=== PATIENT | female | born 1940 | race Caucasian/White ===

== ENCOUNTER → 2016-09-04 | Outpatient (REF) | payer MEDICARE, OTHER ==
[~2016-09-04] MED LIST: ACET50TAOT PO; ASPI1TAB PO; ATOR1TAB21 PO; CALCTAB68 PO; CIPR500T3 PO; CIPR500T89 PO; COUM2.5T11 PO; DYAZ37.5 PO; EYEDRO OU; FLAG500T PO; LEVO50TA45 PO; LEXA1TAB PO; LEXA1TAB2 PO; LIDO5TD TD; LIPI10TA PO; MAGN400T5 PO; MECL-68 PO; METR500T10 PO; OXYC1TAB23 PO; PERCOCET PO; POTA10CA PO; PREV30CA11 PO; SYNT100T PO; SYNT88TA2 PO; TRIA37.5 PO; TYLE325T5 PO; VITA100066 PO; VITA400C2 PO; VITA500T3 PO; XANA0.5T PO; XARE10TA PO; XARE15TA PO; ZOFR20TA PO; [UNRECOGNIZED DRUG - CODE] PO; antivert PO; kdur PO; lidoderm patch TOP
== END ==
LOC: M SFHCPLAZ 16:58
PROVIDERS: ATTEND Family Medicine
DX: N30.01 Acute cystitis with hematuria (principal)

== ENCOUNTER → 2016-09-11 | Outpatient (CLI) | payer MEDICARE, OTHER ==
[2016-09-11 16:53] LABS: BASO % 0.4 % (0.0-1.0); EOS # 0.1 K/mm3 (0.0-0.50); EOS % 1.4 % (0.0-3.0); LARGE UNSTAINED CELL # 0.1 K/mm3 (0.0-0.4); LARGE UNSTAINED CELL % 0.9 % (0.0-4.0); LYMPH # 1.9 K/mm3 (1.5-4.5); LYMPH % 18.4 % (24.0-44.0); MEAN CORPUSCULAR HEMOGLOBIN 29.8 pg (27.0-33.0); MEAN CORPUSCULAR HGB CONC 33.3 g/dl (32.0-36.5); MEAN CORPUSCULAR VOLUME 89.6 fl (80.0-96.0); MONO # 0.7 K/mm3 (0.0-0.8); MONO % 6.6 % (0.0-5.0); NEUTROPHILS # 7.1 K/mm3 (1.8-7.7); NEUTROPHILS % 72.3 % (36.0-66.0); PLATELET COUNT, AUTOMATED 231 k/mm3 (150-450); RED CELL DISTRIBUTION WIDTH 14.1 % (11.5-14.5); WHITE BLOOD COUNT 9.8 K/mm3 (4.0-10.0)
--- NOTE | 2016-09-11 17:13 | REP ---
Clinical: Dyspnea. Pneumonia. Technique: PA and lateral. Comparison: 06/29/2016. Findings: Mediastinum and cardiac silhouette are normal. Trace left basilar fibroatelectatic changes are suggested and require correlation. No discrete focal consolidation, effusion, or pneumothorax. Skeletal structures intact. Impression: Acute versus chronic trace left basilar fibroatelectatic change. Signed by Nikita Song MD 09/11/2016 05:04 P
[2016-09-11 17:37] LABS: ERYTHROCYTE SEDIMENTATION RATE 2 mm/hr (0-30)
== END ==
LOC: M RAD 16:42
PROVIDERS: ATTEND Physician Assistant Medical
DX: J18.9 Pneumonia, unspecified organism (principal)
CPT/HCPCS: 71020; 85025; 85379; 85652; G0463

== ENCOUNTER → 2016-09-15 | Outpatient (REF) | payer MEDICARE, OTHER | LOC: M SFHCPLAZ 15:44 | PROVIDERS: ATTEND Family Medicine | DX: J06.9 Acute upper respiratory infection, unspecified (principal) | CPT/HCPCS: 87486; 87581; 87633; 87798; G0463 ==

== ENCOUNTER → 2017-01-11 | Outpatient (REF) | payer MEDICARE, OTHER ==
[~2017-01-11] MED LIST changes: +CIPR-249 PO; -CIPR500T89 PO; -COUM2.5T11 PO; +COUM2.5T17 PO; +METR1TAB66 PO; -METR500T10 PO; +PREV1CAP PO; -PREV30CA11 PO; -VITA400C2 PO; +VITA400C7 PO
== END ==
LOC: M SFHCPLAZ 11:50
PROVIDERS: ATTEND Family Medicine
DX: N30.01 Acute cystitis with hematuria (principal)
CPT/HCPCS: 81002; 87088; 87186; G0463

== ENCOUNTER → 2017-01-26 | Outpatient (REF) | payer MEDICARE, OTHER ==
[2017-01-26 11:21] LABS: MEAN CORPUSCULAR HEMOGLOBIN 30.6 pg (27.0-33.0); MEAN CORPUSCULAR HGB CONC 33.1 g/dl (32.0-36.5); MEAN CORPUSCULAR VOLUME 92.6 fl (80.0-96.0); RED CELL DISTRIBUTION WIDTH 13.2 % (11.5-14.5); WHITE BLOOD COUNT 8.7 K/mm3 (4.0-10.0)
[2017-01-26 11:32] LABS: ALBUMIN 3.2 GM/DL (3.2-5.2); BILIRUBIN,TOTAL 0.4 MG/DL (0.2-1.0); CALCIUM LEVEL 9.4 MG/DL (8.8-10.2); CREATININE FOR GFR 1.12 MG/DL (0.55-1.02); FREE T4 0.87 NG/DL (0.76-1.46); GLOMERULAR FILTRATION RATE 50.5 (>39); MAGNESIUM LEVEL 1.8 MG/DL (1.8-2.4); POTASSIUM SERUM 3.7 MEQ/L (3.5-5.1); TOTAL PROTEIN 6.4 GM/DL (6.4-8.2)
[2017-01-26 13:43] LABS: FOLATE 13.2 NG/ML
== END ==
LOC: M SFHCPLAZ 07:57
PROVIDERS: ATTEND Nurse Practitioner Family
DX: E53.8 Deficiency of other specified B group vitamins (principal); I10 Essential (primary) hypertension; E03.9 Hypothyroidism, unspecified; R73.03 Prediabetes; N18.3 Chronic kidney disease, stage 3 (moderate); E83.40 Disorders of magnesium metabolism, unspecified; E55.9 Vitamin D deficiency, unspecified

== ENCOUNTER → 2017-02-01 | Outpatient (REF) | payer MEDICARE, OTHER ==
[2017-02-01 12:20] LABS: CALCIUM LEVEL 9.5 MG/DL (8.8-10.2); CREATININE FOR GFR 1.24 MG/DL (0.55-1.02); GLOMERULAR FILTRATION RATE 44.9 (>39); POTASSIUM SERUM 4.1 MEQ/L (3.5-5.1)
== END ==
LOC: M SFHCPLAZ 09:03
PROVIDERS: ATTEND Family Medicine
DX: N18.3 Chronic kidney disease, stage 3 (moderate) (principal)
CPT/HCPCS: 80048; G0463

== ENCOUNTER → 2017-02-09 | Outpatient (REF) | payer MEDICARE, OTHER ==
[2017-02-09 14:38] LABS: CALCIUM LEVEL 8.7 MG/DL (8.8-10.2); CREATININE FOR GFR 1.12 MG/DL (0.55-1.02); GLOMERULAR FILTRATION RATE 50.5 (>39); MAGNESIUM LEVEL 2.3 MG/DL (1.8-2.4); POTASSIUM SERUM 3.9 MEQ/L (3.5-5.1)
== END ==
LOC: M LABDRAW1 13:40
PROVIDERS: ATTEND Internal Medicine Cardiovascular Disease
DX: I49.3 Ventricular premature depolarization (principal); I49.1 Atrial premature depolarization

== ENCOUNTER → 2017-03-01 | Outpatient (CLI) | payer MEDICARE, OTHER ==
--- NOTE | 2017-03-01 11:52 | REP ---
DUPLEX EXTREMITY VENOUS ULTRASOUND, BILATERAL LOWER EXTREMITY: HISTORY: Bilateral leg edema. History of prior pulmonary emboli. FINDINGS: The deep veins are anechoic and fully compressible from the groin to the popliteal fossa in the right and left lower extremity. Color flow imaging is homogeneous. Spectral Doppler interrogation demonstrates intact respiratory variation in flow and normal manual augmentation of flow. There is no evidence of deep vein thrombosis. There is a Self's cyst in the posteromedial popliteal soft tissues measuring 3.8 x 1.0 x 1.8 cm. IMPRESSION: Negative bilateral lower extremity duplex venous ultrasound. No evidence of deep vein thrombosis. There is a 3.8 cm Self's cyst in the posterior popliteal soft tissues. Signed by Mal Mesa MD 03/01/2017 02:11 P
== END ==
LOC: M RAD 11:08
PROVIDERS: ATTEND Family Medicine
DX: M71.21 Synovial cyst of popliteal space [Baker], right knee (principal); R60.0 Localized edema
CPT/HCPCS: 93970; G0463

== ENCOUNTER → 2017-04-13 | Outpatient (REF) | payer MEDICARE, OTHER ==
[2017-04-13 12:14] LABS: INR 0.97
== END ==
LOC: M LABDRAW1 10:30
PROVIDERS: ATTEND Physical Medicine & Rehabilitation
DX: D69.1 Qualitative platelet defects (principal); Z79.01 Long term (current) use of anticoagulants

== ENCOUNTER → 2017-05-27 | Outpatient (REF) | payer MEDICARE, OTHER | LOC: M LAB REF 13:10 | PROVIDERS: ATTEND Physical Medicine & Rehabilitation | DX: M47.816 Spondylosis without myelopathy or radiculopathy, lumbar region (principal) ==

== ENCOUNTER → 2017-07-14 | Outpatient (CLI) | payer MEDICARE, OTHER | LOC: M WHC 08:52 | DX: Z12.31 Encounter for screening mammogram for malignant neoplasm of breast (principal) | CPT/HCPCS: G0202 ==

== ENCOUNTER 2017-08-02 10:07 | Day surgery (SDC) | payer MEDICARE, OTHER ==
[2017-08-02] MEDS: NS 1,000 ML IV (10:33)
== END 2017-08-02 12:27 | disposition home or self-care (01) ==
LOC: M OPP 10:07
DX: Z12.11 Encounter for screening for malignant neoplasm of colon (principal); K64.0 First degree hemorrhoids; D12.3 Benign neoplasm of transverse colon; E03.9 Hypothyroidism, unspecified; F32.9 Major depressive disorder, single episode, unspecified; F41.9 Anxiety disorder, unspecified; N18.3 Chronic kidney disease, stage 3 (moderate); I12.9 Hypertensive chronic kidney disease with stage 1 through stage 4 chronic kidney disease, or unspecified chronic kidney disease; E78.00 Pure hypercholesterolemia, unspecified; G47.30 Sleep apnea, unspecified; K21.9 Gastro-esophageal reflux disease without esophagitis; R06.83 Snoring; J45.909 Unspecified asthma, uncomplicated; M70.61 Trochanteric bursitis, right hip; G62.9 Polyneuropathy, unspecified; Z79.891 Long term (current) use of opiate analgesic; Z79.899 Other long term (current) drug therapy; Z88.8 Allergy status to other drugs, medicaments and biological substances; Z86.79 Personal history of other diseases of the circulatory system; Z91.89 Other specified personal risk factors, not elsewhere classified; Z96.642 Presence of left artificial hip joint; Z80.0 Family history of malignant neoplasm of digestive organs; Z80.42 Family history of malignant neoplasm of prostate
CPT/HCPCS: 45385

== ENCOUNTER → 2017-09-15 | Outpatient (REF) | payer MEDICARE, OTHER ==
[2017-09-15 16:20] LABS: APPEARANCE, URINE HAZY (CLEAR); BACTERIA, URINE AUTO 1+ (NEGATIVE); BILIRUBIN, URINE AUTO NEGATIVE (NEGATIVE); BLOOD, URINE BLOOD NEGATIVE (NEGATIVE); COLOR, URINE YELLOW (YELLOW); GLUCOSE, URINE (UA) AUTO NEGATIVE (NEGATIVE); KETONE, URINE AUTO NEGATIVE (NEGATIVE); LEUKOCYTE ESTERASE, URINE AUTO 2+ (NEGATIVE); MUCUS, URINE SMALL (NEGATIVE); NITRITE, URINE AUTO NEGATIVE (NEGATIVE); PROTEIN, URINE AUTO NEGATIVE (NEGATIVE); RBC, URINE AUTO 1 /HPF (0-3); SPECIFIC GRAVITY URINE AUTO 1.017 (1.002-1.035); SQUAMOUS EPITHELIAL CELL UR AU 2 /HPF (0-6); UROBILINOGEN, URINE AUTO 0.2 mg/dL (0.0-2.0); WBC, URINE AUTO 25 /HPF (0-3)
== END ==
LOC: M SFHCPLAZ 11:02
DX: R35.0 Frequency of micturition (principal)
CPT/HCPCS: 81001

== ENCOUNTER → 2017-09-15 | Outpatient (CLI) | payer MEDICARE, OTHER | LOC: M SMT 11:22 | DX: M25.78 Osteophyte, vertebrae (principal); M43.16 Spondylolisthesis, lumbar region; Z79.899 Other long term (current) drug therapy | CPT/HCPCS: 72114; 81001 ==

== ENCOUNTER → 2017-11-01 | Outpatient (REF) | payer MEDICARE, OTHER ==
[2017-11-01 16:16] LABS: BLOOD UREA NITROGEN 16 MG/DL (7-18)
[2017-11-01 16:16] LABS: CREATININE FOR GFR 1.11 MG/DL (0.55-1.30); GLOMERULAR FILTRATION RATE 50.9 (>39)
== END ==
LOC: M LABDRAW1 15:00
DX: M51.36 Other intervertebral disc degeneration, lumbar region (principal); M51.37 Other intervertebral disc degeneration, lumbosacral region; M43.16 Spondylolisthesis, lumbar region
CPT/HCPCS: 82565

== ENCOUNTER → 2017-11-08 | Outpatient (REF) | payer MEDICARE, OTHER ==
[2017-11-08 12:04] LABS: PLATELET COUNT, AUTOMATED 288 10^3/uL (150-450)
[2017-11-08 12:17] LABS: PARTIAL THROMBOPLASTIN TIME 27.7 SECONDS (26.8-37.9); PROTHROMBIN TIME 13.3 SECONDS (12.4-14.5)
[2017-11-08 12:28] LABS: COLLAGEN EPINEPHRINE 92 SECONDS (74-162)
[2017-11-08 12:31] LABS: AMPHETAMINES URINE REFLEX NEGATIVE (NEGATIVE); BARBITURATES URINE REFLEX NEGATIVE (NEGATIVE); BENZODIAZEPINES URINE REFLEX NEGATIVE (NEGATIVE); CANNABINOIDS URINE REFLEX NEGATIVE (NEGATIVE); COCAINE METABOLITE URINE REFLE NEGATIVE (NEGATIVE); METHADONE URINE REFLEX NEGATIVE (NEGATIVE); OPIATES URINE REFLEX NEGATIVE (NEGATIVE); PHENCYCLIDINE URINE REFLEX NEGATIVE (NEGATIVE)
== END ==
LOC: M LABDRAW1 10:26
DX: Z01.818 Encounter for other preprocedural examination (principal); M51.37 Other intervertebral disc degeneration, lumbosacral region; Z79.899 Other long term (current) drug therapy
CPT/HCPCS: 85049

== ENCOUNTER → 2017-11-24 | Outpatient (CLI) | payer MEDICARE, OTHER ==
[2017-11-24 13:28] LABS: D-DIMER QUANT 491.8 ng/ml (<500)
== END ==
LOC: M RAD 12:28
DX: M71.21 Synovial cyst of popliteal space [Baker], right knee (principal); M79.89 Other specified soft tissue disorders; R06.02 Shortness of breath
CPT/HCPCS: 71046

== ENCOUNTER → 2017-12-06 | Outpatient (REF) | payer MEDICARE, OTHER ==
[2017-12-06 14:04] LABS: HEMATOCRIT 47.6 % (36.0-47.0); HEMOGLOBIN 15.4 g/dl (12.0-15.5); MEAN CORPUSCULAR HEMOGLOBIN 29.8 pg (27.0-33.0); MEAN CORPUSCULAR HGB CONC 32.4 g/dl (32.0-36.5); MEAN CORPUSCULAR VOLUME 92.2 fl (80.0-96.0); PLATELET COUNT, AUTOMATED 267 10^3/uL (150-450); RED BLOOD COUNT 5.16 10^6/uL (4.00-5.40); RED CELL DISTRIBUTION WIDTH 13.5 % (11.5-14.5); WHITE BLOOD COUNT 18.3 10^3/uL (4.0-10.0)
[2017-12-06 14:45] LABS: ANION GAP 8 MEQ/L (8-16); BLOOD UREA NITROGEN 17 MG/DL (7-18); CALCIUM LEVEL 8.6 MG/DL (8.8-10.2); CARBON DIOXIDE LEVEL 29 MEQ/L (21-32); CHLORIDE LEVEL 106 MEQ/L (98-107); CREATININE FOR GFR 1.12 MG/DL (0.55-1.30); GLOMERULAR FILTRATION RATE 50.4 (>39); GLUCOSE, FASTING 95 MG/DL (70-100); SODIUM LEVEL 143 MEQ/L (136-145)
== END ==
LOC: M LABDRAW1 11:30
DX: I31.3 Pericardial effusion (noninflammatory) (principal); E87.6 Hypokalemia
CPT/HCPCS: 80048

== ENCOUNTER → 2018-04-20 | Outpatient (CLI) | payer MEDICARE, OTHER ==
[~2018-04-20] MED LIST changes: -ACET50TAOT PO; -ASPI1TAB PO; -ATOR1TAB21 PO; -CALCTAB68 PO; -CIPR-249 PO; -CIPR500T3 PO; -COUM2.5T17 PO; -DYAZ37.5 PO; -EYEDRO OU; -FLAG500T PO; +GASTROGRAFIN SOLUTION 30ML (Q9963) As Ordered; -LEVO50TA45 PO; -LEXA1TAB PO; -LEXA1TAB2 PO; -LIDO5TD TD; -LIPI10TA PO; -MAGN400T5 PO; -MECL-68 PO; -METR1TAB66 PO; -OXYC1TAB23 PO; -PERCOCET PO; -POTA10CA PO; -PREV1CAP PO; -SYNT100T PO; -SYNT88TA2 PO; -TRIA37.5 PO; -TYLE325T5 PO; -VITA100066 PO; -VITA400C7 PO; -VITA500T3 PO; -XANA0.5T PO; -XARE10TA PO; -XARE15TA PO; -ZOFR20TA PO; -[UNRECOGNIZED DRUG - CODE] PO; -antivert PO; -kdur PO; -lidoderm patch TOP
== END ==
LOC: M RAD 15:11
DX: R11.2 Nausea with vomiting, unspecified (principal); Z90.49 Acquired absence of other specified parts of digestive tract; K57.30 Diverticulosis of large intestine without perforation or abscess without bleeding; Z90.710 Acquired absence of both cervix and uterus; K76.89 Other specified diseases of liver
CPT/HCPCS: Q9963

== ENCOUNTER → 2018-04-26 | Outpatient (CLI) | payer MEDICARE, OTHER | LOC: M RAD 08:08 | DX: R10.84 Generalized abdominal pain (principal) | CPT/HCPCS: 76705 ==

== ENCOUNTER → 2018-05-12 | Outpatient (REF) | payer MEDICARE, OTHER ==
[2018-05-12 12:49] LABS: ANION GAP 11 MEQ/L (8-16); BLOOD UREA NITROGEN 9 MG/DL (7-18); CALCIUM LEVEL 9.1 MG/DL (8.8-10.2); CARBON DIOXIDE LEVEL 29 MEQ/L (21-32); CHLORIDE LEVEL 102 MEQ/L (98-107); CREATININE FOR GFR 0.95 MG/DL (0.55-1.30); GLOMERULAR FILTRATION RATE > 60.0 (>39); GLUCOSE, FASTING 130 MG/DL (70-100); MAGNESIUM LEVEL 1.7 MG/DL (1.8-2.4); POTASSIUM SERUM 3.8 MEQ/L (3.5-5.1); SODIUM LEVEL 142 MEQ/L (136-145)
== END ==
LOC: M SHH 12:02
DX: I10 Essential (primary) hypertension (principal); E87.6 Hypokalemia
CPT/HCPCS: 83735

== ENCOUNTER → 2018-05-25 | Outpatient (CLI) | payer MEDICARE, OTHER ==
[2018-05-25 07:47] LABS: AMORPHOUS SEDIMENT SMALL (NEGATIVE); APPEARANCE, URINE TURBID (CLEAR); BACTERIA, URINE AUTO 3+ (NEGATIVE); BILIRUBIN, URINE AUTO NEGATIVE (NEGATIVE); BLOOD, URINE BLOOD 1+ (NEGATIVE); COLOR, URINE AMBER (YELLOW); GLUCOSE, URINE (UA) AUTO NEGATIVE (NEGATIVE); KETONE, URINE AUTO NEGATIVE (NEGATIVE); LEUKOCYTE ESTERASE, URINE AUTO 3+ (NEGATIVE); NITRITE, URINE AUTO POSITIVE (NEGATIVE); PROTEIN, URINE AUTO 1+ mg/dL (NEGATIVE); RBC, URINE AUTO 14 /HPF (0-3); SPECIFIC GRAVITY URINE AUTO 1.016 (1.002-1.035); SQUAMOUS EPITHELIAL CELL UR AU 4 /HPF (0-6); TRANSITIONAL EPITHELIAL AUTO 2 /HPF; UROBILINOGEN, URINE AUTO 0.2 mg/dL (0.0-2.0); WBC, URINE AUTO TNTC /HPF (0-3)
[2018-05-25 08:05] LABS: ANION GAP 8 MEQ/L (8-16); BLOOD UREA NITROGEN 15 MG/DL (7-18); CALCIUM LEVEL 9.9 MG/DL (8.8-10.2); CARBON DIOXIDE LEVEL 29 MEQ/L (21-32); CHLORIDE LEVEL 105 MEQ/L (98-107); GLOMERULAR FILTRATION RATE 46.4 (>39); GLUCOSE, FASTING 108 MG/DL (70-100); POTASSIUM SERUM 4.7 MEQ/L (3.5-5.1); SODIUM LEVEL 142 MEQ/L (136-145)
== END ==
LOC: M LAB 07:08
DX: I10 Essential (primary) hypertension (principal); E03.9 Hypothyroidism, unspecified; R30.1 Vesical tenesmus
CPT/HCPCS: 83735

== ENCOUNTER → 2018-07-26 | Outpatient (CLI) | payer MEDICARE, OTHER ==
[~2018-07-26] MED LIST changes: +ACET500T15 PO; +ASPI1TAB PO; +ATOR1TAB21 PO; +BREO1INH INH; +CALCTAB68 PO; +CIPR-249 PO; +CIPR500T3 PO; +COUM2.5T17 PO; +DYAZ37.5 PO; +EYEDRO OU; +FLAG500T PO; -GASTROGRAFIN SOLUTION 30ML (Q9963) As Ordered; +K-TA10TA2 PO; +KLOR10TA76 PO; +LEVO50TA45 PO; +LEXA1TAB PO; +LEXA1TAB2 PO; +LIDO5TD TD; +LIPI10TA PO; +MAGN400T5 PO; +MECL-68 PO; +METR-201 PO; +OXYC1TAB23 PO; +PERCOCET PO; +PREV1CAP PO; +PROAAER10 INH; +SYNT100T PO; +SYNT88TA2 PO; +TRIA37.5 PO; +TYLE325T5 PO; +VITA100066 PO; +VITA400C7 PO; +VITA500T3 PO; +XANA0.5T PO; +XARE10TA PO; +XARE15TA PO; +ZOFR4TAB16 PO; +[UNRECOGNIZED DRUG - CODE] PO; +antivert PO; +kdur PO; +lidoderm patch TOP
--- NOTE | 2018-07-26 16:58 | REP ---
Digital diagnostic unilateral right breast mammography with CAD and focused right breast sonography: History: Screening mammography July 15, 2018 was BIRADS category 0 incomplete because of a 5 mm nodular density projecting just lateral to the plane of the nipple in the anterior third of the right breast in the 9 o'clock position. Comparison mammography is also reviewed from July 14, 2017 and July 06, 2016. Mammographic findings: Magnified focal spot compression CC, MLO and true ML views were obtained. These confirm the presence of a relatively low density sharply circumscribed 5 mm nodule lateral and slightly inferior to the plane of the nipple, 8-o'clock to 9-o'clock position. No other mammographic findings. Sonographic findings: The right breast is scanned sonographically from 8-o'clock to 10 o'clock focusing on the 9 o'clock area. Somewhat heterogeneous fibroglandular background echotexture is seen. No suspicious sonographic finding is observed. No cyst or mass lesion is seen. No sonographic correlate for the nodule. Impression: BIRADS category is felt to be best described as category 4 suspicious right breast imaging. Nodular neodensity 5 mm in diameter right breast anterior third inferolateral aspect. There is no sonographic correlate. Stereotactic needle biopsy of the right breast is recommended. BI-RADS/ACR category 4 mammogram. Suspicious abnormality - biopsy should be considered. Usually requires biopsy. This mammogram was interpreted with the aid of an FDA-approved computer-aided detection system. The patient states that she/he has not had a clinical breast exam in over a year. The patient letter being requested is m#[id number] . Electronically Signed by Mal Mesa MD 07/26/2018 05:11 P
== END ==
LOC: M RAD 14:24
PROVIDERS: ATTEND Family Medicine
DX: R92.8 Other abnormal and inconclusive findings on diagnostic imaging of breast (principal)

== ENCOUNTER → 2018-07-27 | Outpatient (REF) | payer MEDICARE, OTHER | LOC: M LABDRAW1 11:53 | PROVIDERS: ATTEND Physical Medicine & Rehabilitation | DX: M48.07 Spinal stenosis, lumbosacral region (principal); Z79.899 Other long term (current) drug therapy ==

== ENCOUNTER → 2018-08-09 | Outpatient (CLI) | payer MEDICARE, OTHER ==
[~2018-08-09] MED LIST changes: +LIDOCAINE 1% MDV 20ML VIAL As Ordered ONE
--- NOTE | 2018-08-09 16:41 | REP ---
Unilateral diagnostic right breast mammography and attempted stereotactic needle biopsy: History: Nodular neodensity identified on screening and diagnostic mammography from July 15, 2018 and July 26, 2018 in the left breast retroareolar region laterally. Comparison mammography is from those two dates as well as July 14, 2017. In anticipation of a lateral medial needle approach, a right lateral medial mammogram was obtained and a low density small sub-centimeter nodule was felt to be present in the retroareolar region. The patient was interviewed and informed consent was obtained. The patient was placed in a right lateral medial imaging projection and patient safety time-out was articulated and agreed to. Stereotactic imaging was performed several times with repositioning of the right breast in this projection and we could not identify the target nodule on any of the stereotactic images from the lateral medial projection. Accordingly, the patient was placed in a craniocaudal projection and again stereotactic targeting images fail to demonstrate the nodule. A craniocaudal view was obtained with the compression grid in place to see if we could identify the nodule and perhaps recommend needle localization directed excisional biopsy. However, once again the target was not visualized. Finally a standard craniocaudal mammography with repeat 3-D tomography view was obtained. A high-quality image was retrieved and neither the 2-D or the 3-D tomosynthesis images demonstrate the nodule. Accordingly, the stereotactic needle biopsy procedure was aborted. Impression: Stereotactic needle biopsy not performed because of failure to identify and reproduce the nodule on mammographic images. A small cyst which regressed or compressed away is a possibility. In any event, we could not accomplish any targeting. I would recommend 6-month followup unilateral right breast mammogram be performed. This was reviewed with the patient. This mammogram was interpreted with the aid of an FDA-approved computer-aided detection system. The patient letter being requested is m#[email or web address]. Electronically Signed by Mal Mesa MD 08/09/2018 05:39 P
== END ==
LOC: M RADPRO 10:58
PROVIDERS: ATTEND Family Medicine
DX: M54.5 Low back pain (principal); F32.2 Major depressive disorder, single episode, severe without psychotic features; J20.9 Acute bronchitis, unspecified

== ENCOUNTER → 2018-08-09 | Outpatient (CLI) | payer MEDICARE, OTHER ==
[~2018-08-09] MED LIST changes: -LIDOCAINE 1% MDV 20ML VIAL As Ordered ONE
[2018-08-09 11:27] LABS: BASO % 0.5 % (0.0-1.0); EOS # 0.1 10^3/uL (0.0-0.50); EOS % 1.1 % (0.0-3.0); HEMATOCRIT 46.2 % (36.0-47.0); HEMOGLOBIN 14.9 g/dl (12.0-15.5); LYMPH # 1.6 10^3/uL (1.5-4.5); LYMPH % 18.6 % (24.0-44.0); MEAN CORPUSCULAR HEMOGLOBIN 29.8 pg (27.0-33.0); MEAN CORPUSCULAR HGB CONC 32.3 g/dl (32.0-36.5); MEAN CORPUSCULAR VOLUME 92.4 fl (80.0-96.0); MONO # 0.6 10^3/uL (0.0-0.8); MONO % 6.8 % (0.0-5.0); NEUTROPHILS # 6.1 10^3/uL (1.8-7.7); NEUTROPHILS % 72.6 % (36.0-66.0); PLATELET COUNT, AUTOMATED 242 10^3/uL (150-450); WHITE BLOOD COUNT 8.4 10^3/uL (4.0-10.0)
[2018-08-09 11:52] LABS: ERYTHROCYTE SEDIMENTATION RATE 3 mm/hr (0-30)
[2018-08-09 11:58] LABS: RHEUMATOID FACTOR QUANT < 10.0 IU/ML (<15.0)
[2018-08-10 11:04] LABS: VITAMIN B12 LEVEL 527 PG/ML (232-1245)
== END ==
LOC: M LAB 10:45
PROVIDERS: ATTEND Family Medicine
DX: M54.5 Low back pain (principal); F32.2 Major depressive disorder, single episode, severe without psychotic features; J20.9 Acute bronchitis, unspecified

== ENCOUNTER → 2018-11-22 | Outpatient (REF) | payer MEDICARE, OTHER ==
[~2018-11-22] MED LIST changes: -ASPI1TAB PO; +ASPI81TA26 PO; +LIDO1PAD TD; -LIDO5TD TD; -METR-201 PO; +METR-265 PO
== END ==
LOC: M LAB REF 16:02
PROVIDERS: ATTEND Internal Medicine Gastroenterology
DX: R19.7 Diarrhea, unspecified (principal)

== ENCOUNTER → 2019-02-02 | Outpatient (CLI) | payer MEDICARE, OTHER ==
[~2019-02-02] MED LIST changes: +CYAN500T8 PO; -VITA500T3 PO
--- NOTE | 2019-02-02 11:10 | REP ---
UNILATERAL MAMMOGRAM RIGHT BREAST WITH 3D TOMOSYNTHESIS: Unilateral mammogram of the right breast is performed with 3D tomosynthesis. A 5 mm nodule is identified by mammography on the examinations of 07/15/2018 and 07/26/2018 and stereotactic biopsy was subsequently attempted 08/09/2018. However, the nodule could not be identified at the time of the biopsy. This is a 6 month followup. There is mild scattered fibroglandular tissue again noted in the right breast. The previously noted 5 mm nodule inferolaterally is no longer present. This probably represented a cyst which has resolved. No suspicious nodule is seen in the right breast. There is mild postsurgical architectural distortion from a remote benign excisional biopsy. No clustered microcalcifications are seen. IMPRESSION: BIRADS 2: BI-RADS/ACR category 2 mammogram. Benign Findings. ACR 2 benign mammogram right breast. Previously noted 5 mm nodule inferolaterally in the right breast is no longer present and probably represented a cyst which has now resolved. No suspicious mass or clustered microcalcifications. Recommend followup bilateral mammogram June 2019. This mammogram was interpreted with the aid of an FDA-approved computer-aided detection system. The patient states he/she had a clinical breast exam in 07/2018. The patient letter being requested is M1. Electronically Signed by Tulio Dahl MD 02/05/2019 07:07 P
== END ==
LOC: M RAD 09:55
PROVIDERS: ATTEND Family Medicine
DX: R92.0 Mammographic microcalcification found on diagnostic imaging of breast (principal)
CPT/HCPCS: 77065; G0279

== ENCOUNTER → 2019-07-14 | Outpatient (CLI) | payer MEDICARE, OTHER ==
[~2019-07-14] MED LIST changes: +POTA20PI2 PO; -[UNRECOGNIZED DRUG - CODE] PO
--- NOTE | 2019-07-14 14:16 | REPMRS ---
Patient History The patient states she has not had a clinical breast exam in over a year. Family history of prostate cancer and colorectal cancer under age 50 in brother, prostate cancer at age 50 or over in brother, colorectal cancer and prostate cancer at age 50 in brother, pancreatic cancer at age 51 in father. Benign excisional biopsy of the right breast. No Hormone Replacement Therapy 3D TOMOSYNTHESIS WAS PERFORMED. The [facility] lifetime risk for breast cancer is 1.8%. Digital Mammo Screening Bilat: July 14, 2019 - Exam #: [id number] Bilateral CC and MLO view(s) were taken. Technologist: Nicolasa Jensen, Technologist Prior study comparison: February 02, 2019, right breast digital mammo diagnostic unilateral performed at [facility]. July 26, 2018, right breast digital mammo diagnostic unilateral performed at [facility]. FINDINGS: There are scattered fibroglandular densities. There has been no change in the appearance of the mammogram from the prior studies. There is a mild amount of residual fibroglandular tissue which is fairly symmetric. There is no interval development of dominant mass, architectural distortion, or clustered microcalcification suggestive of malignancy. Assessment: BI-RADS/ACR category 1 mammogram. Negative Mammogram. Recommendation Routine screening mammogram in 1 year (for women over age 40). This mammogram was interpreted with the aid of an FDA-approved computer-aided dectection system. Electronically Signed By: Tulio Dahl MD 07/14/19 [id number]
== END ==
LOC: M RAD 13:33
PROVIDERS: ATTEND Family Medicine
DX: Z12.31 Encounter for screening mammogram for malignant neoplasm of breast (principal)

== ENCOUNTER → 2019-09-25 | Outpatient (REF) | payer MEDICARE, OTHER ==
[~2019-09-25] MED LIST changes: -MECL-68 PO; +MECL1TAB31 PO
[2019-09-25 13:25] LABS: APPEARANCE, URINE CLEAR (CLEAR); BACTERIA, URINE AUTO 3+ (NEGATIVE); BILIRUBIN, URINE AUTO NEGATIVE (NEGATIVE); BLOOD, URINE BLOOD NEGATIVE (NEGATIVE); COLOR, URINE YELLOW (YELLOW); GLUCOSE, URINE (UA) AUTO NEGATIVE (NEGATIVE); KETONE, URINE AUTO NEGATIVE (NEGATIVE); LEUKOCYTE ESTERASE, URINE AUTO NEGATIVE (NEGATIVE); MUCUS, URINE SMALL (NEGATIVE); NITRITE, URINE AUTO POSITIVE (NEGATIVE); PROTEIN, URINE AUTO NEGATIVE (NEGATIVE); RBC, URINE AUTO 1 /HPF (0-3); SPECIFIC GRAVITY URINE AUTO 1.013 (1.002-1.035); SQUAMOUS EPITHELIAL CELL UR AU 0 /HPF (0-6); UROBILINOGEN, URINE AUTO 0.2 mg/dL (0.0-2.0); WBC, URINE AUTO 3 /HPF (0-3)
[2019-09-25 13:42] LABS: BASO # 0.1 10^3/uL (0.0-0.2); BASO % 0.8 % (0.0-1.0); EOS # 0.2 10^3/uL (0.0-0.5); EOS % 2.6 % (0.0-3.0); HEMATOCRIT 44.8 % (36.0-47.0); HEMOGLOBIN 13.8 g/dl (12.0-15.5); LYMPH # 1.6 10^3/uL (1.5-5.0); LYMPH % 23.5 % (24.0-44.0); MEAN CORPUSCULAR HEMOGLOBIN 29.4 pg (27.0-33.0); MEAN CORPUSCULAR HGB CONC 30.8 g/dl (32.0-36.5); MEAN CORPUSCULAR VOLUME 95.5 fl (80.0-96.0); MONO # 0.5 10^3/uL (0.0-0.8); MONO % 7.2 % (0.0-5.0); NEUTROPHILS # 4.3 10^3/uL (1.5-8.5); PLATELET COUNT, AUTOMATED 233 10^3/uL (150-450); RED BLOOD COUNT 4.69 10^6/uL (4.00-5.40); WHITE BLOOD COUNT 6.6 10^3/uL (4.0-10.0)
[2019-09-25 13:45] LABS: ALBUMIN 3.4 GM/DL (3.2-5.2); BILIRUBIN,TOTAL 0.4 MG/DL (0.2-1.0); CALCIUM LEVEL 8.6 MG/DL (8.8-10.2); CHOLESTEROL RISK RATIO 3.372 (<5); CREATININE FOR GFR 1.01 MG/DL (0.55-1.30); FREE T4 1.08 NG/DL (0.76-1.46); GLOMERULAR FILTRATION RATE 56.4 (>39); POTASSIUM SERUM 4.1 MEQ/L (3.5-5.1); THYROID STIMULATING HORMONE 1.73 uIU/ML (0.358-3.740); TOTAL 25(OH) VITAMIN D 35.8 NG/ML (30.0-100.0)
== END ==
LOC: M LABDRAW1 09:10
PROVIDERS: ATTEND Family Medicine
DX: K21.9 Gastro-esophageal reflux disease without esophagitis (principal); I10 Essential (primary) hypertension; E03.9 Hypothyroidism, unspecified; R30.0 Dysuria

== ENCOUNTER → 2019-11-13 | Outpatient (REF) | payer MEDICARE, OTHER | LOC: M LAB REF 16:27 | PROVIDERS: ATTEND Physical Medicine & Rehabilitation | DX: M43.16 Spondylolisthesis, lumbar region (principal); Z79.899 Other long term (current) drug therapy ==

== ENCOUNTER → 2019-11-28 | Outpatient (REF) | payer MEDICARE, OTHER ==
[~2019-11-28] MED LIST changes: +CYAN500T14 PO; -CYAN500T8 PO
[2019-11-28 10:49] LABS: APPEARANCE, URINE CLOUDY (CLEAR); BACTERIA, URINE AUTO 2+ (NEGATIVE); BILIRUBIN, URINE AUTO NEGATIVE (NEGATIVE); BLOOD, URINE BLOOD NEGATIVE (NEGATIVE); COLOR, URINE YELLOW (YELLOW); GLUCOSE, URINE (UA) AUTO NEGATIVE (NEGATIVE); KETONE, URINE AUTO NEGATIVE (NEGATIVE); LEUKOCYTE ESTERASE, URINE AUTO 3+ (NEGATIVE); MUCUS, URINE SMALL (NEGATIVE); NITRITE, URINE AUTO POSITIVE (NEGATIVE); PROTEIN, URINE AUTO NEGATIVE (NEGATIVE); RBC, URINE AUTO 2 /HPF (0-3); SPECIFIC GRAVITY URINE AUTO 1.018 (1.002-1.035); SQUAMOUS EPITHELIAL CELL UR AU 1 /HPF (0-6); UROBILINOGEN, URINE AUTO 0.2 mg/dL (0.0-2.0); WBC, URINE AUTO 31 /HPF (0-3)
== END ==
LOC: M LAB REF 10:13
PROVIDERS: ATTEND Specialist
DX: N39.0 Urinary tract infection, site not specified (principal)

== ENCOUNTER → 2020-02-15 | Outpatient (REF) | payer MEDICARE, OTHER ==
[~2020-02-15] MED LIST changes: -CYAN500T14 PO; +CYAN500T8 PO
[2020-03-12 12:44] LABS: APPEARANCE, URINE CLEAR (CLEAR); BACTERIA, URINE AUTO 1+ (NEGATIVE); BILIRUBIN, URINE AUTO NEGATIVE (NEGATIVE); BLOOD, URINE BLOOD NEGATIVE (NEGATIVE); COLOR, URINE YELLOW (YELLOW); GLUCOSE, URINE (UA) AUTO NEGATIVE (NEGATIVE); KETONE, URINE AUTO NEGATIVE (NEGATIVE); LEUKOCYTE ESTERASE, URINE AUTO TRACE (NEGATIVE); NITRITE, URINE AUTO POSITIVE (NEGATIVE); PROTEIN, URINE AUTO NEGATIVE (NEGATIVE); RBC, URINE AUTO 2 /HPF (0-3); SPECIFIC GRAVITY URINE AUTO 1.009 (1.002-1.035); SQUAMOUS EPITHELIAL CELL UR AU 0 /HPF (0-6); UROBILINOGEN, URINE AUTO 0.2 mg/dL (0.0-2.0); WBC, URINE AUTO 7 /HPF (0-3)
== END ==
LOC: M LAB REF 10:59
PROVIDERS: ATTEND Physician Assistant
DX: N39.0 Urinary tract infection, site not specified (principal)

== ENCOUNTER → 2020-05-24 | Outpatient (REF) | payer MEDICARE, OTHER ==
[2020-05-24 14:06] LABS: APPEARANCE, URINE CLEAR (CLEAR); BACTERIA, URINE AUTO NEGATIVE (NEGATIVE); BILIRUBIN, URINE AUTO NEGATIVE (NEGATIVE); BLOOD, URINE BLOOD NEGATIVE (NEGATIVE); COLOR, URINE YELLOW (YELLOW); GLUCOSE, URINE (UA) AUTO NEGATIVE (NEGATIVE); KETONE, URINE AUTO NEGATIVE (NEGATIVE); LEUKOCYTE ESTERASE, URINE AUTO 2+ (NEGATIVE); MUCUS, URINE SMALL (NEGATIVE); NITRITE, URINE AUTO POSITIVE (NEGATIVE); PROTEIN, URINE AUTO NEGATIVE (NEGATIVE); RBC, URINE AUTO 0 /HPF (0-3); SPECIFIC GRAVITY URINE AUTO 1.006 (1.002-1.035); SQUAMOUS EPITHELIAL CELL UR AU 0 /HPF (0-6); UROBILINOGEN, URINE AUTO 0.2 mg/dL (0.0-2.0); WBC, URINE AUTO 12 /HPF (0-3)
== END ==
LOC: M LAB REF 11:56
PROVIDERS: ATTEND Physician Assistant
DX: N39.0 Urinary tract infection, site not specified (principal)

== ENCOUNTER → 2020-07-15 | Outpatient (CLI) | payer MEDICARE, OTHER ==
[~2020-07-15] MED LIST changes: +CYAN500T14 PO; -CYAN500T8 PO
--- NOTE | 2020-07-15 14:11 | REPMRS ---
Patient History The patient states she has not had a clinical breast exam in over a year. Family history of prostate cancer and colorectal cancer under age 50 in brother, prostate cancer at age 50 or over in brother, colorectal cancer and prostate cancer at age 50 in brother, pancreatic cancer at age 51 in father, pancreatic cancer at age 38 in unspecified relative. Benign excisional biopsy of the right breast. No Hormone Replacement Therapy Digital Woman Screen Mammo: July 15, 2020 - Exam #: [id number] Bilateral CC and MLO view(s) were taken. Technologist: Ivania Ornelas, Technologist Prior study comparison: July 14, 2019, bilateral digital mammo screening bilat, performed at [facility]. February 02, 2019, right breast digital mammo diagnostic unilateral, performed at [facility]. July 15, 2018, bilateral digital woman screen mammo performed at [facility]. July 14, 2017, digital woman screen mammo performed at [facility]. FINDINGS: There are scattered fibroglandular densities. The Volpara volumetric breast density category is:B. There has been no change in the appearance of the mammogram from the prior studies. There is a mild amount of scattered fibroglandular density which is fairly symmetric. There is no interval development of dominant mass, architectural distortion, or grouped microcalcification suggestive of malignancy. 3-D tomosynthesis shows no additional findings. Assessment: BI-RADS/ACR category 1 mammogram. Negative Mammogram. Recommendation Routine screening mammogram of both breasts in 1 year (for women over age 40). This patient's [facility] Lifetime Breast Cancer Risk is estimated at 1.6 %. This mammogram was interpreted with the aid of an FDA-approved computer-aided dectection system. Electronically Signed By: Gilbert Mesa MD 07/15/20 [id number]
== END ==
LOC: M WHC 13:32
PROVIDERS: ATTEND Physician Assistant
DX: Z12.31 Encounter for screening mammogram for malignant neoplasm of breast (principal); Z80.42 Family history of malignant neoplasm of prostate; Z80.0 Family history of malignant neoplasm of digestive organs; Z86.018 Personal history of other benign neoplasm

== ENCOUNTER → 2020-08-27 | Outpatient (CLI) | payer MEDICARE, OTHER | LOC: M LAB 15:37 | PROVIDERS: ATTEND Physical Medicine & Rehabilitation | DX: M70.62 Trochanteric bursitis, left hip (principal) ==

== ENCOUNTER → 2020-08-27 | Outpatient (REF) | payer MEDICARE, OTHER ==
[2020-08-27 16:35] LABS: APPEARANCE, URINE HAZY (CLEAR); BACTERIA, URINE AUTO NEGATIVE (NEGATIVE); BILIRUBIN, URINE AUTO NEGATIVE (NEGATIVE); BLOOD, URINE BLOOD NEGATIVE (NEGATIVE); COLOR, URINE YELLOW (YELLOW); GLUCOSE, URINE (UA) AUTO NEGATIVE (NEGATIVE); KETONE, URINE AUTO NEGATIVE (NEGATIVE); LEUKOCYTE ESTERASE, URINE AUTO 2+ (NEGATIVE); MUCUS, URINE SMALL (NEGATIVE); NITRITE, URINE AUTO POSITIVE (NEGATIVE); PROTEIN, URINE AUTO NEGATIVE (NEGATIVE); RBC, URINE AUTO 2 /HPF (0-3); SPECIFIC GRAVITY URINE AUTO 1.009 (1.002-1.035); SQUAMOUS EPITHELIAL CELL UR AU 1 /HPF (0-6); UROBILINOGEN, URINE AUTO 0.2 mg/dL (0.0-2.0); WBC, URINE AUTO 16 /HPF (0-3)
== END ==
LOC: M LAB REF 15:59
PROVIDERS: ATTEND Physician Assistant
DX: N39.0 Urinary tract infection, site not specified (principal)

== ENCOUNTER → 2020-09-09 | Outpatient (REF) | payer MEDICARE, OTHER ==
[2020-09-09 19:53] LABS: APPEARANCE, URINE MANUAL TURBID (CLEAR); COLOR, URINE MANUAL DK YELLOW (YELLOW)
[2020-09-09 19:54] LABS: BILIRUBIN, URINE MANUAL NEGATIVE (NEGATIVE); BLOOD URINE MANUAL TRACE (NEGATIVE); GLUCOSE, URINE (UA) MANUAL NEGATIVE (NEGATIVE); KETONE, URINE MANUAL NEGATIVE (NEGATIVE); LEUKOCYTE ESTERASE, URINE MAN POSITIVE (NEGATIVE); NITRITE, URINE MANUAL POSITIVE (NEGATIVE); PROTEIN, URINE MANUAL NEGATIVE (NEGATIVE); UROBILINOGEN, URINE MANUAL NORMAL (NORMAL)
[2020-09-09 20:41] LABS: AMORPHOUS SEDIMENT, URINE LARGE AMOUNT (NEGATIVE); BACTERIA, URINE LARGE AMOUNT; CALCIUM OXALATE CRYSTALS,URINE MOD AMOUNT /hpf; MUCUS, URINE SMALL AMOUNT (NEGATIVE); RENAL EPITHELIAL CELLS, URINE SMALL AMOUNT /hpf; SQUAMOUS EPITHELIAL CELL URINE SMALL AMOUNT /hpf (SMALL AMT); TRANSITIONAL EPI CELLS, URINE MOD AMOUNT /hpf; WBC, URINE TNTC /hpf (0-3)
[2020-09-09 20:43] LABS: HYALINE CAST, URINE NONE SEEN /lpf (0-1)
== END ==
LOC: M LAB REF 18:26
PROVIDERS: ATTEND Physician Assistant
DX: N39.0 Urinary tract infection, site not specified (principal)

== ENCOUNTER → 2020-09-21 | Outpatient (CLI) | payer MEDICARE, OTHER ==
[2020-09-21 11:07] LABS: BASO % 0.4 % (0.0-1.0); EOS # 0.1 10^3/uL (0.0-0.5); EOS % 1.8 % (0.0-3.0); LYMPH # 1.3 10^3/uL (1.5-5.0); MEAN CORPUSCULAR HEMOGLOBIN 27.9 pg (27.0-33.0); MEAN CORPUSCULAR HGB CONC 30.4 g/dl (32.0-36.5); MEAN CORPUSCULAR VOLUME 91.6 fl (80.0-96.0); MONO # 0.4 10^3/uL (0.0-0.8); MONO % 6.5 % (2.0-8.0); NEUTROPHILS # 4.9 10^3/uL (1.5-8.5); NEUTROPHILS % 72.2 % (36.0-66.0); PLATELET COUNT, AUTOMATED 225 10^3/uL (150-450); RED BLOOD COUNT 5.02 10^6/uL (4.00-5.40); WHITE BLOOD COUNT 6.8 10^3/uL (4.0-10.0)
[2020-09-21 11:10] LABS: AMORPHOUS SEDIMENT SMALL (NEGATIVE); APPEARANCE, URINE HAZY (CLEAR); BACTERIA, URINE AUTO 1+ (NEGATIVE); BILIRUBIN, URINE AUTO NEGATIVE (NEGATIVE); BLOOD, URINE BLOOD NEGATIVE (NEGATIVE); COLOR, URINE YELLOW (YELLOW); GLUCOSE, URINE (UA) AUTO NEGATIVE (NEGATIVE); KETONE, URINE AUTO NEGATIVE (NEGATIVE); LEUKOCYTE ESTERASE, URINE AUTO 3+ (NEGATIVE); NITRITE, URINE AUTO NEGATIVE (NEGATIVE); PROTEIN, URINE AUTO NEGATIVE (NEGATIVE); RBC, URINE AUTO 2 /HPF (0-3); SPECIFIC GRAVITY URINE AUTO 1.014 (1.002-1.035); SQUAMOUS EPITHELIAL CELL UR AU 2 /HPF (0-6); TRANSITIONAL EPITHELIAL AUTO 1 /HPF; UROBILINOGEN, URINE AUTO 0.2 mg/dL (0.0-2.0); WBC, URINE AUTO 7 /HPF (0-3)
[2020-09-21 11:40] LABS: ALBUMIN 3.3 GM/DL (3.2-5.2); BILIRUBIN,TOTAL 0.4 MG/DL (0.2-1.0); CALCIUM LEVEL 8.9 MG/DL (8.8-10.2); CHOLESTEROL RISK RATIO 3.369 (<5); GLOMERULAR FILTRATION RATE 56.9 (>39); MAGNESIUM LEVEL 1.9 MG/DL (1.8-2.4); POTASSIUM SERUM 4.5 MEQ/L (3.5-5.1); THYROID STIMULATING HORMONE 0.408 uIU/ML (0.358-3.740); TOTAL PROTEIN 6.4 GM/DL (6.4-8.2)
[2020-09-21 11:59] LABS: HEMOGLOBIN A1c 5.6 %
[2020-09-23 09:56] LABS: TOTAL 25(OH) VITAMIN D 25.6 NG/ML (30.0-100.0)
== END ==
LOC: M LAB 10:00
PROVIDERS: ATTEND Family Medicine
DX: R35.0 Frequency of micturition (principal); R53.83 Other fatigue; R60.0 Localized edema; Z79.899 Other long term (current) drug therapy

== ENCOUNTER → 2021-02-13 | Outpatient (REF) | payer MEDICARE, OTHER ==
[2021-02-13 12:55] LABS: APPEARANCE, URINE HAZY (CLEAR); BACTERIA, URINE AUTO 1+ (NEGATIVE); BILIRUBIN, URINE AUTO NEGATIVE (NEGATIVE); BLOOD, URINE BLOOD 1+ (NEGATIVE); COLOR, URINE STRAW (YELLOW); GLUCOSE, URINE (UA) AUTO NEGATIVE (NEGATIVE); KETONE, URINE AUTO NEGATIVE (NEGATIVE); LEUKOCYTE ESTERASE, URINE AUTO 3+ (NEGATIVE); NITRITE, URINE AUTO POSITIVE (NEGATIVE); PROTEIN, URINE AUTO NEGATIVE (NEGATIVE); RBC, URINE AUTO 3 /HPF (0-3); SPECIFIC GRAVITY URINE AUTO 1.005 (1.002-1.035); SQUAMOUS EPITHELIAL CELL UR AU 1 /HPF (0-6); UROBILINOGEN, URINE AUTO 0.2 mg/dL (0.0-2.0); WBC, URINE AUTO 148 /HPF (0-3)
== END ==
LOC: M LAB REF 11:04
PROVIDERS: ATTEND Physician Assistant
DX: N39.0 Urinary tract infection, site not specified (principal)

== ENCOUNTER → 2021-03-25 | Outpatient (CLI) | payer MEDICARE, OTHER ==
[2021-03-25 13:48] LABS: AMPHETAMINES URINE REFLEX NEGATIVE (NEGATIVE); BARBITURATES URINE REFLEX NEGATIVE (NEGATIVE); BENZODIAZEPINES URINE REFLEX NEGATIVE (NEGATIVE); CANNABINOIDS URINE REFLEX NEGATIVE (NEGATIVE); COCAINE METABOLITE URINE REFLE NEGATIVE (NEGATIVE); METHADONE URINE REFLEX NEGATIVE (NEGATIVE); PHENCYCLIDINE URINE REFLEX NEGATIVE (NEGATIVE)
[2021-03-25 14:17] LABS: OPIATES URINE REFLEX PENDING CONFIRMATION (NEGATIVE)
== END ==
LOC: M LAB 12:44
PROVIDERS: ATTEND Physical Medicine & Rehabilitation
DX: M48.061 Spinal stenosis, lumbar region without neurogenic claudication (principal)
CPT/HCPCS: 36415; 80307; G0480

== ENCOUNTER → 2021-05-12 | Outpatient (CLI) | payer MEDICARE, OTHER ==
[~2021-05-12] MED LIST changes: -KLOR10TA76 PO; +POTA-136 PO
[2021-05-12 12:49] LABS: APPEARANCE, URINE HAZY (CLEAR); BACTERIA, URINE AUTO 1+ (NEGATIVE); BILIRUBIN, URINE AUTO NEGATIVE (NEGATIVE); BLOOD, URINE BLOOD NEGATIVE (NEGATIVE); COLOR, URINE YELLOW (YELLOW); GLUCOSE, URINE (UA) AUTO NEGATIVE (NEGATIVE); KETONE, URINE AUTO NEGATIVE (NEGATIVE); LEUKOCYTE ESTERASE, URINE AUTO 2+ (NEGATIVE); MUCUS, URINE SMALL (NEGATIVE); NITRITE, URINE AUTO POSITIVE (NEGATIVE); PROTEIN, URINE AUTO NEGATIVE (NEGATIVE); RBC, URINE AUTO 1 /HPF (0-3); SPECIFIC GRAVITY URINE AUTO 1.015 (1.002-1.035); SQUAMOUS EPITHELIAL CELL UR AU 1 /HPF (0-6); UROBILINOGEN, URINE AUTO 0.2 mg/dL (0.0-2.0); WBC, URINE AUTO 23 /HPF (0-3)
[2021-05-12 12:49] LABS: BASO # 0.1 10^3/uL (0.0-0.2); BASO % 0.7 % (0.0-1.0); EOS # 0.2 10^3/uL (0.0-0.5); EOS % 1.7 % (0.0-3.0); HEMATOCRIT 45.1 % (36.0-47.0); LYMPH # 1.6 10^3/uL (1.5-5.0); LYMPH % 17.3 % (24.0-44.0); MEAN CORPUSCULAR HEMOGLOBIN 29.3 pg (27.0-33.0); MEAN CORPUSCULAR VOLUME 94.4 fl (80.0-96.0); MONO # 0.7 10^3/uL (0.0-0.8); MONO % 7.6 % (2.0-8.0); NEUTROPHILS # 6.5 10^3/uL (1.5-8.5); NEUTROPHILS % 72.4 % (36.0-66.0); PLATELET COUNT, AUTOMATED 257 10^3/uL (150-450); RED BLOOD COUNT 4.78 10^6/uL (4.00-5.40)
[2021-05-12 14:10] LABS: BILIRUBIN,TOTAL 0.5 MG/DL (0.2-1.0); CALCIUM LEVEL 9.2 MG/DL (8.8-10.2); CHOLESTEROL RISK RATIO 3.309 (<5); CREATININE FOR GFR 1.06 MG/DL (0.55-1.30); FREE T4 1.08 NG/DL (0.76-1.46); GLOMERULAR FILTRATION RATE 53.1 (>32); MAGNESIUM LEVEL 1.8 MG/DL (1.8-2.4); POTASSIUM SERUM 4.1 MEQ/L (3.5-5.1); THYROID STIMULATING HORMONE 0.749 uIU/ML (0.358-3.740); TOTAL PROTEIN 5.9 GM/DL (6.4-8.2)
[2021-05-12 14:12] LABS: TOTAL 25(OH) VITAMIN D 27.6 NG/ML (30.0-100.0)
== END ==
LOC: M LAB 10:49
PROVIDERS: ATTEND Family Medicine
DX: R35.0 Frequency of micturition (principal); R53.83 Other fatigue; R60.0 Localized edema; E03.9 Hypothyroidism, unspecified; I10 Essential (primary) hypertension

== ENCOUNTER → 2021-06-30 | Outpatient (REF) | payer MEDICARE, OTHER | LOC: M LAB REF 14:32 | PROVIDERS: ATTEND Physician Assistant | DX: N39.0 Urinary tract infection, site not specified (principal); R82.998 Other abnormal findings in urine ==

== ENCOUNTER → 2021-08-11 | Outpatient (REF) | LOC: M LABSMTC 11:30 | PROVIDERS: ATTEND Pediatrics | DX: Z20.822 Contact with and (suspected) exposure to COVID-19 (principal) ==

== ENCOUNTER → 2021-08-21 | Outpatient (REF) | payer MEDICARE, OTHER ==
[2021-08-21 11:36] LABS: APPEARANCE, URINE CLEAR (CLEAR); BACTERIA, URINE AUTO NEGATIVE (NEGATIVE); BILIRUBIN, URINE AUTO NEGATIVE (NEGATIVE); BLOOD, URINE BLOOD NEGATIVE (NEGATIVE); COLOR, URINE COLORLESS (YELLOW); GLUCOSE, URINE (UA) AUTO NEGATIVE (NEGATIVE); KETONE, URINE AUTO NEGATIVE (NEGATIVE); LEUKOCYTE ESTERASE, URINE AUTO NEGATIVE (NEGATIVE); NITRITE, URINE AUTO NEGATIVE (NEGATIVE); PROTEIN, URINE AUTO NEGATIVE (NEGATIVE); RBC, URINE AUTO 0 /HPF (0-3); SPECIFIC GRAVITY URINE AUTO 1.004 (1.002-1.035); SQUAMOUS EPITHELIAL CELL UR AU 0 /HPF (0-6); UROBILINOGEN, URINE AUTO 0.2 mg/dL (0.0-2.0); WBC, URINE AUTO 0 /HPF (0-3)
== END ==
LOC: M LAB REF 10:48
PROVIDERS: ATTEND Physician Assistant
DX: N39.0 Urinary tract infection, site not specified (principal)

== ENCOUNTER → 2021-10-29 | Outpatient (CLI) | payer MEDICARE, OTHER | LOC: M WHC 12:25 | PROVIDERS: ATTEND Family Medicine | DX: Z12.31 Encounter for screening mammogram for malignant neoplasm of breast (principal); Z80.42 Family history of malignant neoplasm of prostate; Z80.0 Family history of malignant neoplasm of digestive organs ==

== ENCOUNTER → 2022-02-24 | Outpatient (REF) | payer MEDICARE, OTHER ==
[2022-02-24 14:05] LABS: APPEARANCE, URINE CLEAR (CLEAR); BACTERIA, URINE AUTO NEGATIVE (NEGATIVE); BILIRUBIN, URINE AUTO NEGATIVE (NEGATIVE); BLOOD, URINE BLOOD NEGATIVE (NEGATIVE); CALCIUM OXALATE CRYSTALS SMALL; COLOR, URINE STRAW (YELLOW); GLUCOSE, URINE (UA) AUTO NEGATIVE (NEGATIVE); KETONE, URINE AUTO NEGATIVE (NEGATIVE); LEUKOCYTE ESTERASE, URINE AUTO NEGATIVE (NEGATIVE); MUCUS, URINE SMALL (NEGATIVE); NITRITE, URINE AUTO NEGATIVE (NEGATIVE); PROTEIN, URINE AUTO NEGATIVE (NEGATIVE); RBC, URINE AUTO 0 /HPF (0-3); SQUAMOUS EPITHELIAL CELL UR AU 0 /HPF (0-6); UROBILINOGEN, URINE AUTO 0.2 mg/dL (0.0-2.0); WBC, URINE AUTO 2 /HPF (0-3)
== END ==
LOC: M LAB REF 13:38
PROVIDERS: ATTEND Physician Assistant
DX: N39.0 Urinary tract infection, site not specified (principal)

== ENCOUNTER → 2022-03-17 | Outpatient (REF) | payer MEDICARE, OTHER ==
[2022-03-17 16:42] LABS: APPEARANCE, URINE MANUAL HAZY (CLEAR); COLOR, URINE MANUAL YELLOW (YELLOW)
[2022-03-17 16:43] LABS: GLUCOSE, URINE (UA) MANUAL NEGATIVE (NEGATIVE); KETONE, URINE MANUAL NEGATIVE (NEGATIVE); PROTEIN, URINE MANUAL 1+ mg/dL (NEGATIVE); SPECIFIC GRAVITY,URINE MANUAL 1.015 (1.002-1.035)
[2022-03-17 16:44] LABS: BILIRUBIN, URINE MANUAL NEGATIVE (NEGATIVE); BLOOD URINE MANUAL POSITIVE (NEGATIVE); LEUKOCYTE ESTERASE, URINE MAN POSITIVE (NEGATIVE); NITRITE, URINE MANUAL POSITIVE (NEGATIVE); UROBILINOGEN, URINE MANUAL NORMAL (NORMAL)
[2022-03-17 16:55] LABS: BACTERIA, URINE MOD AMOUNT; HYALINE CAST, URINE NONE SEEN /lpf (0-1); RBC, URINE NONE SEEN /hpf (0-3); SQUAMOUS EPITHELIAL CELL URINE MOD AMOUNT /hpf (SMALL AMT); WBC, URINE TNTC /hpf (0-3)
== END ==
LOC: M LAB REF 16:22
PROVIDERS: ATTEND Physician Assistant
DX: N39.0 Urinary tract infection, site not specified (principal)

== ENCOUNTER → 2022-03-30 | Outpatient (REF) | payer MEDICARE, OTHER ==
[2022-03-30 12:25] LABS: APPEARANCE, URINE MANUAL TURBID (CLEAR); COLOR, URINE MANUAL LT YELLOW (YELLOW)
[2022-03-30 12:28] LABS: GLUCOSE, URINE (UA) MANUAL NEGATIVE (NEGATIVE); KETONE, URINE MANUAL NEGATIVE (NEGATIVE); PROTEIN, URINE MANUAL NEGATIVE (NEGATIVE); SPECIFIC GRAVITY,URINE MANUAL 1.015 (1.002-1.035); UROBILINOGEN, URINE MANUAL NORMAL (NORMAL)
[2022-03-30 12:29] LABS: BILIRUBIN, URINE MANUAL NEGATIVE (NEGATIVE); BLOOD URINE MANUAL POSITIVE (NEGATIVE); LEUKOCYTE ESTERASE, URINE MAN POSITIVE (NEGATIVE); NITRITE, URINE MANUAL NEGATIVE (NEGATIVE)
[2022-03-30 12:42] LABS: SQUAMOUS EPITHELIAL CELL URINE SMALL AMOUNT /hpf (SMALL AMT); WBC, URINE TNTC /hpf (0-3)
[2022-03-30 12:43] LABS: BACTERIA, URINE LARGE AMOUNT; HYALINE CAST, URINE NONE SEEN /lpf (0-1)
== END ==
LOC: M LAB REF 11:36
PROVIDERS: ATTEND Physician Assistant
DX: N39.0 Urinary tract infection, site not specified (principal)

== ENCOUNTER → 2022-07-15 | Outpatient (REF) | payer MEDICARE, OTHER ==
[2022-07-15 16:35] LABS: APPEARANCE, URINE MANUAL CLOUDY (CLEAR); COLOR, URINE MANUAL LT YELLOW (YELLOW)
[2022-07-15 16:36] LABS: BILIRUBIN, URINE MANUAL NEGATIVE (NEGATIVE); BLOOD URINE MANUAL TRACE (NEGATIVE); GLUCOSE, URINE (UA) MANUAL NEGATIVE (NEGATIVE); KETONE, URINE MANUAL NEGATIVE (NEGATIVE); LEUKOCYTE ESTERASE, URINE MAN POSITIVE (NEGATIVE); NITRITE, URINE MANUAL POSITIVE (NEGATIVE); PROTEIN, URINE MANUAL TRACE mg/dL (NEGATIVE); SPECIFIC GRAVITY,URINE MANUAL 1.015 (1.002-1.035); UROBILINOGEN, URINE MANUAL NORMAL (NORMAL)
[2022-07-15 17:01] LABS: WBC, URINE TNTC /hpf (0-3)
[2022-07-15 17:02] LABS: SQUAMOUS EPITHELIAL CELL URINE SMALL AMOUNT /hpf (SMALL AMT)
[2022-07-15 17:03] LABS: BACTERIA, URINE LARGE AMOUNT; HYALINE CAST, URINE NONE SEEN /lpf (0-1); RBC, URINE 40-50 /hpf (0-3); TRANSITIONAL EPI CELLS, URINE SMALL AMOUNT /hpf
== END ==
LOC: M LAB REF 16:21
PROVIDERS: ATTEND Physician Assistant
DX: N39.0 Urinary tract infection, site not specified (principal)

== ENCOUNTER → 2022-07-16 | Outpatient (REF) | payer MEDICARE, OTHER | LOC: M LAB REF 14:40 | PROVIDERS: ATTEND Physical Medicine & Rehabilitation | DX: M51.16 Intervertebral disc disorders with radiculopathy, lumbar region (principal); M48.061 Spinal stenosis, lumbar region without neurogenic claudication; M51.17 Intervertebral disc disorders with radiculopathy, lumbosacral region ==

== ENCOUNTER → 2022-10-30 | Outpatient (CLI) | payer MEDICARE, OTHER | LOC: M WHC 10:14 | PROVIDERS: ATTEND Family Medicine | DX: Z12.31 Encounter for screening mammogram for malignant neoplasm of breast (principal) ==

== ENCOUNTER 2023-02-16 14:47 | Emergency (ER) | payer MEDICARE, OTHER ==
[~2023-02-16] VITALS: Ht 167.6 cm; Wt 74.5 kg
[~2023-02-16 14:47] MED LIST changes: -K-TA10TA2 PO; +POTA-165 PO
[2023-02-16 15:32] LABS: BASO % 0.4 % (0.0-1.0); EOS # 0.1 10^3/uL (0.0-0.5); EOS % 0.8 % (0.0-3.0); HEMATOCRIT 44.7 % (36.0-47.0); HEMOGLOBIN 14.2 g/dl (12.0-15.5); LYMPH # 1.3 10^3/uL (1.5-5.0); LYMPH % 17.8 % (24.0-44.0); MEAN CORPUSCULAR HEMOGLOBIN 29.5 pg (27.0-33.0); MEAN CORPUSCULAR HGB CONC 31.8 g/dl (32.0-36.5); MEAN CORPUSCULAR VOLUME 92.7 fl (80.0-96.0); MONO # 0.5 10^3/uL (0.0-0.8); MONO % 6.6 % (2.0-8.0); NEUTROPHILS # 5.4 10^3/uL (1.5-8.5); NEUTROPHILS % 74.1 % (36.0-66.0); PLATELET COUNT, AUTOMATED 289 10^3/uL (150-450); RED BLOOD COUNT 4.82 10^6/uL (4.00-5.40); WHITE BLOOD COUNT 7.3 10^3/uL (4.0-10.0)
[2023-02-16 15:56] LABS: CK-MB VALUE MASS 1.3 NG/ML (<3.6)
[2023-02-16 15:58] LABS: ALBUMIN 3.5 G/DL (3.2-5.2); BILIRUBIN,DIRECT 0.2 MG/DL (<0.4); BILIRUBIN,TOTAL 0.8 MG/DL (0.3-1.2); CALCIUM LEVEL 9.2 MG/DL (8.3-10.6); CREATININE FOR GFR 0.96 MG/DL (0.55-1.30); GLOMERULAR FILTRATION RATE 59.4 (>32); POTASSIUM SERUM 3.4 MMOL/L (3.5-5.1); TOTAL PROTEIN 6.4 G/DL (5.7-8.2)
[2023-02-16 16:02] LABS: MB/CK RELATIVE INDEX 2.6 (< OR =4)
[2023-02-16 17:03] LABS: CK-MB VALUE MASS < 1.0 NG/ML (<3.6)
[2023-02-16 17:17] LABS: CPK CREATINE PHOSPHOKINASE 35 U/L (34-145); MB/CK RELATIVE INDEX 2.85 (< OR =4)
[2023-02-16] MEDS ORDERED: POTASSIUM CHLORIDE 10MEQ SR TABLET PO ONE (19:00)
[2023-02-16] MEDS ORDERED: ACETAMINOPHEN TAB 650MG DOSE (2X325MG) PO ONE (19:45)
[2023-02-16] MEDS ORDERED: ONDANSETRON 4MG ORAL DISINTEGRATING TAB PO ONE (19:45)
[2023-02-16] MEDS ORDERED: VANCOMYCIN ORAL SOL 250MG/5ML ORAL SYRINGE PO STA (20:53)
[2023-02-16] MEDS ORDERED: VANC1CAP6 PO (20:59)
[2023-02-16] MEDS ORDERED: ONDA4TAB6 PO (21:00)
[2023-02-16 21:08] VITALS: O2SAT 97
[2023-02-16 21:44] VITALS: BP 162/77; TEMP 97.1; O2SAT 96
== END 2023-02-16 21:52 | disposition home or self-care (01) ==
LOC: EDBD 14:47 → M ED 14:47
DX: A04.72 Enterocolitis due to Clostridium difficile, not specified as recurrent (principal); R53.1 Weakness; I10 Essential (primary) hypertension; E78.5 Hyperlipidemia, unspecified; G89.29 Other chronic pain; M54.50 Low back pain, unspecified; Z86.711 Personal history of pulmonary embolism; Z86.718 Personal history of other venous thrombosis and embolism; Z79.899 Other long term (current) drug therapy

== ENCOUNTER → 2023-04-08 | Outpatient (REF) | payer MEDICARE, OTHER ==
[~2023-04-08] MED LIST changes: +MECL-209 PO; -MECL1TAB31 PO; +ONDA4TAB6 PO; +VANC1CAP6 PO
[2023-04-08 18:23] LABS: APPEARANCE, URINE HAZY (CLEAR); BACTERIA, URINE AUTO 2+ (NEGATIVE); BILIRUBIN, URINE AUTO NEGATIVE (NEGATIVE); BLOOD, URINE BLOOD 1+ (NEGATIVE); COLOR, URINE YELLOW (YELLOW); GLUCOSE, URINE (UA) AUTO NEGATIVE (NEGATIVE); KETONE, URINE AUTO NEGATIVE (NEGATIVE); LEUKOCYTE ESTERASE, URINE AUTO 3+ (NEGATIVE); MUCUS, URINE SMALL (NEGATIVE); NITRITE, URINE AUTO POSITIVE (NEGATIVE); PROTEIN, URINE AUTO NEGATIVE (NEGATIVE); RBC, URINE AUTO 2 /HPF (0-3); SPECIFIC GRAVITY URINE AUTO 1.008 (1.002-1.035); SQUAMOUS EPITHELIAL CELL UR AU 0 /HPF (0-6); UROBILINOGEN, URINE AUTO 0.2 mg/dL (0.0-2.0); WBC, URINE AUTO 114 /HPF (0-3)
== END ==
LOC: M LAB REF 15:15
PROVIDERS: ATTEND Physician Assistant
DX: R30.0 Dysuria (principal)

== ENCOUNTER 2023-04-15 00:35 | Inpatient (IN) | payer MEDICARE, OTHER ==
[~2023-04-15] VITALS: Ht 167.6 cm; Wt 80.8 kg
[2023-04-15 01:56] LABS: INR 2.74; PARTIAL THROMBOPLASTIN TIME 32.7 SECONDS (24.8-34.2); PROTHROMBIN TIME 28.3 SECONDS (12.5-14.5)
[2023-04-15 01:58] LABS: BASO % 0.1 % (0.0-1.0); EOS # 0.1 10^3/uL (0.0-0.5); EOS % 0.7 % (0.0-3.0); HEMATOCRIT 42.8 % (36.0-47.0); HEMOGLOBIN 13.8 g/dl (12.0-15.5); LYMPH # 0.2 10^3/uL (1.5-5.0); LYMPH % 2.3 % (24.0-44.0); MEAN CORPUSCULAR HEMOGLOBIN 30.1 pg (27.0-33.0); MEAN CORPUSCULAR HGB CONC 32.2 g/dl (32.0-36.5); MEAN CORPUSCULAR VOLUME 93.4 fl (80.0-96.0); MONO # 0.4 10^3/uL (0.0-0.8); MONO % 3.6 % (2.0-8.0); NEUTROPHILS # 9.8 10^3/uL (1.5-8.5); PLATELET COUNT, AUTOMATED 190 10^3/uL (150-450); RED BLOOD COUNT 4.58 10^6/uL (4.00-5.40); WHITE BLOOD COUNT 10.6 10^3/uL (4.0-10.0)
[2023-04-15 01:59] LABS: LIPASE 28 U/L (12-53)
[2023-04-15 02:00] LABS: CK-MB VALUE MASS < 1.0 NG/ML (<3.6)
[2023-04-15 02:01] LABS: ALBUMIN 3.4 G/DL (3.2-5.2); ALKALINE PHOSPHATASE 109 U/L (46-116); ALT/SGPT 17 U/L (7.0-40); AST/SGOT 18 U/L (<34); BILIRUBIN,DIRECT 0.3 MG/DL (<0.4); BILIRUBIN,TOTAL 0.8 MG/DL (0.3-1.2); BLOOD UREA NITROGEN 12 MG/DL (9-23); CALCIUM LEVEL 8.9 MG/DL (8.3-10.6); CARBON DIOXIDE LEVEL 30 MMOL/L (20-31); CHLORIDE LEVEL 103 MMOL/L (98-107); CPK CREATINE PHOSPHOKINASE 26 U/L (34-145); CREATININE FOR GFR 1.03 MG/DL (0.55-1.30); GLOMERULAR FILTRATION RATE 54.7 (>32); GLUCOSE, FASTING 141 MG/DL (74-106); MB/CK RELATIVE INDEX 3.84 (< OR =4); SODIUM LEVEL 139 MMOL/L (136-145); TOTAL PROTEIN 6.1 G/DL (5.7-8.2)
[2023-04-15 02:12] LABS: RSV AMPLIFICATION NEGATIVE (NEGATIVE)
[2023-04-15] MEDS ORDERED: METHOCARBAMOL 1,000 MG/10 ML VIAL IV ONE (03:10)
[2023-04-15] MEDS ORDERED: KETOROLAC 30 MG/ML 1ML VIAL IV ONE (03:10)
[2023-04-15] MEDS ORDERED: ISOVUE-370 76% 100ML VIAL As Ordered ONE (03:34)
[2023-04-15 04:03] LABS: CK-MB VALUE MASS < 1.0 NG/ML (<3.6)
[2023-04-15 04:05] LABS: CPK CREATINE PHOSPHOKINASE 27 U/L (34-145)
[2023-04-15] MEDS ORDERED: ONDANSETRON 4MG 2ML VIAL IV ONE (05:30)
[2023-04-15] MEDS: MORPHINE 4 MG/ML 1ML VIAL IV PRN ×2 (05:38→13:00)
[2023-04-15] MEDS ORDERED: LEVOTHYROXINE 75MCG TABLET (0.075MG) PO SCH (06:00)
[2023-04-15] MEDS ORDERED: CEFEPIME HCL 2 GM in D5W MINI-BAG PLUS 50 ML IV ONE (07:05)
[2023-04-15] MEDS ORDERED: MAALOX 30 ML SUSP *UDC PO PRN (07:55)
[2023-04-15] MEDS ORDERED: MOM 30ML SUSPENSION UDC PO PRN (07:55)
[2023-04-15] MEDS: RIVAROXABAN 20MG TAB (XARELTO) PO SCH (08:00)
[2023-04-15] MEDS ORDERED: MED REC IN PROGRESS XX SCH (08:25)
[2023-04-15] MEDS: ESCITALOPRAM OXALATE 10 MG TAB (LEXAPRO) PO SCH (09:00)
[2023-04-15] MEDS: ATORVASTATIN 20 MG TAB PO SCH (09:00)
[2023-04-15] MEDS ORDERED: ENOXAPARIN 40MG/0.4ML SYRINGE (J1650 PER 10MG) SC SCH (09:00)
[2023-04-15] MEDS ORDERED: PIPERACILLIN/TAZOBACTAM SOD 2.25 GM in D5W MINI-BAG PLUS 50 ML IV SCH (09:15)
[2023-04-15 09:46] LABS: C REACTIVE PROTEIN QUANTITATIV 2.1 MG/DL (<1.0); MAGNESIUM LEVEL 1.4 MG/DL (1.8-2.4)
[2023-04-15] MEDS ORDERED: MED REC CURRENTLY UNOBTAINABLE XX SCH (10:05)
[2023-04-15] MEDS ORDERED: METO25TA4 PO (10:45)
[2023-04-15] MEDS ORDERED: ERGO500029 PO (10:45)
[2023-04-15] MEDS ORDERED: ONDA4TAB6 PO (10:45)
[2023-04-15] MEDS ORDERED: PANT40TA29 PO (10:45)
[2023-04-15] MEDS ORDERED: LEVO75TA4 PO (10:45)
[2023-04-15] MEDS ORDERED: XARE20TA PO (10:45)
[2023-04-15] MEDS ORDERED: ACET300T52 PO (10:47)
[2023-04-15] MEDS ORDERED: FURO20TA2 PO (10:48)
[2023-04-15] MEDS ORDERED: HOME MED LIST COMPLETE! XX SCH (10:50)
[2023-04-15] MEDS: PIPERACILLIN/TAZOBACTAM SOD 3.375 GM in D5W MINI-BAG PLUS 50 ML IV SCH ×3 (11:30→21:44)
[2023-04-15] MEDS ORDERED: FUROSEMIDE 20 MG TAB PO PRN (14:05)
[2023-04-15] MEDS: ONDANSETRON 4MG ORAL DISINTEGRATING TAB PO PRN (19:20)
[2023-04-15 20:37] VITALS: BP 124/57; TEMP 98.1; O2SAT 94
[2023-04-15] MEDS: METOPROLOL TART 25 MG TABLET PO SCH (21:38)
[2023-04-15] MEDS: PANTOPRAZOLE 40MG TAB (PROTONIX) PO SCH (21:38)
[2023-04-15] MEDS: KETOROLAC 30 MG/ML 1ML VIAL IV PRN (21:38)
[2023-04-16] MEDS: PIPERACILLIN/TAZOBACTAM SOD 3.375 GM in D5W MINI-BAG PLUS 50 ML IV SCH ×2 (04:40→09:33)
[2023-04-16] MEDS: KETOROLAC 30 MG/ML 1ML VIAL IV PRN (04:43)
[2023-04-16 05:35] VITALS: BP 107/53; TEMP 97; O2SAT 91
[2023-04-16] MEDS: LEVOTHYROXINE 75MCG TABLET (0.075MG) PO SCH (05:44)
[2023-04-16 06:22] LABS: BASO % 0.4 % (0.0-1.0); EOS # 0.3 10^3/uL (0.0-0.5); HEMATOCRIT 39.6 % (36.0-47.0); HEMOGLOBIN 12.7 g/dl (12.0-15.5); LYMPH # 0.6 10^3/uL (1.5-5.0); LYMPH % 11.8 % (24.0-44.0); MEAN CORPUSCULAR HEMOGLOBIN 30.5 pg (27.0-33.0); MEAN CORPUSCULAR HGB CONC 32.1 g/dl (32.0-36.5); MONO # 0.4 10^3/uL (0.0-0.8); MONO % 8.7 % (2.0-8.0); NEUTROPHILS # 3.5 10^3/uL (1.5-8.5); NEUTROPHILS % 72.7 % (36.0-66.0); PLATELET COUNT, AUTOMATED 162 10^3/uL (150-450); RED BLOOD COUNT 4.17 10^6/uL (4.00-5.40); WHITE BLOOD COUNT 4.9 10^3/uL (4.0-10.0)
[2023-04-16 07:19] LABS: CALCIUM LEVEL 8.5 MG/DL (8.3-10.6); CREATININE FOR GFR 1.44 MG/DL (0.55-1.30); GLOMERULAR FILTRATION RATE 37.2 (>32); MAGNESIUM LEVEL 1.5 MG/DL (1.8-2.4); POTASSIUM SERUM 3.9 MMOL/L (3.5-5.1)
[2023-04-16] MEDS ORDERED: ENOXAPARIN 40MG/0.4ML SYRINGE (J1650 PER 10MG) SC SCH (09:00)
[2023-04-16] MEDS: METOPROLOL TART 25 MG TABLET PO SCH ×2 (09:00→20:27)
[2023-04-16] MEDS: ESCITALOPRAM OXALATE 10 MG TAB (LEXAPRO) PO SCH (09:33)
[2023-04-16] MEDS: PANTOPRAZOLE 40MG TAB (PROTONIX) PO SCH ×2 (09:35→20:22)
[2023-04-16] MEDS: RIVAROXABAN 20MG TAB (XARELTO) PO SCH (09:35)
[2023-04-16] MEDS: ATORVASTATIN 20 MG TAB PO SCH (09:35)
[2023-04-16 09:41] VITALS: BP 145/65
[2023-04-16 14:45] VITALS: BP 140/65; TEMP 97.2; O2SAT 95
[2023-04-16] MEDS: PERCOCET 5MG/325MG TAB PO PRN (16:40)
[2023-04-16] MEDS: PIPERACILLIN/TAZOBACTAM SOD 2.25 GM in D5W MINI-BAG PLUS 50 ML IV SCH ×2 (16:40→22:05)
[2023-04-16 22:00] VITALS: BP 127/58; TEMP 97.7; O2SAT 95
[2023-04-17] MEDS: PIPERACILLIN/TAZOBACTAM SOD 2.25 GM in D5W MINI-BAG PLUS 50 ML IV SCH ×4 (04:26→21:05)
[2023-04-17 06:00] VITALS: BP 118/56; TEMP 96.9; O2SAT 98
[2023-04-17] MEDS: LEVOTHYROXINE 75MCG TABLET (0.075MG) PO SCH (06:01)
[2023-04-17 08:07] LABS: BASO % 0.3 % (0.0-1.0); EOS # 0.3 10^3/uL (0.0-0.5); EOS % 4.4 % (0.0-3.0); HEMATOCRIT 39.6 % (36.0-47.0); HEMOGLOBIN 12.5 g/dl (12.0-15.5); LYMPH # 0.8 10^3/uL (1.5-5.0); LYMPH % 13.5 % (24.0-44.0); MEAN CORPUSCULAR HEMOGLOBIN 29.9 pg (27.0-33.0); MEAN CORPUSCULAR HGB CONC 31.6 g/dl (32.0-36.5); MEAN CORPUSCULAR VOLUME 94.7 fl (80.0-96.0); MONO # 0.5 10^3/uL (0.0-0.8); MONO % 8.6 % (2.0-8.0); NEUTROPHILS # 4.2 10^3/uL (1.5-8.5); NEUTROPHILS % 72.7 % (36.0-66.0); PLATELET COUNT, AUTOMATED 171 10^3/uL (150-450); RED BLOOD COUNT 4.18 10^6/uL (4.00-5.40); WHITE BLOOD COUNT 5.7 10^3/uL (4.0-10.0)
[2023-04-17 08:26] LABS: CALCIUM LEVEL 8.5 MG/DL (8.3-10.6); CREATININE FOR GFR 1.23 MG/DL (0.55-1.30); GLOMERULAR FILTRATION RATE 44.6 (>32); MAGNESIUM LEVEL 1.5 MG/DL (1.8-2.4); POTASSIUM SERUM 4.1 MMOL/L (3.5-5.1)
[2023-04-17] MEDS ORDERED: NS 500 ML IV ONE (08:30)
[2023-04-17] MEDS: RIVAROXABAN 20MG TAB (XARELTO) PO SCH (09:03)
[2023-04-17] MEDS: METOPROLOL TART 25 MG TABLET PO SCH ×2 (09:03→21:00)
[2023-04-17] MEDS: ESCITALOPRAM OXALATE 10 MG TAB (LEXAPRO) PO SCH (09:04)
[2023-04-17] MEDS: ATORVASTATIN 20 MG TAB PO SCH (09:04)
[2023-04-17] MEDS: PANTOPRAZOLE 40MG TAB (PROTONIX) PO SCH ×2 (09:04→21:08)
[2023-04-17] MEDS: KETOROLAC 30 MG/ML 1ML VIAL IV PRN (09:08)
[2023-04-17] MEDS: PERCOCET 5MG/325MG TAB PO PRN ×2 (14:46→21:05)
[2023-04-17] MEDS: ONDANSETRON 4MG ORAL DISINTEGRATING TAB PO PRN (14:47)
[2023-04-17 14:50] VITALS: BP 132/62; TEMP 96.9; O2SAT 94
[2023-04-17] MEDS: MAG SULF 1GM/100ML (MAG RUN) 1 GM in IV 1 EA IV SCH ×2 (18:20→19:40)
[2023-04-17] MEDS: ACETAMINOPHEN TAB 650MG DOSE (2X325MG) PO PRN (19:42)
[2023-04-17 22:00] VITALS: BP 148/65; TEMP 97.2; O2SAT 95
[2023-04-18] MEDS: PIPERACILLIN/TAZOBACTAM SOD 2.25 GM in D5W MINI-BAG PLUS 50 ML IV SCH ×4 (04:26→22:11)
[2023-04-18 06:00] VITALS: BP 123/58; TEMP 96.6; O2SAT 97
[2023-04-18] MEDS: LEVOTHYROXINE 75MCG TABLET (0.075MG) PO SCH (06:11)
[2023-04-18 08:08] LABS: BASO % 0.5 % (0.0-1.0); EOS # 0.2 10^3/uL (0.0-0.5); EOS % 5.2 % (0.0-3.0); HEMATOCRIT 38.9 % (36.0-47.0); HEMOGLOBIN 12.3 g/dl (12.0-15.5); LYMPH # 1.1 10^3/uL (1.5-5.0); LYMPH % 25.2 % (24.0-44.0); MEAN CORPUSCULAR HGB CONC 31.6 g/dl (32.0-36.5); MEAN CORPUSCULAR VOLUME 94.9 fl (80.0-96.0); MONO # 0.4 10^3/uL (0.0-0.8); MONO % 10.1 % (2.0-8.0); NEUTROPHILS # 2.5 10^3/uL (1.5-8.5); NEUTROPHILS % 58.8 % (36.0-66.0); PLATELET COUNT, AUTOMATED 185 10^3/uL (150-450); WHITE BLOOD COUNT 4.2 10^3/uL (4.0-10.0)
[2023-04-18 08:31] LABS: CALCIUM LEVEL 8.1 MG/DL (8.3-10.6); CREATININE FOR GFR 1.05 MG/DL (0.55-1.30); GLOMERULAR FILTRATION RATE 53.5 (>32); MAGNESIUM LEVEL 1.9 MG/DL (1.8-2.4); POTASSIUM SERUM 3.5 MMOL/L (3.5-5.1)
[2023-04-18] MEDS: METOPROLOL TART 25 MG TABLET PO SCH ×2 (09:22→20:21)
[2023-04-18] MEDS: PANTOPRAZOLE 40MG TAB (PROTONIX) PO SCH ×2 (09:29→20:21)
[2023-04-18] MEDS: ATORVASTATIN 20 MG TAB PO SCH (09:29)
[2023-04-18] MEDS: ESCITALOPRAM OXALATE 10 MG TAB (LEXAPRO) PO SCH (09:29)
[2023-04-18] MEDS: ONDANSETRON 4MG ORAL DISINTEGRATING TAB PO PRN (09:30)
[2023-04-18] MEDS: RIVAROXABAN 20MG TAB (XARELTO) PO SCH (09:30)
[2023-04-18] MEDS: PERCOCET 5MG/325MG TAB PO PRN (09:31)
[2023-04-18 14:16] VITALS: BP 150/68; TEMP 97; O2SAT 96
[2023-04-18] MEDS: ACETAMINOPHEN TAB 650MG DOSE (2X325MG) PO PRN (17:02)
[2023-04-18] MEDS: VANCOMYCIN ORAL SOL 250MG/5ML ORAL SYRINGE PO SCH ×2 (20:20→23:54)
[2023-04-18 22:00] VITALS: BP 159/71; TEMP 97.3; O2SAT 98
[2023-04-19] MEDS: PIPERACILLIN/TAZOBACTAM SOD 2.25 GM in D5W MINI-BAG PLUS 50 ML IV SCH ×4 (04:32→20:59)
[2023-04-19] MEDS: VANCOMYCIN ORAL SOL 250MG/5ML ORAL SYRINGE PO SCH (05:31)
[2023-04-19] MEDS: LEVOTHYROXINE 75MCG TABLET (0.075MG) PO SCH (05:31)
[2023-04-19 06:00] VITALS: BP 156/68; TEMP 96.7; O2SAT 98
[2023-04-19 06:15] LABS: BASO % 0.5 % (0.0-1.0); EOS # 0.2 10^3/uL (0.0-0.5); EOS % 4.2 % (0.0-3.0); HEMATOCRIT 39.3 % (36.0-47.0); HEMOGLOBIN 12.6 g/dl (12.0-15.5); LYMPH # 1.2 10^3/uL (1.5-5.0); LYMPH % 20.2 % (24.0-44.0); MEAN CORPUSCULAR HEMOGLOBIN 30.5 pg (27.0-33.0); MEAN CORPUSCULAR HGB CONC 32.1 g/dl (32.0-36.5); MEAN CORPUSCULAR VOLUME 95.2 fl (80.0-96.0); MONO # 0.5 10^3/uL (0.0-0.8); MONO % 8.9 % (2.0-8.0); NEUTROPHILS # 3.8 10^3/uL (1.5-8.5); NEUTROPHILS % 65.8 % (36.0-66.0); PLATELET COUNT, AUTOMATED 191 10^3/uL (150-450); RED BLOOD COUNT 4.13 10^6/uL (4.00-5.40); WHITE BLOOD COUNT 5.7 10^3/uL (4.0-10.0)
[2023-04-19 06:40] LABS: CALCIUM LEVEL 8.4 MG/DL (8.3-10.6); CREATININE FOR GFR 1.07 MG/DL (0.55-1.30); GLOMERULAR FILTRATION RATE 52.4 (>32); MAGNESIUM LEVEL 1.8 MG/DL (1.8-2.4); POTASSIUM SERUM 3.5 MMOL/L (3.5-5.1)
[2023-04-19] MEDS: ESCITALOPRAM OXALATE 10 MG TAB (LEXAPRO) PO SCH (08:22)
[2023-04-19] MEDS: RIVAROXABAN 20MG TAB (XARELTO) PO SCH (08:22)
[2023-04-19] MEDS: ATORVASTATIN 20 MG TAB PO SCH (08:28)
[2023-04-19] MEDS: PANTOPRAZOLE 40MG TAB (PROTONIX) PO SCH ×2 (08:28→20:59)
[2023-04-19] MEDS: ONDANSETRON 4MG ORAL DISINTEGRATING TAB PO PRN ×2 (08:46→16:18)
[2023-04-19] MEDS: METOPROLOL TART 25 MG TABLET PO SCH ×2 (08:46→21:00)
[2023-04-19] MEDS: PERCOCET 5MG/325MG TAB PO PRN ×2 (08:46→16:19)
[2023-04-19] MEDS: FIDAXOMICIN 200 MG TAB (DIFICID) PO SCH ×2 (11:37→20:59)
[2023-04-19 13:55] VITALS: BP 156/68; TEMP 97.6; O2SAT 97
[2023-04-19 21:07] VITALS: BP 136/63; TEMP 97.9; O2SAT 95
[2023-04-20] MEDS: PIPERACILLIN/TAZOBACTAM SOD 2.25 GM in D5W MINI-BAG PLUS 50 ML IV SCH (04:58)
[2023-04-20] MEDS: LEVOTHYROXINE 75MCG TABLET (0.075MG) PO SCH (05:42)
[2023-04-20] MEDS: PERCOCET 5MG/325MG TAB PO PRN ×3 (05:43→17:25)
[2023-04-20 06:00] VITALS: BP 143/64; TEMP 98; O2SAT 96
[2023-04-20 06:04] LABS: BASO % 0.5 % (0.0-1.0); EOS # 0.3 10^3/uL (0.0-0.5); EOS % 4.3 % (0.0-3.0); HEMATOCRIT 37.6 % (36.0-47.0); LYMPH # 1.6 10^3/uL (1.5-5.0); MEAN CORPUSCULAR HGB CONC 31.9 g/dl (32.0-36.5); MONO # 0.5 10^3/uL (0.0-0.8); MONO % 8.3 % (2.0-8.0); NEUTROPHILS # 3.4 10^3/uL (1.5-8.5); NEUTROPHILS % 58.6 % (36.0-66.0); PLATELET COUNT, AUTOMATED 202 10^3/uL (150-450); WHITE BLOOD COUNT 5.8 10^3/uL (4.0-10.0)
[2023-04-20 06:32] LABS: CALCIUM LEVEL 8.4 MG/DL (8.3-10.6); GLOMERULAR FILTRATION RATE 56.6 (>32); MAGNESIUM LEVEL 1.7 MG/DL (1.8-2.4); POTASSIUM SERUM 3.6 MMOL/L (3.5-5.1)
[2023-04-20] MEDS ORDERED: FIDA200TA PO (08:59)
[2023-04-20] MEDS: FIDAXOMICIN 200 MG TAB (DIFICID) PO SCH ×2 (09:45→20:19)
[2023-04-20] MEDS: ATORVASTATIN 20 MG TAB PO SCH (09:45)
[2023-04-20] MEDS: RIVAROXABAN 20MG TAB (XARELTO) PO SCH (09:45)
[2023-04-20] MEDS: ESCITALOPRAM OXALATE 10 MG TAB (LEXAPRO) PO SCH (09:45)
[2023-04-20] MEDS: METOPROLOL TART 25 MG TABLET PO SCH ×2 (09:54→20:20)
[2023-04-20] MEDS ORDERED: MAG SULF 1GM/100ML (MAG RUN) 1 GM in IV 1 EA IV ONE (10:00)
[2023-04-20] MEDS ORDERED: DIFI200T PO (12:37)
[2023-04-20] MEDS: ONDANSETRON 4MG ORAL DISINTEGRATING TAB PO PRN (17:25)
[2023-04-20 20:00] VITALS: BP 143/69; TEMP 97.7; O2SAT 97
[2023-04-21 06:00] VITALS: BP 166/72; TEMP 98.6; O2SAT 96
[2023-04-21] MEDS: LEVOTHYROXINE 75MCG TABLET (0.075MG) PO SCH (06:10)
[2023-04-21 06:36] LABS: BASO # 0.1 10^3/uL (0.0-0.2); BASO % 0.8 % (0.0-1.0); EOS # 0.2 10^3/uL (0.0-0.5); EOS % 3.4 % (0.0-3.0); HEMATOCRIT 39.6 % (36.0-47.0); HEMOGLOBIN 12.7 g/dl (12.0-15.5); LYMPH # 1.8 10^3/uL (1.5-5.0); LYMPH % 28.3 % (24.0-44.0); MEAN CORPUSCULAR HEMOGLOBIN 30.6 pg (27.0-33.0); MEAN CORPUSCULAR HGB CONC 32.1 g/dl (32.0-36.5); MEAN CORPUSCULAR VOLUME 95.4 fl (80.0-96.0); MONO # 0.5 10^3/uL (0.0-0.8); MONO % 7.2 % (2.0-8.0); NEUTROPHILS # 3.8 10^3/uL (1.5-8.5); PLATELET COUNT, AUTOMATED 197 10^3/uL (150-450); RED BLOOD COUNT 4.15 10^6/uL (4.00-5.40); WHITE BLOOD COUNT 6.3 10^3/uL (4.0-10.0)
[2023-04-21 06:53] LABS: BLOOD UREA NITROGEN 10 MG/DL (9-23); CALCIUM LEVEL 8.4 MG/DL (8.3-10.6); CARBON DIOXIDE LEVEL 28 MMOL/L (20-31); CHLORIDE LEVEL 109 MMOL/L (98-107); CREATININE FOR GFR 0.94 MG/DL (0.55-1.30); GLOMERULAR FILTRATION RATE > 60.0 (>32); GLUCOSE, FASTING 88 MG/DL (74-106); MAGNESIUM LEVEL 1.8 MG/DL (1.8-2.4); POTASSIUM SERUM 4.5 MMOL/L (3.5-5.1); SODIUM LEVEL 141 MMOL/L (136-145)
[2023-04-21] MEDS: ONDANSETRON 4MG ORAL DISINTEGRATING TAB PO PRN (08:59)
[2023-04-21] MEDS: ATORVASTATIN 20 MG TAB PO SCH (08:59)
[2023-04-21] MEDS: RIVAROXABAN 20MG TAB (XARELTO) PO SCH (08:59)
[2023-04-21] MEDS: PERCOCET 5MG/325MG TAB PO PRN (08:59)
[2023-04-21] MEDS: ESCITALOPRAM OXALATE 10 MG TAB (LEXAPRO) PO SCH (08:59)
[2023-04-21] MEDS: FIDAXOMICIN 200 MG TAB (DIFICID) PO SCH (08:59)
[2023-04-21 09:01] VITALS: BP 158/84
[2023-04-21] MEDS: METOPROLOL TART 25 MG TABLET PO SCH (09:01)
== END 2023-04-21 12:01 | disposition home health service (06) | DRG 690 ==
LOC: M ED 00:35 → M ED INP 07:55 → ENRESERV 20:12 → M MS4PR 20:37
PROVIDERS: ADMIT Student in an Organized Health Care Education/Training Program; ATTEND Student in an Organized Health Care Education/Training Program
DX: N39.0 Urinary tract infection, site not specified (principal); A04.71 Enterocolitis due to Clostridium difficile, recurrent; N18.30 Chronic kidney disease, stage 3 unspecified; E03.9 Hypothyroidism, unspecified; G47.33 Obstructive sleep apnea (adult) (pediatric); I12.9 Hypertensive chronic kidney disease with stage 1 through stage 4 chronic kidney disease, or unspecified chronic kidney disease; M19.90 Unspecified osteoarthritis, unspecified site; M54.50 Low back pain, unspecified; G89.29 Other chronic pain; K21.9 Gastro-esophageal reflux disease without esophagitis; M48.00 Spinal stenosis, site unspecified; E78.5 Hyperlipidemia, unspecified; E55.9 Vitamin D deficiency, unspecified; Z96.641 Presence of right artificial hip joint; Z98.41 Cataract extraction status, right eye; Z98.42 Cataract extraction status, left eye; Z86.711 Personal history of pulmonary embolism; Z20.822 Contact with and (suspected) exposure to COVID-19; Z87.891 Personal history of nicotine dependence; Z79.890 Hormone replacement therapy; Z79.899 Other long term (current) drug therapy; Z88.2 Allergy status to sulfonamides; Z86.718 Personal history of other venous thrombosis and embolism; Z90.79 Acquired absence of other genital organ(s); Z80.0 Family history of malignant neoplasm of digestive organs; Z80.1 Family history of malignant neoplasm of trachea, bronchus and lung

== ENCOUNTER 2023-04-21 15:55 | Outpatient (CLI) | payer MEDICARE, OTHER ==
[~2023-04-21] VITALS: Ht 167.6 cm; Wt 72.7 kg
[~2023-04-21 15:55] MED LIST changes: +ACET300T52 PO; +DIFI200T PO; +ERGO500029 PO; +FIDA200TA PO; +FURO20TA2 PO; +LEVO75TA4 PO; +METO25TA4 PO; +PANT40TA29 PO; +XARE20TA PO
[2023-04-21 16:10] VITALS: BP 141/65; O2SAT 97
[2023-04-21] MEDS ORDERED: BEZLOTOXUMAB 800 MG in NS 100 ML IV ONE (16:30)
[2023-04-21 18:15] VITALS: BP 159/75; O2SAT 96
== END 2023-04-21 18:15 ==
LOC: M INFU 15:55
PROVIDERS: ATTEND General Practice
DX: A04.71 Enterocolitis due to Clostridium difficile, recurrent (principal); Z88.2 Allergy status to sulfonamides
CPT/HCPCS: 96365; J0565

== ENCOUNTER → 2023-05-12 | Outpatient (CLI) | payer MEDICARE, OTHER ==
[2023-05-12 16:25] LABS: CREATININE FOR GFR 1.32 MG/DL (0.55-1.30)
== END ==
LOC: M PLALAB 12:26
PROVIDERS: ATTEND Physical Medicine & Rehabilitation
DX: M54.17 Radiculopathy, lumbosacral region (principal); M47.897 Other spondylosis, lumbosacral region

== ENCOUNTER 2023-06-01 09:13 | Emergency (ER) | payer MEDICARE, OTHER ==
[~2023-06-01] VITALS: Ht 167.6 cm; Wt 75.0 kg
[2023-06-01] MEDS ORDERED: LIDOCAINE 2% 5ML JELLY UROJET TOP ONE (09:50)
[2023-06-01 09:56] LABS: BASO % 0.3 % (0.0-1.0); EOS # 0.1 10^3/uL (0.0-0.5); EOS % 1.5 % (0.0-3.0); HEMATOCRIT 44.8 % (36.0-47.0); HEMOGLOBIN 14.2 g/dl (12.0-15.5); LYMPH # 0.4 10^3/uL (1.5-5.0); MEAN CORPUSCULAR HEMOGLOBIN 29.8 pg (27.0-33.0); MEAN CORPUSCULAR HGB CONC 31.7 g/dl (32.0-36.5); MEAN CORPUSCULAR VOLUME 94.1 fl (80.0-96.0); MONO # 0.4 10^3/uL (0.0-0.8); MONO % 4.9 % (2.0-8.0); NEUTROPHILS # 7.9 10^3/uL (1.5-8.5); NEUTROPHILS % 89.1 % (36.0-66.0); PLATELET COUNT, AUTOMATED 226 10^3/uL (150-450); RED BLOOD COUNT 4.76 10^6/uL (4.00-5.40); WHITE BLOOD COUNT 8.8 10^3/uL (4.0-10.0)
[2023-06-01 10:24] LABS: CPK CREATINE PHOSPHOKINASE 39 U/L (34-145)
[2023-06-01 10:25] LABS: ALBUMIN 3.4 G/DL (3.2-5.2); ALKALINE PHOSPHATASE 102 U/L (46-116); ALT/SGPT 17 U/L (7.0-40); AST/SGOT 29 U/L (<34); BILIRUBIN,DIRECT 0.2 MG/DL (<0.4); BILIRUBIN,TOTAL 0.6 MG/DL (0.3-1.2); BLOOD UREA NITROGEN 8 MG/DL (9-23); CALCIUM LEVEL 8.6 MG/DL (8.3-10.6); CARBON DIOXIDE LEVEL 28 MMOL/L (20-31); CHLORIDE LEVEL 102 MMOL/L (98-107); CREATININE FOR GFR 1.03 MG/DL (0.55-1.30); GLOMERULAR FILTRATION RATE 54.6 (>32); GLUCOSE, FASTING 108 MG/DL (74-106); POTASSIUM SERUM 4.1 MMOL/L (3.5-5.1); SODIUM LEVEL 137 MMOL/L (136-145); TOTAL PROTEIN 6.2 G/DL (5.7-8.2)
[2023-06-01 10:28] LABS: CK-MB VALUE MASS < 1.0 NG/ML (<3.6); MB/CK RELATIVE INDEX 2.56 (< OR =4)
[2023-06-01 10:32] LABS: THYROID STIMULATING HORMONE 2.587 uIU/ML (0.55-4.78)
[2023-06-01] MEDS ORDERED: ACETAMINOPHEN TAB 650MG DOSE (2X325MG) PO ONE (12:05)
[2023-06-01] MEDS ORDERED: MORPHINE 2 MG/ML 1ML VIAL IV ONE (13:30)
[2023-06-01] MEDS ORDERED: ONDANSETRON 4MG 2ML VIAL IV ONE (13:40)
[2023-06-01] MEDS ORDERED: KETOROLAC 30 MG/ML 1ML VIAL IV ONE (14:00)
[2023-06-01] MEDS ORDERED: ISOVUE-370 76% 100ML VIAL As Ordered ONE (14:17)
[2023-06-01] MEDS ORDERED: MEDR4PAK PO (16:28)
[2023-06-01 16:37] VITALS: BP 169/79; TEMP 97.5; O2SAT 98
== END 2023-06-01 16:48 | disposition home or self-care (01) ==
LOC: M ED 09:13 → EDBD 09:13 → M ED 16:48
DX: R26.89 Other abnormalities of gait and mobility (principal); I44.4 Left anterior fascicular block; I45.10 Unspecified right bundle-branch block; I10 Essential (primary) hypertension; N18.30 Chronic kidney disease, stage 3 unspecified; E78.5 Hyperlipidemia, unspecified; G47.33 Obstructive sleep apnea (adult) (pediatric); Z87.891 Personal history of nicotine dependence; Z88.2 Allergy status to sulfonamides; Z79.02 Long term (current) use of antithrombotics/antiplatelets; Z79.83 Long term (current) use of bisphosphonates; Z79.899 Other long term (current) drug therapy
CPT/HCPCS: 51701; 70450; 71045; 71275; 72131; 74177; 80047; 80048; 80076; 81001; 82550; 82553; 83605; 84443; 84484; 85025; 87040; 87486; 87581; 87633; 87798; 93005; 96374; 96375; 99285; J1885; J2405; Q9967

== ENCOUNTER 2023-06-15 13:01 | Observation (INO) | payer MEDICARE, OTHER ==
[~2023-06-15] VITALS: Ht 167.6 cm; Wt 80.5 kg
[~2023-06-15 13:01] MED LIST changes: +MEDR4PAK PO
[2023-06-15] MEDS ORDERED: PERCOCET 5MG/325MG TAB PO ONE (13:50)
[2023-06-15] MEDS ORDERED: MORPHINE 2 MG/ML 1ML VIAL IV ONE (15:55)
[2023-06-15 16:28] LABS: BASO # 0.1 10^3/uL (0.0-0.2); BASO % 0.6 % (0.0-1.0); EOS # 0.1 10^3/uL (0.0-0.5); EOS % 1.4 % (0.0-3.0); HEMATOCRIT 46.1 % (36.0-47.0); HEMOGLOBIN 14.6 g/dl (12.0-15.5); LYMPH # 2.2 10^3/uL (1.5-5.0); LYMPH % 24.3 % (24.0-44.0); MEAN CORPUSCULAR HGB CONC 31.7 g/dl (32.0-36.5); MEAN CORPUSCULAR VOLUME 94.7 fl (80.0-96.0); MONO # 0.7 10^3/uL (0.0-0.8); MONO % 8.2 % (2.0-8.0); NEUTROPHILS # 5.9 10^3/uL (1.5-8.5); NEUTROPHILS % 64.9 % (36.0-66.0); PLATELET COUNT, AUTOMATED 239 10^3/uL (150-450); RED BLOOD COUNT 4.87 10^6/uL (4.00-5.40); WHITE BLOOD COUNT 9.1 10^3/uL (4.0-10.0)
[2023-06-15 16:53] LABS: BLOOD UREA NITROGEN 14 MG/DL (9-23); CALCIUM LEVEL 8.6 MG/DL (8.3-10.6); CARBON DIOXIDE LEVEL 30 MMOL/L (20-31); CHLORIDE LEVEL 104 MMOL/L (98-107); CREATININE FOR GFR 0.93 MG/DL (0.55-1.30); GLOMERULAR FILTRATION RATE > 60.0 (>32); GLUCOSE, FASTING 107 MG/DL (74-106); POTASSIUM SERUM 5.4 MMOL/L (3.5-5.1); SODIUM LEVEL 139 MMOL/L (136-145)
[2023-06-15 17:27] LABS: RSV AMPLIFICATION NEGATIVE (NEGATIVE)
[2023-06-15] MEDS ORDERED: ONDANSETRON 4MG 2ML VIAL IV ONE (17:35)
[2023-06-15] MEDS ORDERED: MOM 30ML SUSPENSION UDC PO PRN (19:20)
[2023-06-15] MEDS ORDERED: MED REC IN PROGRESS XX SCH (19:25)
[2023-06-15] MEDS ORDERED: HOME MED LIST COMPLETE! XX SCH (19:50)
[2023-06-15] MEDS: DOCUSATE SODIUM 100MG CAPSULE PO SCH (23:17)
[2023-06-15] MEDS: METOPROLOL TART 25 MG TABLET PO SCH (23:17)
[2023-06-15] MEDS: PANTOPRAZOLE 40MG TAB (PROTONIX) PO SCH (23:17)
[2023-06-15 23:53] VITALS: BP 161/67; TEMP 98.1; O2SAT 95
[2023-06-16] MEDS: MORPHINE 2 MG/ML 1ML VIAL IV PRN ×6 (00:43→23:15)
[2023-06-16 04:41] VITALS: BP 157/69; TEMP 97.5; O2SAT 96
[2023-06-16] MEDS: LEVOTHYROXINE 75MCG TABLET (0.075MG) PO SCH (05:16)
[2023-06-16] MEDS: ACETAMINOPHEN TAB 650MG DOSE (2X325MG) PO PRN ×2 (05:21→13:08)
[2023-06-16 05:35] LABS: HEMATOCRIT 44.4 % (36.0-47.0); HEMOGLOBIN 14.1 g/dl (12.0-15.5); MEAN CORPUSCULAR HEMOGLOBIN 30.1 pg (27.0-33.0); MEAN CORPUSCULAR HGB CONC 31.8 g/dl (32.0-36.5); MEAN CORPUSCULAR VOLUME 94.7 fl (80.0-96.0); PLATELET COUNT, AUTOMATED 216 10^3/uL (150-450); RED BLOOD COUNT 4.69 10^6/uL (4.00-5.40); WHITE BLOOD COUNT 8.3 10^3/uL (4.0-10.0)
[2023-06-16 06:08] LABS: CALCIUM LEVEL 8.4 MG/DL (8.3-10.6); CREATININE FOR GFR 1.03 MG/DL (0.55-1.30); GLOMERULAR FILTRATION RATE 54.6 (>32); POTASSIUM SERUM 4.5 MMOL/L (3.5-5.1)
[2023-06-16] MEDS: PANTOPRAZOLE 40MG TAB (PROTONIX) PO SCH ×2 (08:21→20:31)
[2023-06-16] MEDS: DOCUSATE SODIUM 100MG CAPSULE PO SCH ×2 (08:21→20:31)
[2023-06-16] MEDS: METOPROLOL TART 25 MG TABLET PO SCH ×2 (08:21→20:32)
[2023-06-16] MEDS: ATORVASTATIN 20 MG TAB PO SCH (08:21)
[2023-06-16 14:00] VITALS: BP 153/80; TEMP 97.9; O2SAT 93
[2023-06-16] MEDS ORDERED: SLF 3 ML SYR IV PRN (14:55)
[2023-06-16] MEDS: ESCITALOPRAM OXALATE 10 MG TAB (LEXAPRO) PO SCH (16:49)
[2023-06-16] MEDS: SLF 3 ML SYR IV SCH ×2 (16:49→20:32)
[2023-06-16] MEDS ORDERED: RIVAROXABAN 20MG TAB (XARELTO) PO SCH (18:00)
[2023-06-16 20:28] VITALS: BP 151/80; TEMP 97.5; O2SAT 93
[2023-06-17] MEDS: MORPHINE 2 MG/ML 1ML VIAL IV PRN ×2 (05:42→12:18)
[2023-06-17] MEDS: SLF 3 ML SYR IV SCH ×2 (05:42→12:13)
[2023-06-17] MEDS: LEVOTHYROXINE 75MCG TABLET (0.075MG) PO SCH (05:42)
[2023-06-17 06:04] VITALS: BP 116/49; TEMP 96.8; O2SAT 94
[2023-06-17 06:09] VITALS: BP 152/76; TEMP 96.8; O2SAT 91
[2023-06-17 07:32] LABS: HEMATOCRIT 47.6 % (36.0-47.0); HEMOGLOBIN 14.9 g/dl (12.0-15.5); MEAN CORPUSCULAR HEMOGLOBIN 29.6 pg (27.0-33.0); MEAN CORPUSCULAR HGB CONC 31.3 g/dl (32.0-36.5); MEAN CORPUSCULAR VOLUME 94.6 fl (80.0-96.0); PLATELET COUNT, AUTOMATED 240 10^3/uL (150-450); RED BLOOD COUNT 5.03 10^6/uL (4.00-5.40); WHITE BLOOD COUNT 9.5 10^3/uL (4.0-10.0)
[2023-06-17 08:06] LABS: C REACTIVE PROTEIN QUANTITATIV < 0.40 MG/DL (<1.0)
[2023-06-17 08:07] LABS: BLOOD UREA NITROGEN 13 MG/DL (9-23); CALCIUM LEVEL 8.6 MG/DL (8.3-10.6); CARBON DIOXIDE LEVEL 31 MMOL/L (20-31); CHLORIDE LEVEL 102 MMOL/L (98-107); CREATININE FOR GFR 0.95 MG/DL (0.55-1.30); GLUCOSE, FASTING 85 MG/DL (74-106); POTASSIUM SERUM 4.1 MMOL/L (3.5-5.1); SODIUM LEVEL 139 MMOL/L (136-145)
[2023-06-17] MEDS: DOCUSATE SODIUM 100MG CAPSULE PO SCH (08:43)
[2023-06-17] MEDS: PANTOPRAZOLE 40MG TAB (PROTONIX) PO SCH (08:44)
[2023-06-17] MEDS: ESCITALOPRAM OXALATE 10 MG TAB (LEXAPRO) PO SCH (08:44)
[2023-06-17] MEDS: ATORVASTATIN 20 MG TAB PO SCH (08:44)
[2023-06-17 08:45] VITALS: BP 152/76
[2023-06-17] MEDS: METOPROLOL TART 25 MG TABLET PO SCH (08:45)
[2023-06-17] MEDS ORDERED: GABAPENTIN 100 MG CAP PO SCH (09:00)
[2023-06-17 12:18] VITALS: O2SAT 94
[2023-06-17] MEDS ORDERED: GABA-1171 PO (13:59)
== END 2023-06-17 15:59 | disposition home or self-care (01) ==
LOC: M ED 13:01 → INTOOBSV 19:20 → M ED INP 19:20 → M MSPAV 23:58
PROVIDERS: ADMIT Family Medicine; ATTEND Family Medicine
DX: M25.552 Pain in left hip (principal); M54.50 Low back pain, unspecified; G47.33 Obstructive sleep apnea (adult) (pediatric); K21.9 Gastro-esophageal reflux disease without esophagitis; E78.5 Hyperlipidemia, unspecified; K57.92 Diverticulitis of intestine, part unspecified, without perforation or abscess without bleeding; N18.30 Chronic kidney disease, stage 3 unspecified; I11.9 Hypertensive heart disease without heart failure; I50.9 Heart failure, unspecified; Z88.2 Allergy status to sulfonamides; Z88.8 Allergy status to other drugs, medicaments and biological substances; Z79.899 Other long term (current) drug therapy; E87.5 Hyperkalemia
CPT/HCPCS: 36415; 71045; 72110; 72148; 73502; 80048; 81001; 84132; 85025; 87086; 87631; 93005; 96374; 96375; 96376; 99285; J2405

== ENCOUNTER 2023-06-17 15:42 | Inpatient (IN) | payer MEDICARE, OTHER ==
[~2023-06-17] VITALS: Ht 167.6 cm; Wt 85.2 kg
[~2023-06-17 15:42] MED LIST changes: +GABA-1171 PO
[2023-06-17] MEDS ORDERED: MOM 30ML SUSPENSION UDC PO PRN (16:05)
[2023-06-17] MEDS ORDERED: MORPHINE 2 MG/ML 1ML VIAL IV PRN (16:10)
[2023-06-17 16:20] VITALS: BP 158/77; TEMP 97.1; O2SAT 96
[2023-06-17] MEDS: RIVAROXABAN 20MG TAB (XARELTO) PO SCH (18:37)
[2023-06-17 20:00] VITALS: BP 160/72; TEMP 97.8; O2SAT 96
[2023-06-17] MEDS: GABAPENTIN 100 MG CAP PO SCH (20:33)
[2023-06-17] MEDS: ACETAMINOPHEN 500 MG TAB PO SCH (20:34)
[2023-06-17] MEDS: PANTOPRAZOLE 40MG TAB (PROTONIX) PO SCH (20:35)
[2023-06-17] MEDS: METOPROLOL TART 25 MG TABLET PO SCH (20:36)
[2023-06-18] MEDS: LEVOTHYROXINE 75MCG TABLET (0.075MG) PO SCH (05:49)
[2023-06-18] MEDS: oxyCODONE 5MG TAB PO PRN ×3 (05:52→21:01)
[2023-06-18 06:00] VITALS: BP 168/57; TEMP 96.5; O2SAT 94
[2023-06-18] MEDS: VITAMIN D 50,000 UNITS CAPSULE (ERGOCALCIFEROL 1.25MG) PO SCH (08:42)
[2023-06-18] MEDS: GABAPENTIN 100 MG CAP PO SCH ×2 (08:42→20:58)
[2023-06-18] MEDS: ACETAMINOPHEN 500 MG TAB PO SCH ×3 (08:42→20:58)
[2023-06-18] MEDS: PANTOPRAZOLE 40MG TAB (PROTONIX) PO SCH ×2 (08:43→20:59)
[2023-06-18] MEDS: ESCITALOPRAM OXALATE 10 MG TAB (LEXAPRO) PO SCH (08:43)
[2023-06-18] MEDS: MIRALAX *UNIT DOSE* 17GM PACKET PO SCH (08:48)
[2023-06-18] MEDS: ATORVASTATIN 20 MG TAB PO SCH (08:48)
[2023-06-18] MEDS: METOPROLOL TART 25 MG TABLET PO SCH ×2 (08:48→20:59)
[2023-06-18 14:00] VITALS: BP 165/59; TEMP 97.2; O2SAT 96
[2023-06-18] MEDS: RIVAROXABAN 20MG TAB (XARELTO) PO SCH (16:33)
[2023-06-18 20:00] VITALS: BP 167/74; TEMP 96.9; O2SAT 95
[2023-06-18 22:15] VITALS: BP 118/62
[2023-06-19] MEDS: LEVOTHYROXINE 75MCG TABLET (0.075MG) PO SCH (05:18)
[2023-06-19 06:00] VITALS: BP 136/68; TEMP 96.1; O2SAT 98
[2023-06-19] MEDS: GABAPENTIN 100 MG CAP PO SCH ×2 (08:22→20:25)
[2023-06-19] MEDS: ACETAMINOPHEN 500 MG TAB PO SCH ×3 (08:22→20:26)
[2023-06-19] MEDS: ATORVASTATIN 20 MG TAB PO SCH (08:22)
[2023-06-19] MEDS: ESCITALOPRAM OXALATE 10 MG TAB (LEXAPRO) PO SCH (08:22)
[2023-06-19] MEDS: PANTOPRAZOLE 40MG TAB (PROTONIX) PO SCH ×2 (08:23→20:25)
[2023-06-19] MEDS: METOPROLOL TART 25 MG TABLET PO SCH ×2 (08:23→20:27)
[2023-06-19] MEDS: MIRALAX *UNIT DOSE* 17GM PACKET PO SCH (08:24)
[2023-06-19 14:20] VITALS: BP 140/63; TEMP 97.7; O2SAT 98
[2023-06-19] MEDS: RIVAROXABAN 20MG TAB (XARELTO) PO SCH (17:18)
[2023-06-19] MEDS: CYCLOBENZAPRINE 5MG TABLET PO PRN (17:18)
[2023-06-19] MEDS: oxyCODONE 5MG TAB PO PRN (17:18)
[2023-06-19 20:00] VITALS: BP 158/74; TEMP 97; O2SAT 94
[2023-06-20] MEDS: LEVOTHYROXINE 75MCG TABLET (0.075MG) PO SCH (05:25)
[2023-06-20 06:00] VITALS: BP 136/63; TEMP 97.1; O2SAT 98
[2023-06-20] MEDS: ACETAMINOPHEN 500 MG TAB PO SCH ×3 (07:43→20:49)
[2023-06-20] MEDS: GABAPENTIN 100 MG CAP PO SCH ×2 (07:43→20:49)
[2023-06-20] MEDS: ATORVASTATIN 20 MG TAB PO SCH (07:44)
[2023-06-20] MEDS: CYCLOBENZAPRINE 5MG TABLET PO PRN ×2 (07:44→15:38)
[2023-06-20] MEDS: METOPROLOL TART 25 MG TABLET PO SCH ×2 (07:44→20:48)
[2023-06-20] MEDS: ESCITALOPRAM OXALATE 10 MG TAB (LEXAPRO) PO SCH (07:44)
[2023-06-20] MEDS: PANTOPRAZOLE 40MG TAB (PROTONIX) PO SCH ×2 (07:44→20:48)
[2023-06-20] MEDS: MIRALAX *UNIT DOSE* 17GM PACKET PO SCH (09:00)
[2023-06-20] MEDS: oxyCODONE 5MG TAB PO PRN ×2 (10:33→17:26)
[2023-06-20 14:00] VITALS: BP 140/72; TEMP 97.5; O2SAT 96
[2023-06-20] MEDS: RIVAROXABAN 20MG TAB (XARELTO) PO SCH (17:26)
[2023-06-20 20:00] VITALS: BP 140/67; TEMP 98.3; O2SAT 95
[2023-06-21] MEDS: oxyCODONE 5MG TAB PO PRN ×3 (05:24→14:28)
[2023-06-21] MEDS: LEVOTHYROXINE 75MCG TABLET (0.075MG) PO SCH (05:24)
[2023-06-21 06:00] VITALS: BP 141/67; TEMP 97.6; O2SAT 96
[2023-06-21] MEDS: ACETAMINOPHEN 500 MG TAB PO SCH ×3 (09:09→20:16)
[2023-06-21] MEDS: ESCITALOPRAM OXALATE 10 MG TAB (LEXAPRO) PO SCH (09:09)
[2023-06-21] MEDS: PANTOPRAZOLE 40MG TAB (PROTONIX) PO SCH ×2 (09:09→20:16)
[2023-06-21] MEDS: MIRALAX *UNIT DOSE* 17GM PACKET PO SCH (09:09)
[2023-06-21] MEDS: ATORVASTATIN 20 MG TAB PO SCH (09:09)
[2023-06-21] MEDS: GABAPENTIN 100 MG CAP PO SCH ×2 (09:09→20:17)
[2023-06-21] MEDS: METOPROLOL TART 25 MG TABLET PO SCH ×2 (09:09→20:16)
[2023-06-21 14:00] VITALS: BP 159/72; TEMP 98.9; O2SAT 97
[2023-06-21 15:12] LABS: HEMATOCRIT 41.1 % (36.0-47.0); HEMOGLOBIN 13.2 g/dl (12.0-15.5); MEAN CORPUSCULAR HEMOGLOBIN 30.1 pg (27.0-33.0); MEAN CORPUSCULAR HGB CONC 32.1 g/dl (32.0-36.5); MEAN CORPUSCULAR VOLUME 93.6 fl (80.0-96.0); PLATELET COUNT, AUTOMATED 216 10^3/uL (150-450); RED BLOOD COUNT 4.39 10^6/uL (4.00-5.40); WHITE BLOOD COUNT 7.7 10^3/uL (4.0-10.0)
[2023-06-21 15:41] LABS: ALBUMIN 2.9 G/DL (3.2-5.2); BILIRUBIN,TOTAL 0.3 MG/DL (0.3-1.2); CALCIUM LEVEL 8.3 MG/DL (8.3-10.6); CREATININE FOR GFR 0.99 MG/DL (0.55-1.30); GLOMERULAR FILTRATION RATE 57.2 (>32); POTASSIUM SERUM 3.3 MMOL/L (3.5-5.1); TOTAL PROTEIN 5.5 G/DL (5.7-8.2)
[2023-06-21] MEDS: RIVAROXABAN 20MG TAB (XARELTO) PO SCH (17:06)
[2023-06-21 20:00] VITALS: BP 163/70; TEMP 98.4; O2SAT 96
[2023-06-22] MEDS: LEVOTHYROXINE 75MCG TABLET (0.075MG) PO SCH (05:29)
[2023-06-22 06:00] VITALS: BP 144/67; TEMP 96.7; O2SAT 95
[2023-06-22] MEDS: PANTOPRAZOLE 40MG TAB (PROTONIX) PO SCH ×2 (07:52→20:37)
[2023-06-22] MEDS: oxyCODONE 5MG TAB PO PRN ×2 (07:52→14:42)
[2023-06-22] MEDS: GABAPENTIN 100 MG CAP PO SCH ×2 (07:52→20:36)
[2023-06-22] MEDS: ATORVASTATIN 20 MG TAB PO SCH (07:52)
[2023-06-22] MEDS: METOPROLOL TART 25 MG TABLET PO SCH ×2 (07:52→20:36)
[2023-06-22] MEDS: ESCITALOPRAM OXALATE 10 MG TAB (LEXAPRO) PO SCH (07:53)
[2023-06-22] MEDS: ACETAMINOPHEN 500 MG TAB PO SCH ×3 (07:53→20:37)
[2023-06-22] MEDS: MIRALAX *UNIT DOSE* 17GM PACKET PO SCH (07:53)
[2023-06-22] MEDS ORDERED: POTASSIUM CHLORIDE 10MEQ SR TABLET PO ONE (11:00)
[2023-06-22 14:00] VITALS: BP 136/70; TEMP 97.4; O2SAT 95
[2023-06-22] MEDS ORDERED: SENNA 8.6 MG TAB (SENOKOT) PO PRN (15:40)
[2023-06-22] MEDS ORDERED: PILL CUTTER 1 EACH XX PRN (15:55)
[2023-06-22] MEDS: RIVAROXABAN 20MG TAB (XARELTO) PO SCH (17:11)
[2023-06-22 20:00] VITALS: BP 162/81; TEMP 98.1; O2SAT 95
[2023-06-23] MEDS: oxyCODONE 5MG TAB PO PRN ×4 (05:24→21:05)
[2023-06-23] MEDS: LEVOTHYROXINE 75MCG TABLET (0.075MG) PO SCH (05:58)
[2023-06-23 06:00] VITALS: BP 154/80; TEMP 97.1
[2023-06-23 07:07] LABS: BLOOD UREA NITROGEN 13 MG/DL (9-23); CALCIUM LEVEL 8.4 MG/DL (8.3-10.6); CARBON DIOXIDE LEVEL 27 MMOL/L (20-31); CHLORIDE LEVEL 110 MMOL/L (98-107); CREATININE FOR GFR 0.91 MG/DL (0.55-1.30); GLOMERULAR FILTRATION RATE > 60.0 (>32); GLUCOSE, FASTING 94 MG/DL (74-106); MAGNESIUM LEVEL 1.6 MG/DL (1.8-2.4); POTASSIUM SERUM 4.2 MMOL/L (3.5-5.1); SODIUM LEVEL 144 MMOL/L (136-145)
[2023-06-23] MEDS: MIRALAX *UNIT DOSE* 17GM PACKET PO SCH (09:39)
[2023-06-23] MEDS: GABAPENTIN 100 MG CAP PO SCH ×2 (09:40→21:05)
[2023-06-23] MEDS: METOPROLOL TART 25 MG TABLET PO SCH ×2 (09:41→21:04)
[2023-06-23] MEDS: ATORVASTATIN 20 MG TAB PO SCH (09:41)
[2023-06-23] MEDS: ACETAMINOPHEN 500 MG TAB PO SCH ×3 (09:42→21:04)
[2023-06-23] MEDS: ESCITALOPRAM OXALATE 10 MG TAB (LEXAPRO) PO SCH (09:43)
[2023-06-23] MEDS: PANTOPRAZOLE 40MG TAB (PROTONIX) PO SCH ×2 (09:43→21:05)
[2023-06-23] MEDS ORDERED: MAGNESIUM OXIDE 400MG TAB (MAG-OX) PO ONE (13:00)
[2023-06-23 14:00] VITALS: BP 143/69; TEMP 97.8; O2SAT 96
[2023-06-23] MEDS: RIVAROXABAN 20MG TAB (XARELTO) PO SCH (18:08)
[2023-06-23 20:00] VITALS: BP_SYST 145; BP_SYST 160; BP_DIAS 78; BP_DIAS 82; TEMP 98.3; TEMP 98.8; O2SAT 95; O2SAT 96
[2023-06-24] MEDS: LEVOTHYROXINE 75MCG TABLET (0.075MG) PO SCH (05:35)
[2023-06-24 06:05] VITALS: BP 147/68; TEMP 97.4; O2SAT 96
[2023-06-24 06:14] LABS: CALCIUM LEVEL 8.3 MG/DL (8.3-10.6); CREATININE FOR GFR 1.02 MG/DL (0.55-1.30); GLOMERULAR FILTRATION RATE 55.2 (>32); POTASSIUM SERUM 3.9 MMOL/L (3.5-5.1)
[2023-06-24] MEDS: ESCITALOPRAM OXALATE 10 MG TAB (LEXAPRO) PO SCH (07:45)
[2023-06-24] MEDS: ACETAMINOPHEN 500 MG TAB PO SCH ×3 (07:45→20:37)
[2023-06-24] MEDS: PANTOPRAZOLE 40MG TAB (PROTONIX) PO SCH ×2 (07:45→20:37)
[2023-06-24] MEDS: METOPROLOL TART 25 MG TABLET PO SCH ×2 (07:46→20:39)
[2023-06-24] MEDS: MIRALAX *UNIT DOSE* 17GM PACKET PO SCH (07:46)
[2023-06-24] MEDS: GABAPENTIN 100 MG CAP PO SCH ×2 (07:46→20:37)
[2023-06-24] MEDS: ATORVASTATIN 20 MG TAB PO SCH (07:46)
[2023-06-24 14:00] VITALS: BP 141/66; TEMP 97.6; O2SAT 96
[2023-06-24] MEDS: RIVAROXABAN 20MG TAB (XARELTO) PO SCH (17:14)
[2023-06-24] MEDS: oxyCODONE 5MG TAB PO PRN ×2 (19:18→23:17)
[2023-06-24 20:00] VITALS: BP 156/86; TEMP 97.3; O2SAT 96
[2023-06-25] MEDS: LEVOTHYROXINE 75MCG TABLET (0.075MG) PO SCH (05:32)
[2023-06-25 06:00] VITALS: BP 149/65; TEMP 98; O2SAT 95
[2023-06-25] MEDS: MIRALAX *UNIT DOSE* 17GM PACKET PO SCH (08:38)
[2023-06-25] MEDS: ATORVASTATIN 20 MG TAB PO SCH (08:39)
[2023-06-25] MEDS: ACETAMINOPHEN 500 MG TAB PO SCH (08:39)
[2023-06-25] MEDS: VITAMIN D 50,000 UNITS CAPSULE (ERGOCALCIFEROL 1.25MG) PO SCH (08:40)
[2023-06-25] MEDS: ESCITALOPRAM OXALATE 10 MG TAB (LEXAPRO) PO SCH (08:40)
[2023-06-25] MEDS: PANTOPRAZOLE 40MG TAB (PROTONIX) PO SCH (08:40)
[2023-06-25 08:41] VITALS: BP 149/65
[2023-06-25] MEDS: GABAPENTIN 100 MG CAP PO SCH (08:41)
[2023-06-25] MEDS: METOPROLOL TART 25 MG TABLET PO SCH (08:41)
[2023-06-25] MEDS: oxyCODONE 5MG TAB PO PRN (08:42)
[2023-07-01] MEDS ORDERED: HYDR-3713 PO (14:12)
[2023-07-01] MEDS ORDERED: GABA-1171 PO (17:49)
[2023-07-01] MEDS ORDERED: FURO20TA2 PO (18:13)
== END 2023-06-25 11:20 | disposition home health service (06) | DRG 554 ==
LOC: UNDOADMIN 16:05 → M PM&R 16:05
PROVIDERS: ADMIT Student in an Organized Health Care Education/Training Program; ATTEND Student in an Organized Health Care Education/Training Program
DX: M16.12 Unilateral primary osteoarthritis, left hip (principal); I13.0 Hypertensive heart and chronic kidney disease with heart failure and stage 1 through stage 4 chronic kidney disease, or unspecified chronic kidney disease; Z74.09 Other reduced mobility; Z74.1 Need for assistance with personal care; G89.29 Other chronic pain; M51.26 Other intervertebral disc displacement, lumbar region; M48.061 Spinal stenosis, lumbar region without neurogenic claudication; Z66 Do not resuscitate; G47.33 Obstructive sleep apnea (adult) (pediatric); K21.9 Gastro-esophageal reflux disease without esophagitis; K59.00 Constipation, unspecified; E78.5 Hyperlipidemia, unspecified; N18.30 Chronic kidney disease, stage 3 unspecified; I48.91 Unspecified atrial fibrillation; E55.9 Vitamin D deficiency, unspecified; I50.9 Heart failure, unspecified; F32.A Depression, unspecified; F41.9 Anxiety disorder, unspecified; E03.9 Hypothyroidism, unspecified; Z98.41 Cataract extraction status, right eye; Z98.42 Cataract extraction status, left eye; Z96.641 Presence of right artificial hip joint; Z90.79 Acquired absence of other genital organ(s); Z90.49 Acquired absence of other specified parts of digestive tract; Z79.890 Hormone replacement therapy; Z79.899 Other long term (current) drug therapy; Z88.1 Allergy status to other antibiotic agents; Z88.8 Allergy status to other drugs, medicaments and biological substances; Z20.822 Contact with and (suspected) exposure to COVID-19; Z79.01 Long term (current) use of anticoagulants; Z86.711 Personal history of pulmonary embolism; Z86.718 Personal history of other venous thrombosis and embolism

== ENCOUNTER → 2023-07-22 | Outpatient (CLI) | payer MEDICARE, OTHER ==
[~2023-07-22] MED LIST changes: +AMLO10TA PO; +COLA100C5 PO; +HYDR-3713 PO; +LIDO5TD TD
[2023-07-22 17:16] LABS: BASO # 0.1 10^3/uL (0.0-0.2); BASO % 0.7 % (0.0-1.0); EOS # 0.2 10^3/uL (0.0-0.5); EOS % 2.6 % (0.0-3.0); HEMATOCRIT 44.2 % (36.0-47.0); HEMOGLOBIN 14.3 g/dl (12.0-15.5); LYMPH # 2.3 10^3/uL (1.5-5.0); LYMPH % 31.3 % (24.0-44.0); MEAN CORPUSCULAR HEMOGLOBIN 30.6 pg (27.0-33.0); MEAN CORPUSCULAR HGB CONC 32.4 g/dl (32.0-36.5); MEAN CORPUSCULAR VOLUME 94.6 fl (80.0-96.0); MONO # 0.6 10^3/uL (0.0-0.8); NEUTROPHILS # 4.1 10^3/uL (1.5-8.5); NEUTROPHILS % 57.1 % (36.0-66.0); PLATELET COUNT, AUTOMATED 231 10^3/uL (150-450); RED BLOOD COUNT 4.67 10^6/uL (4.00-5.40); WHITE BLOOD COUNT 7.3 10^3/uL (4.0-10.0)
[2023-07-22 17:29] LABS: ERYTHROCYTE SEDIMENTATION RATE 3 mm/hr (0-30)
[2023-07-22 17:30] LABS: INR 3.13
[2023-07-22 17:38] LABS: C REACTIVE PROTEIN QUANTITATIV < 0.40 MG/DL (<1.0)
[2023-07-22 17:40] LABS: ALBUMIN 3.7 G/DL (3.2-5.2); ALKALINE PHOSPHATASE 89 U/L (46-116); ALT/SGPT 10 U/L (7.0-40); AST/SGOT 14 U/L (<34); BILIRUBIN,TOTAL 0.4 MG/DL (0.3-1.2); BLOOD UREA NITROGEN 16 MG/DL (9-23); CALCIUM LEVEL 9.4 MG/DL (8.3-10.6); CARBON DIOXIDE LEVEL 27 MMOL/L (20-31); CHLORIDE LEVEL 108 MMOL/L (98-107); CREATININE FOR GFR 0.92 MG/DL (0.55-1.30); GLOMERULAR FILTRATION RATE > 60.0 (>32); GLUCOSE, FASTING 89 MG/DL (74-106); POTASSIUM SERUM 3.9 MMOL/L (3.5-5.1); SODIUM LEVEL 142 MMOL/L (136-145); TOTAL PROTEIN 6.5 G/DL (5.7-8.2)
[2023-07-22 17:41] LABS: TOTAL 25(OH) VITAMIN D 109.6 NG/ML (20.0-100.0)
[2023-07-22 17:45] LABS: HEMOGLOBIN A1c 5.4 % (4.0-6.0)
== END ==
LOC: M RAD 16:00
PROVIDERS: ATTEND Physician Assistant
DX: M16.12 Unilateral primary osteoarthritis, left hip (principal); Z79.01 Long term (current) use of anticoagulants; Z79.899 Other long term (current) drug therapy

== ENCOUNTER → 2023-07-29 | Outpatient (CLI) | payer MEDICARE, OTHER | LOC: M WHC 12:15 | PROVIDERS: ATTEND Physician Assistant | DX: M16.12 Unilateral primary osteoarthritis, left hip (principal) ==

== ENCOUNTER → 2023-08-10 | Outpatient (CLI) | payer MEDICARE, OTHER | LOC: M RAD 07:56 | PROVIDERS: ATTEND Orthopaedic Surgery | DX: M16.12 Unilateral primary osteoarthritis, left hip (principal); Z96.641 Presence of right artificial hip joint; M47.818 Spondylosis without myelopathy or radiculopathy, sacral and sacrococcygeal region; M47.816 Spondylosis without myelopathy or radiculopathy, lumbar region ==

== ENCOUNTER 2023-08-24 11:00 | Inpatient (IN) | payer MEDICARE, OTHER ==
[~2023-08-24] VITALS: Ht 167.6 cm; Wt 84.4 kg
[2023-08-24] VITALS (7 sets, daily range): BP systolic 110–157; BP diastolic 60–93; TEMP 97.3–98.2; O2SAT 96–97
[~2023-08-24 11:00] MED LIST changes: +HYDROmorphone HCL 2MG/ML 1ML VIAL As Ordered ONE; +LIDOCAINE 2% 100MG/5ML SDV (FOR ANES.) As Ordered ONE; +MIDAZOLAM INJ 2MG/2ML VIAL As Ordered ONE; +ONDANSETRON 4MG 2ML VIAL As Ordered ONE; +ROCURONIUM BROMIDE 50MG/5ML VIAL As Ordered ONE; +fentaNYL 100 MCG/2 ML INJECTION As Ordered ONE; +propofoL 200 MG/20 ML VIAL As Ordered ONE
[2023-08-24] MEDS: LR 1,000 ML IV SCH ×3 (12:10→18:36)
[2023-08-24] MEDS: ceFAZolin SOD 2 GM in IV 1 EA IV ONE (12:30)
[2023-08-24] MEDS ORDERED: METOPROLOL 5 MG/5 ML VIAL As Ordered ONE (12:46)
[2023-08-24] MEDS ORDERED: ESMOLOL INJ 100MG/10ML VIAL As Ordered ONE (12:46)
[2023-08-24] MEDS: TRANEXAMIC ACID 100 MG/ML 10ML VIAL IV ONE (12:50)
[2023-08-24] MEDS ORDERED: propofoL 500 MG/50 ML VIAL As Ordered ONE (12:54)
[2023-08-24] MEDS: TRANEXAMIC ACID 100 MG/ML 10ML VIAL As Ordered ONE (13:04)
[2023-08-24] MEDS ORDERED: LABETALOL 100MG/20ML VIAL As Ordered ONE (13:05)
[2023-08-24] MEDS ORDERED: hydrALAZINE 20MG/ML 1ML VIAL As Ordered ONE (13:21)
[2023-08-24] MEDS: ROPIVA 100MG/KETOR 15MG/EPINEPHRINE 0.3MG IN NS 50ML SYRINGE PA ONE (14:27)
[2023-08-24] MEDS ORDERED: ONDANSETRON 4MG 2ML VIAL IV PRN (15:15)
[2023-08-24] MEDS ORDERED: SENNA 8.6 MG TAB (SENOKOT) PO PRN (15:15)
[2023-08-24] MEDS ORDERED: oxyCODONE 5MG TAB PO PRN (15:35)
[2023-08-24] MEDS ORDERED: fentaNYL 100 MCG/2 ML INJECTION IV PRN (15:35)
[2023-08-24] MEDS ORDERED: FUROSEMIDE 20 MG TAB PO PRN (15:55)
[2023-08-24] MEDS ORDERED: ONDANSETRON 4MG ORAL DISINTEGRATING TAB PO PRN (15:55)
[2023-08-24] MEDS: LABETALOL 100MG/20ML VIAL IV ONE (16:05)
[2023-08-24] MEDS: ONDANSETRON 4MG 2ML VIAL IV PRN (16:25)
[2023-08-24] MEDS: METOCLOPRAMIDE INJ 10MG/2ML VIAL IV STA (16:53)
[2023-08-24] MEDS: HYDROMORPHONE HCL 0.5 MG/ 0.5 ML SYRINGE IV PRN (17:13)
[2023-08-24] MEDS: oxyCODONE 5MG TAB PO PRN ×2 (17:38→21:26)
[2023-08-24] MEDS ORDERED: ISOVUE-370 76% 100ML VIAL As Ordered ONE (18:00)
[2023-08-24] MEDS: FERROUS SULFATE 325MG TAB PO SCH (18:26)
[2023-08-24] MEDS: ASCORBIC ACID 500 MG TAB PO SCH (18:26)
[2023-08-24] MEDS: ACETAMINOPHEN TAB 650MG DOSE (2X325MG) PO SCH (18:35)
[2023-08-24] MEDS: RIVAROXABAN 20MG TAB (XARELTO) PO SCH (18:35)
[2023-08-24] MEDS ORDERED: ASPIRIN 81MG ENTERIC TABLET PO SCH (21:00)
[2023-08-24] MEDS: DOCUSATE SODIUM 100MG CAPSULE PO SCH (21:27)
[2023-08-24] MEDS: PANTOPRAZOLE 40MG TAB (PROTONIX) PO SCH (21:27)
[2023-08-24] MEDS: ATORVASTATIN 20 MG TAB PO SCH (21:27)
[2023-08-24] MEDS: NAPROXEN 250 MG TAB PO SCH (21:27)
[2023-08-24] MEDS: METOPROLOL TART 25 MG TABLET PO SCH (21:28)
[2023-08-24] MEDS: ESCITALOPRAM OXALATE 10 MG TAB (LEXAPRO) PO SCH (21:28)
[2023-08-24] MEDS: ceFAZolin SOD 2 GM in IV 1 EA IV SCH (21:31)
[2023-08-25 03:25] VITALS: BP 112/68; TEMP 98.4; O2SAT 96
[2023-08-25] MEDS: LEVOTHYROXINE 75MCG TABLET (0.075MG) PO SCH (06:00)
[2023-08-25 06:20] LABS: HEMATOCRIT 31.5 % (36.0-47.0); HEMOGLOBIN 10.1 g/dl (12.0-15.5); MEAN CORPUSCULAR HGB CONC 32.1 g/dl (32.0-36.5); MEAN CORPUSCULAR VOLUME 96.6 fl (80.0-96.0); PLATELET COUNT, AUTOMATED 204 10^3/uL (150-450); RED BLOOD COUNT 3.26 10^6/uL (4.00-5.40); WHITE BLOOD COUNT 12.2 10^3/uL (4.0-10.0)
[2023-08-25 06:36] LABS: ALBUMIN 2.3 G/DL (3.2-5.2); ALKALINE PHOSPHATASE 62 U/L (46-116); ALT/SGPT 34 U/L (7.0-40); AST/SGOT 52 U/L (<34); BILIRUBIN,TOTAL 0.4 MG/DL (0.3-1.2); BLOOD UREA NITROGEN 17 MG/DL (9-23); CALCIUM LEVEL 8.1 MG/DL (8.3-10.6); CARBON DIOXIDE LEVEL 26 MMOL/L (20-31); CHLORIDE LEVEL 105 MMOL/L (98-107); CREATININE FOR GFR 0.91 MG/DL (0.55-1.30); GLOMERULAR FILTRATION RATE > 60.0 (>32); GLUCOSE, FASTING 130 MG/DL (74-106); PHOSPHORUS LEVEL 4.2 MG/DL (2.4-5.1); POTASSIUM SERUM 4.3 MMOL/L (3.5-5.1); SODIUM LEVEL 139 MMOL/L (136-145); TOTAL PROTEIN 4.4 G/DL (5.7-8.2)
[2023-08-25 07:25] VITALS: BP 119/58; TEMP 97.9; O2SAT 97
[2023-08-25 08:54] VITALS: BP 120/76
[2023-08-25] MEDS ORDERED: SENO8.6T5 PO (08:57)
[2023-08-25] MEDS ORDERED: NAPR-849 PO (08:57)
[2023-08-25] MEDS ORDERED: OXYC-517 PO (08:57)
[2023-08-25] MEDS ORDERED: CEFD300CAP PO (08:58)
[2023-08-25] MEDS ORDERED: FERR1TAB8 PO (08:58)
[2023-08-25] MEDS ORDERED: ASCO50TA PO (08:58)
[2023-08-25] MEDS: MORPHINE 2 MG/ML 1ML VIAL IV ONE (10:32)
[2023-08-25] MEDS: oxyCODONE 5MG TAB PO ONE (10:33)
[2023-08-25 11:30] VITALS: BP 118/53; TEMP 97.9; O2SAT 92
[2023-08-25] MEDS: ACETAMINOPHEN 500 MG TAB PO SCH (12:25)
[2023-08-25] MEDS ORDERED: PREVNAR-20 VACCINE 0.5ML SYRINGE IM.IMMUN ONE (18:00)
[2023-08-25] MEDS ORDERED: CEFDINIR 300 MG CAP (OMNICEF) PO SCH (21:00)
== END 2023-08-25 14:14 | DRG 470 ==
LOC: M SDC 11:00 → M ED INP 11:01 → OBSVTOIN 11:02 → M MSPAV 18:17
PROVIDERS: ADMIT Orthopaedic Surgery; ATTEND Orthopaedic Surgery
PROC: 0SRB0JA Replacement of Left Hip Joint with Synthetic Substitute, Uncemented, Open Approach (ICD-10-PCS; principal; 2023-08-24 12:45)
DX: M16.12 Unilateral primary osteoarthritis, left hip (principal); I13.0 Hypertensive heart and chronic kidney disease with heart failure and stage 1 through stage 4 chronic kidney disease, or unspecified chronic kidney disease; I47.10 Supraventricular tachycardia, unspecified; N18.30 Chronic kidney disease, stage 3 unspecified; E03.9 Hypothyroidism, unspecified; I50.9 Heart failure, unspecified; E78.5 Hyperlipidemia, unspecified; K21.9 Gastro-esophageal reflux disease without esophagitis; I25.10 Atherosclerotic heart disease of native coronary artery without angina pectoris; G89.29 Other chronic pain; F41.9 Anxiety disorder, unspecified; E55.9 Vitamin D deficiency, unspecified; M48.061 Spinal stenosis, lumbar region without neurogenic claudication; Z88.8 Allergy status to other drugs, medicaments and biological substances; Z79.899 Other long term (current) drug therapy; K57.90 Diverticulosis of intestine, part unspecified, without perforation or abscess without bleeding; G47.33 Obstructive sleep apnea (adult) (pediatric); Z79.01 Long term (current) use of anticoagulants; Z95.2 Presence of prosthetic heart valve; Z86.711 Personal history of pulmonary embolism; Z86.718 Personal history of other venous thrombosis and embolism; Z98.41 Cataract extraction status, right eye; Z98.42 Cataract extraction status, left eye

== ENCOUNTER 2023-08-25 12:22 | Inpatient (IN) | payer MEDICARE, OTHER ==
[~2023-08-25] VITALS: Ht 167.6 cm; Wt 98.0 kg
[~2023-08-25 12:22] MED LIST changes: +ASCO50TA PO; +CEFD300CAP PO; +FERR1TAB8 PO; -HYDROmorphone HCL 2MG/ML 1ML VIAL As Ordered ONE; -LIDOCAINE 2% 100MG/5ML SDV (FOR ANES.) As Ordered ONE; -MIDAZOLAM INJ 2MG/2ML VIAL As Ordered ONE; +NAPR-849 PO; -ONDANSETRON 4MG 2ML VIAL As Ordered ONE; +OXYC-517 PO; -ROCURONIUM BROMIDE 50MG/5ML VIAL As Ordered ONE; +SENO8.6T5 PO; -fentaNYL 100 MCG/2 ML INJECTION As Ordered ONE; -propofoL 200 MG/20 ML VIAL As Ordered ONE
[2023-08-25] MEDS ORDERED: MOM 30ML SUSPENSION UDC PO PRN (13:05)
[2023-08-25] MEDS ORDERED: NORCO, ANEXSIA 5/325MG TABLET (HYDROcodone/ACETAMINOPHEN) PO PRN (13:05)
[2023-08-25] MEDS ORDERED: MIRALAX *UNIT DOSE* 17GM PACKET PO PRN (13:05)
[2023-08-25] MEDS ORDERED: SENOKOT S TAB PO PRN (13:05)
[2023-08-25 14:20] VITALS: BP 123/56; TEMP 97; O2SAT 94
[2023-08-25] MEDS: GABAPENTIN 100 MG CAP PO SCH (16:09)
[2023-08-25] MEDS: oxyCODONE 5MG TAB PO PRN (16:10)
[2023-08-25] MEDS: RIVAROXABAN 20MG TAB (XARELTO) PO SCH (17:08)
[2023-08-25] MEDS: NAPROXEN 250 MG TAB PO SCH (17:10)
[2023-08-25 20:00] VITALS: BP 124/58; TEMP 97.1; O2SAT 93
[2023-08-25] MEDS: PANTOPRAZOLE 40MG TAB (PROTONIX) PO SCH (21:20)
[2023-08-25] MEDS: ATORVASTATIN 20 MG TAB PO SCH (21:20)
[2023-08-25] MEDS: ESCITALOPRAM OXALATE 10 MG TAB (LEXAPRO) PO SCH (21:21)
[2023-08-25] MEDS: CEFDINIR 300 MG CAP (OMNICEF) PO SCH (21:21)
[2023-08-25] MEDS: METOPROLOL TART 25 MG TABLET PO SCH (21:22)
[2023-08-26 06:00] VITALS: BP 105/57; TEMP 96.1; O2SAT 95
[2023-08-26 06:40] LABS: HEMATOCRIT 26.7 % (36.0-47.0); HEMOGLOBIN 8.5 g/dl (12.0-15.5); MEAN CORPUSCULAR HGB CONC 31.8 g/dl (32.0-36.5); MEAN CORPUSCULAR VOLUME 97.4 fl (80.0-96.0); PLATELET COUNT, AUTOMATED 185 10^3/uL (150-450); RED BLOOD COUNT 2.74 10^6/uL (4.00-5.40); WHITE BLOOD COUNT 9.4 10^3/uL (4.0-10.0)
[2023-08-26] MEDS: LEVOTHYROXINE 75MCG TABLET (0.075MG) PO SCH (06:45)
[2023-08-26 06:54] LABS: CALCIUM LEVEL 8.1 MG/DL (8.3-10.6); CREATININE FOR GFR 1.26 MG/DL (0.55-1.30); GLOMERULAR FILTRATION RATE 43.3 (>32); POTASSIUM SERUM 4.1 MMOL/L (3.5-5.1)
[2023-08-26] MEDS: FERROUS SULFATE 325MG TAB PO SCH (09:46)
[2023-08-26] MEDS: ASCORBIC ACID 500 MG TAB PO SCH (09:46)
[2023-08-26 13:44] VITALS: O2SAT 95
[2023-08-26 14:00] VITALS: BP 118/56; TEMP 97; O2SAT 92
[2023-08-26] MEDS: VANCOMYCIN ORAL SOL 250MG/5ML ORAL SYRINGE PO SCH (15:28)
[2023-08-26 20:00] VITALS: BP 135/63; TEMP 96.5; O2SAT 95
[2023-08-26] MEDS: oxyCODONE 5MG TAB PO PRN (23:11)
[2023-08-27 06:00] VITALS: BP 131/62; TEMP 97.1; O2SAT 92
[2023-08-27] MEDS: ACETAMINOPHEN TAB 650MG DOSE (2X325MG) PO SCH (13:00)
[2023-08-27 14:00] VITALS: BP 128/59; TEMP 98.1; O2SAT 91
[2023-08-27 20:00] VITALS: BP 127/55; TEMP 97.1; O2SAT 93
[2023-08-28 04:00] VITALS: BP 118/58; TEMP 97.2; O2SAT 94
[2023-08-28] MEDS ORDERED: ONDANSETRON 4MG 2ML VIAL IV PRN (13:00)
[2023-08-28] MEDS ORDERED: ONDANSETRON 4MG 2ML VIAL IV ONE (13:00)
[2023-08-28] MEDS: ONDANSETRON 4MG ORAL DISINTEGRATING TAB PO ONE (13:29)
[2023-08-28 14:00] VITALS: BP 121/58; TEMP 97.6; O2SAT 96
[2023-08-28 20:00] VITALS: BP 120/54; TEMP 97.4; O2SAT 93
[2023-08-29 05:28] VITALS: BP 118/56; TEMP 97; O2SAT 96
[2023-08-29 14:00] VITALS: BP 125/61; TEMP 97.2; O2SAT 95
[2023-08-29 19:36] VITALS: BP 131/63; TEMP 97.3; O2SAT 97
[2023-08-30 06:00] VITALS: BP 124/57; TEMP 97; O2SAT 96
[2023-08-30 14:00] VITALS: BP 110/54; TEMP 97.2; O2SAT 95
[2023-08-30 20:00] VITALS: BP 149/65; TEMP 98.2; O2SAT 96
[2023-08-31 06:00] VITALS: BP 121/55; TEMP 97.6; O2SAT 94
[2023-08-31 10:10] LABS: HEMOGLOBIN 8.8 g/dl (12.0-15.5); MEAN CORPUSCULAR HEMOGLOBIN 30.4 pg (27.0-33.0); MEAN CORPUSCULAR HGB CONC 30.3 g/dl (32.0-36.5); MEAN CORPUSCULAR VOLUME 100.3 fl (80.0-96.0); PLATELET COUNT, AUTOMATED 370 10^3/uL (150-450); RED BLOOD COUNT 2.89 10^6/uL (4.00-5.40); WHITE BLOOD COUNT 11.8 10^3/uL (4.0-10.0)
[2023-08-31 10:40] LABS: CALCIUM LEVEL 8.4 MG/DL (8.3-10.6); CREATININE FOR GFR 1.02 MG/DL (0.55-1.30); GLOMERULAR FILTRATION RATE 55.2 (>32); POTASSIUM SERUM 3.7 MMOL/L (3.5-5.1)
[2023-08-31] MEDS: methocarbamoL 500 MG TAB PO PRN (11:29)
[2023-08-31] MEDS: VANCOMYCIN 125MG CAPSULE PO SCH (12:17)
[2023-08-31 14:00] VITALS: BP 124/59; TEMP 98.2; O2SAT 95
[2023-08-31 20:00] VITALS: BP 107/52; TEMP 97.2; O2SAT 95
[2023-08-31] MEDS: NYSTATIN 100,000 UNITS/GM TOPICAL PWD 15GM TOP SCH (20:35)
[2023-08-31] MEDS: HYDROCORTISONE 1% CREAM 30GM TOP ONE (20:35)
[2023-09-01 06:00] VITALS: BP 119/61; TEMP 96.9; O2SAT 97
[2023-09-01] MEDS: LACTOBACILLUS ACIDOPHILUS CAP (BACID) PO SCH (09:42)
[2023-09-01] MEDS: LOMOTIL 2.5MG/0.025MG TABLET PO PRN (13:05)
[2023-09-01 14:00] VITALS: BP 117/58; TEMP 97.1; O2SAT 98
[2023-09-01 20:00] VITALS: BP 122/58; TEMP 97.7; O2SAT 93
[2023-09-01] MEDS: ONDANSETRON 4MG ORAL DISINTEGRATING TAB PO PRN (20:07)
[2023-09-02 06:00] VITALS: BP 109/53; TEMP 98.3; O2SAT 93
[2023-09-02 06:38] LABS: HEMATOCRIT 23.7 % (36.0-47.0); HEMOGLOBIN 7.5 g/dl (12.0-15.5); MEAN CORPUSCULAR HEMOGLOBIN 31.3 pg (27.0-33.0); MEAN CORPUSCULAR HGB CONC 31.6 g/dl (32.0-36.5); MEAN CORPUSCULAR VOLUME 98.8 fl (80.0-96.0); PLATELET COUNT, AUTOMATED 386 10^3/uL (150-450); WHITE BLOOD COUNT 8.2 10^3/uL (4.0-10.0)
[2023-09-02 07:01] LABS: BLOOD UREA NITROGEN 19 MG/DL (9-23); CALCIUM LEVEL 8.1 MG/DL (8.3-10.6); CARBON DIOXIDE LEVEL 30 MMOL/L (20-31); CHLORIDE LEVEL 111 MMOL/L (98-107); CREATININE FOR GFR 0.93 MG/DL (0.55-1.30); GLOMERULAR FILTRATION RATE > 60.0 (>32); GLUCOSE, FASTING 92 MG/DL (74-106); POTASSIUM SERUM 3.6 MMOL/L (3.5-5.1); SODIUM LEVEL 145 MMOL/L (136-145)
[2023-09-02 08:00] VITALS: BP 123/57; TEMP 98; O2SAT 95
[2023-09-02 20:00] VITALS: BP 122/53; TEMP 97.3; O2SAT 91
[2023-09-03 05:40] VITALS: BP 112/55; TEMP 97.1; O2SAT 93
[2023-09-03] MEDS ORDERED: LOMOTIL 2.5MG/0.025MG TABLET PO PRN (12:15)
[2023-09-03 13:44] VITALS: BP 104/49; TEMP 97.5; O2SAT 93
[2023-09-03 20:00] VITALS: BP 113/56; TEMP 96.9; O2SAT 96
[2023-09-04 06:00] VITALS: TEMP 97.3; O2SAT 96
[2023-09-04 14:00] VITALS: BP 113/57; TEMP 97.8; O2SAT 98
[2023-09-04 20:00] VITALS: BP 107/53; TEMP 97.2; O2SAT 92
[2023-09-05 06:00] VITALS: BP 128/60; TEMP 97.9; O2SAT 95
[2023-09-05 14:00] VITALS: BP 120/59; TEMP 97.4; O2SAT 94
[2023-09-05 20:12] VITALS: BP 112/56; TEMP 97.7; O2SAT 92
[2023-09-06 06:00] VITALS: BP 117/56; TEMP 97.6; O2SAT 92
[2023-09-06 06:19] LABS: HEMATOCRIT 25.8 % (36.0-47.0); HEMOGLOBIN 7.9 g/dl (12.0-15.5); MEAN CORPUSCULAR HEMOGLOBIN 31.1 pg (27.0-33.0); MEAN CORPUSCULAR HGB CONC 30.6 g/dl (32.0-36.5); MEAN CORPUSCULAR VOLUME 101.6 fl (80.0-96.0); PLATELET COUNT, AUTOMATED 471 10^3/uL (150-450); RED BLOOD COUNT 2.54 10^6/uL (4.00-5.40); WHITE BLOOD COUNT 8.8 10^3/uL (4.0-10.0)
[2023-09-06 06:45] LABS: GLOMERULAR FILTRATION RATE 56.5 (>32); POTASSIUM SERUM 4.6 MMOL/L (3.5-5.1)
[2023-09-06 14:00] VITALS: BP 127/60; TEMP 97; O2SAT 94
[2023-09-06 20:00] VITALS: BP 122/59; TEMP 97.4; O2SAT 93
[2023-09-07 06:00] VITALS: BP 118/63; TEMP 98.1; O2SAT 97
[2023-09-07] MEDS ORDERED: OXYC-517 PO (13:53)
[2023-09-07] MEDS ORDERED: METH-1164 PO (13:53)
[2023-09-07 14:00] VITALS: BP 112/67; TEMP 98.1; O2SAT 97
[2023-09-07 20:00] VITALS: BP 140/63; TEMP 97.1; O2SAT 95
[2023-09-08 06:00] VITALS: BP 125/60; TEMP 97.2; O2SAT 94
[2023-09-08 08:15] VITALS: BP 125/60
== END 2023-09-08 12:15 | disposition home health service (06) | DRG 556 ==
LOC: M PM&R 14:20
PROVIDERS: ADMIT Physical Medicine & Rehabilitation; ATTEND Student in an Organized Health Care Education/Training Program
DX: M25.552 Pain in left hip (principal); I13.0 Hypertensive heart and chronic kidney disease with heart failure and stage 1 through stage 4 chronic kidney disease, or unspecified chronic kidney disease; Z96.643 Presence of artificial hip joint, bilateral; M51.36 Other intervertebral disc degeneration, lumbar region; M48.061 Spinal stenosis, lumbar region without neurogenic claudication; G47.33 Obstructive sleep apnea (adult) (pediatric); K21.9 Gastro-esophageal reflux disease without esophagitis; E78.5 Hyperlipidemia, unspecified; N18.30 Chronic kidney disease, stage 3 unspecified; E55.9 Vitamin D deficiency, unspecified; I50.9 Heart failure, unspecified; F41.9 Anxiety disorder, unspecified; E03.9 Hypothyroidism, unspecified; I25.10 Atherosclerotic heart disease of native coronary artery without angina pectoris; Z90.79 Acquired absence of other genital organ(s); Z98.41 Cataract extraction status, right eye; Z98.42 Cataract extraction status, left eye; Z90.49 Acquired absence of other specified parts of digestive tract; Z79.890 Hormone replacement therapy; Z79.01 Long term (current) use of anticoagulants; Z79.899 Other long term (current) drug therapy; Z88.8 Allergy status to other drugs, medicaments and biological substances; Z74.1 Need for assistance with personal care; M25.551 Pain in right hip; Z74.09 Other reduced mobility; Z86.711 Personal history of pulmonary embolism; Z86.718 Personal history of other venous thrombosis and embolism; Z86.19 Personal history of other infectious and parasitic diseases

== ENCOUNTER → 2023-09-03 | Outpatient (CLI) | payer MEDICARE, OTHER | LOC: M SOG 07:55 | PROVIDERS: ATTEND Orthopaedic Surgery | DX: Z47.1 Aftercare following joint replacement surgery (principal); Z53.9 Procedure and treatment not carried out, unspecified reason ==

== ENCOUNTER → 2023-09-09 | Outpatient (CLI) | payer MEDICARE, OTHER ==
[~2023-09-09] MED LIST changes: +METH-1164 PO
== END ==
LOC: M SOG 07:57
PROVIDERS: ATTEND Orthopaedic Surgery
DX: Z47.1 Aftercare following joint replacement surgery (principal); Z96.643 Presence of artificial hip joint, bilateral

== ENCOUNTER → 2023-09-24 | Outpatient (CLI) | payer MEDICARE, OTHER ==
[2023-09-24 10:57] LABS: ALBUMIN 3.1 G/DL (3.2-5.2); ALKALINE PHOSPHATASE 125 U/L (46-116); ALT/SGPT 10 U/L (7.0-40); AST/SGOT 12 U/L (<34); BILIRUBIN,TOTAL 0.3 MG/DL (0.3-1.2); BLOOD UREA NITROGEN 16 MG/DL (9-23); CALCIUM LEVEL 8.5 MG/DL (8.3-10.6); CARBON DIOXIDE LEVEL 28 MMOL/L (20-31); CHLORIDE LEVEL 110 MMOL/L (98-107); CREATININE FOR GFR 0.93 MG/DL (0.55-1.30); GLOMERULAR FILTRATION RATE > 60.0 (>32); GLUCOSE, FASTING 93 MG/DL (74-106); POTASSIUM SERUM 4.8 MMOL/L (3.5-5.1); SODIUM LEVEL 142 MMOL/L (136-145)
== END ==
LOC: M LAB 09:42
PROVIDERS: ATTEND Family Medicine
DX: I11.0 Hypertensive heart disease with heart failure (principal); I50.20 Unspecified systolic (congestive) heart failure

== ENCOUNTER 2023-10-03 17:03 | Emergency (ER) | payer MEDICARE, OTHER ==
[~2023-10-03] VITALS: Ht 167.6 cm; Wt 82.7 kg
[2023-10-03 17:04] VITALS: TEMP 97.4
[2023-10-03 17:41] LABS: BASO # 0.1 10^3/uL (0.0-0.2); BASO % 0.6 % (0.0-1.0); EOS # 0.1 10^3/uL (0.0-0.5); EOS % 0.5 % (0.0-3.0); HEMATOCRIT 40.1 % (36.0-47.0); HEMOGLOBIN 12.5 g/dl (12.0-15.5); LYMPH # 1.4 10^3/uL (1.5-5.0); LYMPH % 13.6 % (24.0-44.0); MEAN CORPUSCULAR HEMOGLOBIN 29.9 pg (27.0-33.0); MEAN CORPUSCULAR HGB CONC 31.2 g/dl (32.0-36.5); MEAN CORPUSCULAR VOLUME 95.9 fl (80.0-96.0); MONO # 0.5 10^3/uL (0.0-0.8); MONO % 4.6 % (2.0-8.0); NEUTROPHILS # 8.5 10^3/uL (1.5-8.5); NEUTROPHILS % 80.4 % (36.0-66.0); PLATELET COUNT, AUTOMATED 358 10^3/uL (150-450); RED BLOOD COUNT 4.18 10^6/uL (4.00-5.40); WHITE BLOOD COUNT 10.5 10^3/uL (4.0-10.0)
[2023-10-03] MEDS: NS 500 ML IV ONE (18:05)
[2023-10-03 18:11] LABS: LIPASE 27 U/L (12-53)
[2023-10-03 18:13] LABS: ALBUMIN 3.6 G/DL (3.2-5.2); ALKALINE PHOSPHATASE 130 U/L (46-116); ALT/SGPT < 9 U/L (7.0-40); AST/SGOT 13 U/L (<34); BILIRUBIN,DIRECT 0.2 MG/DL (<0.4); BILIRUBIN,TOTAL 0.4 MG/DL (0.3-1.2); BLOOD UREA NITROGEN 15 MG/DL (9-23); CALCIUM LEVEL 9.4 MG/DL (8.3-10.6); CARBON DIOXIDE LEVEL 25 MMOL/L (20-31); CHLORIDE LEVEL 108 MMOL/L (98-107); CREATININE FOR GFR 0.97 MG/DL (0.55-1.30); GLOMERULAR FILTRATION RATE 58.5 (>32); GLUCOSE, FASTING 126 MG/DL (74-106); POTASSIUM SERUM 4.5 MMOL/L (3.5-5.1); SODIUM LEVEL 141 MMOL/L (136-145); TOTAL PROTEIN 6.4 G/DL (5.7-8.2)
[2023-10-03] MEDS ORDERED: ISOVUE-370 76% 100ML VIAL As Ordered ONE (18:23)
[2023-10-03] MEDS ORDERED: NITR-67 PO (20:07)
[2023-10-03 20:16] VITALS: BP 144/67; O2SAT 97
[2023-10-03] MEDS: NITROFURANTOIN (MACROBID) 100 MG CAP PO ONE (20:19)
[2023-10-04] MEDS ORDERED: GABA-1171 PO (06:19)
[2023-10-04] MEDS ORDERED: AMLO1TAB25 PO (06:19)
[2023-10-04] MEDS ORDERED: METH-1164 PO (06:24)
[2023-10-04] MEDS ORDERED: METH-855 PO (06:24)
[2023-10-04] MEDS ORDERED: FURO20TA2 PO (06:24)
[2023-10-04] MEDS ORDERED: POTA10CA60 PO (06:24)
== END 2023-10-03 20:21 | disposition home or self-care (01) ==
LOC: M ED 17:03
DX: N39.0 Urinary tract infection, site not specified (principal); I50.9 Heart failure, unspecified; I25.10 Atherosclerotic heart disease of native coronary artery without angina pectoris; I10 Essential (primary) hypertension; K21.9 Gastro-esophageal reflux disease without esophagitis; Z86.711 Personal history of pulmonary embolism; Z86.718 Personal history of other venous thrombosis and embolism; G47.33 Obstructive sleep apnea (adult) (pediatric); E78.5 Hyperlipidemia, unspecified; Z87.440 Personal history of urinary (tract) infections; Z86.19 Personal history of other infectious and parasitic diseases; Z79.891 Long term (current) use of opiate analgesic; Z79.02 Long term (current) use of antithrombotics/antiplatelets; Z79.899 Other long term (current) drug therapy; Z88.8 Allergy status to other drugs, medicaments and biological substances

== ENCOUNTER 2023-10-04 04:00 | Inpatient (IN) | payer MEDICARE, OTHER ==
[~2023-10-04] VITALS: Ht 167.6 cm; Wt 87.2 kg
[~2023-10-04 04:00] MED LIST changes: +NITR-67 PO
[2023-10-04] MEDS ORDERED: NS 1,000 ML IV ONE (04:30)
[2023-10-04] MEDS: ONDANSETRON 4MG 2ML VIAL IV ONE (04:35)
[2023-10-04 04:48] LABS: BASO % 0.2 % (0.0-1.0); EOS # 0.1 10^3/uL (0.0-0.5); EOS % 0.3 % (0.0-3.0); HEMATOCRIT 40.3 % (36.0-47.0); HEMOGLOBIN 12.6 g/dl (12.0-15.5); LYMPH # 0.3 10^3/uL (1.5-5.0); LYMPH % 1.4 % (24.0-44.0); MEAN CORPUSCULAR HEMOGLOBIN 30.2 pg (27.0-33.0); MEAN CORPUSCULAR HGB CONC 31.3 g/dl (32.0-36.5); MEAN CORPUSCULAR VOLUME 96.6 fl (80.0-96.0); MONO # 0.5 10^3/uL (0.0-0.8); MONO % 2.8 % (2.0-8.0); NEUTROPHILS # 17.6 10^3/uL (1.5-8.5); NEUTROPHILS % 94.9 % (36.0-66.0); PLATELET COUNT, AUTOMATED 324 10^3/uL (150-450); RED BLOOD COUNT 4.17 10^6/uL (4.00-5.40); WHITE BLOOD COUNT 18.6 10^3/uL (4.0-10.0)
[2023-10-04 05:04] LABS: LIPASE 23 U/L (12-53)
[2023-10-04 05:05] LABS: CK-MB VALUE MASS < 1.0 NG/ML (<3.6)
[2023-10-04 05:07] LABS: INR 1.73; PARTIAL THROMBOPLASTIN TIME 27.8 SECONDS (24.8-34.2); PROTHROMBIN TIME 19.7 SECONDS (12.5-14.5)
[2023-10-04 05:08] LABS: ALBUMIN 3.7 G/DL (3.2-5.2); ALKALINE PHOSPHATASE 127 U/L (46-116); ALT/SGPT < 9 U/L (7.0-40); AST/SGOT 12 U/L (<34); BILIRUBIN,DIRECT 0.3 MG/DL (<0.4); BILIRUBIN,TOTAL 0.9 MG/DL (0.3-1.2); BLOOD UREA NITROGEN 15 MG/DL (9-23); CALCIUM LEVEL 9.3 MG/DL (8.3-10.6); CARBON DIOXIDE LEVEL 24 MMOL/L (20-31); CHLORIDE LEVEL 107 MMOL/L (98-107); CPK CREATINE PHOSPHOKINASE 27 U/L (34-145); CREATININE FOR GFR 0.97 MG/DL (0.55-1.30); GLOMERULAR FILTRATION RATE 58.5 (>32); GLUCOSE, FASTING 149 MG/DL (74-106); POTASSIUM SERUM 4.3 MMOL/L (3.5-5.1); SODIUM LEVEL 142 MMOL/L (136-145); TOTAL PROTEIN 6.3 G/DL (5.7-8.2)
[2023-10-04] MEDS: NS 1,000 ML IV ONE (05:29)
[2023-10-04] MEDS ORDERED: MOM 30ML SUSPENSION UDC PO PRN (05:50)
[2023-10-04] MEDS ORDERED: GABA-1171 PO (06:19)
[2023-10-04] MEDS ORDERED: AMLO1TAB25 PO (06:19)
[2023-10-04] MEDS ORDERED: POTA10CA60 PO (06:24)
[2023-10-04] MEDS ORDERED: METH-1164 PO (06:24)
[2023-10-04] MEDS ORDERED: FURO20TA2 PO (06:24)
[2023-10-04] MEDS ORDERED: METH-855 PO (06:24)
[2023-10-04] MEDS ORDERED: HOME MED LIST COMPLETE! XX SCH (06:25)
[2023-10-04] MEDS: cefTRIAXone SOD 1 GM in D5W MINI-BAG PLUS 50 ML IV SCH (06:26)
[2023-10-04] MEDS: DOCUSATE SODIUM 100MG CAPSULE PO SCH (07:34)
[2023-10-04] MEDS: ACETAMINOPHEN 500 MG TAB PO PRN (07:35)
[2023-10-04 08:50] VITALS: BP 114/55; TEMP 97.5; O2SAT 93
[2023-10-04] MEDS: GABAPENTIN 100 MG CAP PO SCH (09:13)
[2023-10-04] MEDS: PANTOPRAZOLE 40MG TAB (PROTONIX) PO SCH (09:13)
[2023-10-04] MEDS: METOPROLOL TART 25 MG TABLET PO SCH (09:13)
[2023-10-04] MEDS: LEVOTHYROXINE 75MCG TABLET (0.075MG) PO SCH (09:13)
[2023-10-04] MEDS ORDERED: ONDANSETRON 4MG 2ML VIAL IV PRN (10:50)
[2023-10-04] MEDS: VANCOMYCIN 125MG CAPSULE PO SCH (13:26)
[2023-10-04 14:00] VITALS: BP 104/46; TEMP 97.5; O2SAT 95
[2023-10-04] MEDS: NS 1,000 ML IV SCH (16:53)
[2023-10-04] MEDS: LACTOBACILLUS ACIDOPHILUS CAP (BACID) PO SCH (17:43)
[2023-10-04] MEDS: RIVAROXABAN 20MG TAB (XARELTO) PO SCH (17:43)
[2023-10-04] MEDS: ATORVASTATIN 20 MG TAB PO SCH (20:09)
[2023-10-04 20:30] VITALS: BP 107/47; TEMP 97.7; O2SAT 95
[2023-10-05 06:00] VITALS: BP 141/67; TEMP 97.3; O2SAT 97
[2023-10-05 09:44] LABS: BASO % 0.2 % (0.0-1.0); EOS # 0.5 10^3/uL (0.0-0.5); EOS % 6.2 % (0.0-3.0); HEMATOCRIT 35.2 % (36.0-47.0); HEMOGLOBIN 10.7 g/dl (12.0-15.5); LYMPH % 11.8 % (24.0-44.0); MEAN CORPUSCULAR HEMOGLOBIN 29.3 pg (27.0-33.0); MEAN CORPUSCULAR HGB CONC 30.4 g/dl (32.0-36.5); MEAN CORPUSCULAR VOLUME 96.4 fl (80.0-96.0); MONO # 0.5 10^3/uL (0.0-0.8); MONO % 5.8 % (2.0-8.0); NEUTROPHILS # 6.6 10^3/uL (1.5-8.5); NEUTROPHILS % 75.5 % (36.0-66.0); PLATELET COUNT, AUTOMATED 286 10^3/uL (150-450); RED BLOOD COUNT 3.65 10^6/uL (4.00-5.40); WHITE BLOOD COUNT 8.7 10^3/uL (4.0-10.0)
[2023-10-05 10:11] LABS: CALCIUM LEVEL 8.4 MG/DL (8.3-10.6); CREATININE FOR GFR 1.02 MG/DL (0.55-1.30); GLOMERULAR FILTRATION RATE 55.2 (>32); POTASSIUM SERUM 3.8 MMOL/L (3.5-5.1)
[2023-10-05 14:00] VITALS: BP 134/60; TEMP 97.7; O2SAT 95
[2023-10-05] MEDS: DICYCLOMINE 10 MG CAP PO SCH (14:00)
[2023-10-05 20:36] VITALS: BP 147/71; TEMP 97.9; O2SAT 95
[2023-10-05 20:37] VITALS: BP 147/71; TEMP 97.9; O2SAT 95
[2023-10-06 05:22] VITALS: BP 151/76; TEMP 97.3; O2SAT 95
[2023-10-06 08:40] VITALS: BP 178/81
[2023-10-06 08:45] LABS: BLOOD UREA NITROGEN 12 MG/DL (9-23); CALCIUM LEVEL 8.6 MG/DL (8.3-10.6); CARBON DIOXIDE LEVEL 26 MMOL/L (20-31); CHLORIDE LEVEL 109 MMOL/L (98-107); CREATININE FOR GFR 0.81 MG/DL (0.55-1.30); GLOMERULAR FILTRATION RATE > 60.0 (>32); GLUCOSE, FASTING 97 MG/DL (74-106); MAGNESIUM LEVEL 1.5 MG/DL (1.8-2.4); POTASSIUM SERUM 3.9 MMOL/L (3.5-5.1); SODIUM LEVEL 141 MMOL/L (136-145)
[2023-10-06 14:00] VITALS: BP 150/74; TEMP 97.5; O2SAT 93
[2023-10-06] MEDS ORDERED: PROBCAP14 PO (14:02)
[2023-10-06] MEDS ORDERED: VANC1CAP6 PO (14:02)
[2023-10-06] MEDS ORDERED: CEFD1CAP9 PO (14:02)
== END 2023-10-06 16:36 | disposition home or self-care (01) | DRG 872 ==
LOC: M ED 04:00 → EEVIPCON 05:47 → M ED INP 05:47 → M MSPAV 08:41
PROVIDERS: ADMIT Family Medicine; ATTEND Internal Medicine Nephrology
DX: A41.9 Sepsis, unspecified organism (principal); N39.0 Urinary tract infection, site not specified; I13.0 Hypertensive heart and chronic kidney disease with heart failure and stage 1 through stage 4 chronic kidney disease, or unspecified chronic kidney disease; M16.12 Unilateral primary osteoarthritis, left hip; M51.36 Other intervertebral disc degeneration, lumbar region; M48.061 Spinal stenosis, lumbar region without neurogenic claudication; G89.29 Other chronic pain; R19.7 Diarrhea, unspecified; G47.33 Obstructive sleep apnea (adult) (pediatric); K21.9 Gastro-esophageal reflux disease without esophagitis; E78.5 Hyperlipidemia, unspecified; N18.30 Chronic kidney disease, stage 3 unspecified; E55.9 Vitamin D deficiency, unspecified; F41.9 Anxiety disorder, unspecified; E03.9 Hypothyroidism, unspecified; I50.9 Heart failure, unspecified; I25.10 Atherosclerotic heart disease of native coronary artery without angina pectoris; Z86.711 Personal history of pulmonary embolism; Z86.718 Personal history of other venous thrombosis and embolism; Z90.49 Acquired absence of other specified parts of digestive tract; Z90.79 Acquired absence of other genital organ(s); Z96.641 Presence of right artificial hip joint; Z98.41 Cataract extraction status, right eye; Z98.42 Cataract extraction status, left eye; Z79.891 Long term (current) use of opiate analgesic; Z79.890 Hormone replacement therapy; Z79.899 Other long term (current) drug therapy; Z88.8 Allergy status to other drugs, medicaments and biological substances; Z11.52 Encounter for screening for COVID-19

== ENCOUNTER 2023-10-08 16:24 | Inpatient (IN) | payer MEDICARE, OTHER ==
[~2023-10-08] VITALS: Ht 168.9 cm; Wt 75.0 kg
[~2023-10-08 16:24] MED LIST changes: +AMLO1TAB25 PO; +CEFD1CAP9 PO; +METH-855 PO; +POTA10CA60 PO; +PROBCAP14 PO
[2023-10-08 19:31] VITALS: BP 111/74; TEMP 97.3; O2SAT 96
[2023-10-08] MEDS ORDERED: CEFEPIME HCL 2 GM in D5W MINI-BAG PLUS 50 ML IV SCH (20:20)
[2023-10-08] MEDS ORDERED: PROB250C PO (20:27)
[2023-10-08] MEDS ORDERED: C 50TAB PO (20:27)
[2023-10-08] MEDS ORDERED: ESTR0.1C5 TOP (20:27)
[2023-10-08] MEDS ORDERED: HOME MED LIST COMPLETE! XX SCH (20:30)
[2023-10-08 20:57] LABS: HEMATOCRIT 35.1 % (36.0-47.0); HEMOGLOBIN 10.9 g/dl (12.0-15.5); MEAN CORPUSCULAR HEMOGLOBIN 29.9 pg (27.0-33.0); MEAN CORPUSCULAR HGB CONC 31.1 g/dl (32.0-36.5); MEAN CORPUSCULAR VOLUME 96.4 fl (80.0-96.0); PLATELET COUNT, AUTOMATED 302 10^3/uL (150-450); RED BLOOD COUNT 3.64 10^6/uL (4.00-5.40); WHITE BLOOD COUNT 8.2 10^3/uL (4.0-10.0)
[2023-10-08] MEDS: ATORVASTATIN 20 MG TAB PO SCH (21:00)
[2023-10-08] MEDS: GABAPENTIN 100 MG CAP PO SCH (21:00)
[2023-10-08] MEDS: ESCITALOPRAM OXALATE 10 MG TAB (LEXAPRO) PO SCH (21:00)
[2023-10-08 21:18] LABS: ALKALINE PHOSPHATASE 95 U/L (46-116); ALT/SGPT < 9 U/L (7.0-40); AST/SGOT 10 U/L (<34); BILIRUBIN,TOTAL 0.2 MG/DL (0.3-1.2); BLOOD UREA NITROGEN 10 MG/DL (9-23); CALCIUM LEVEL 8.9 MG/DL (8.3-10.6); CARBON DIOXIDE LEVEL 27 MMOL/L (20-31); CHLORIDE LEVEL 112 MMOL/L (98-107); CREATININE FOR GFR 0.85 MG/DL (0.55-1.30); GLOMERULAR FILTRATION RATE > 60.0 (>32); GLUCOSE, FASTING 106 MG/DL (74-106); PHOSPHORUS LEVEL 2.6 MG/DL (2.4-5.1); POTASSIUM SERUM 3.9 MMOL/L (3.5-5.1); SODIUM LEVEL 143 MMOL/L (136-145); TOTAL PROTEIN 5.5 G/DL (5.7-8.2)
[2023-10-08] MEDS ORDERED: PILL CUTTER 1 EACH XX PRN (21:45)
[2023-10-08] MEDS: CEFEPIME HCL 1 GM in D5W MINI-BAG PLUS 50 ML IV SCH (22:03)
[2023-10-08] MEDS: NS 500 ML IV ONE (22:32)
[2023-10-09 06:22] VITALS: BP_SYST 134; BP_SYST 154; BP_DIAS 75; BP_DIAS 85; TEMP 97.5; O2SAT 97
[2023-10-09] MEDS: LEVOTHYROXINE 75MCG TABLET (0.075MG) PO SCH (06:31)
[2023-10-09] MEDS ORDERED: DICYCLOMINE 10 MG CAP PO PRN (07:40)
[2023-10-09] MEDS ORDERED: FUROSEMIDE 10MG PER 1/2 TABLET PO SCH (09:00)
[2023-10-09] MEDS: PANTOPRAZOLE 40MG TAB (PROTONIX) PO SCH (11:17)
[2023-10-09] MEDS: FUROSEMIDE 20 MG TAB PO SCH (11:17)
[2023-10-09] MEDS: VANCOMYCIN 125MG CAPSULE PO SCH (11:17)
[2023-10-09] MEDS: METOPROLOL TART 25 MG TABLET PO SCH (11:28)
[2023-10-09] MEDS: LACTOBACILLUS ACIDOPHILUS CAP (BACID) PO SCH (11:28)
[2023-10-09 14:00] VITALS: BP 146/69; TEMP 97.7; O2SAT 98
[2023-10-09] MEDS: RIVAROXABAN 20MG TAB (XARELTO) PO SCH (17:10)
[2023-10-09 21:13] VITALS: BP 153/79; TEMP 97.9; O2SAT 97
[2023-10-10 05:58] VITALS: BP 162/75; TEMP 98.4; O2SAT 96
[2023-10-10 14:00] VITALS: BP 134/74; TEMP 97.7; O2SAT 96
[2023-10-10] MEDS: DICYCLOMINE 10 MG CAP PO SCH (14:05)
[2023-10-10] MEDS: FAMOTIDINE 20 MG TAB PO SCH (22:04)
[2023-10-11 05:25] VITALS: BP 143/77; TEMP 97.5; O2SAT 96
[2023-10-11 08:23] LABS: BASO # 0.1 10^3/uL (0.0-0.2); BASO % 0.6 % (0.0-1.0); EOS # 0.5 10^3/uL (0.0-0.5); EOS % 5.5 % (0.0-3.0); HEMATOCRIT 38.5 % (36.0-47.0); HEMOGLOBIN 11.8 g/dl (12.0-15.5); LYMPH # 1.7 10^3/uL (1.5-5.0); LYMPH % 20.3 % (24.0-44.0); MEAN CORPUSCULAR HEMOGLOBIN 29.1 pg (27.0-33.0); MEAN CORPUSCULAR HGB CONC 30.6 g/dl (32.0-36.5); MEAN CORPUSCULAR VOLUME 95.1 fl (80.0-96.0); MONO # 0.6 10^3/uL (0.0-0.8); MONO % 7.1 % (2.0-8.0); NEUTROPHILS # 5.4 10^3/uL (1.5-8.5); NEUTROPHILS % 66.1 % (36.0-66.0); PLATELET COUNT, AUTOMATED 327 10^3/uL (150-450); RED BLOOD COUNT 4.05 10^6/uL (4.00-5.40); WHITE BLOOD COUNT 8.2 10^3/uL (4.0-10.0)
[2023-10-11 08:55] LABS: C REACTIVE PROTEIN QUANTITATIV < 0.40 MG/DL (<1.0)
[2023-10-11 08:57] LABS: BLOOD UREA NITROGEN 11 MG/DL (9-23); CALCIUM LEVEL 8.9 MG/DL (8.3-10.6); CARBON DIOXIDE LEVEL 28 MMOL/L (20-31); CHLORIDE LEVEL 110 MMOL/L (98-107); CREATININE FOR GFR 0.78 MG/DL (0.55-1.30); GLOMERULAR FILTRATION RATE > 60.0 (>32); GLUCOSE, FASTING 93 MG/DL (74-106); SODIUM LEVEL 141 MMOL/L (136-145)
[2023-10-11] MEDS: ONDANSETRON 4MG 2ML VIAL IV PRN (10:30)
[2023-10-11 14:00] VITALS: BP 143/62; TEMP 98.1; O2SAT 96
[2023-10-11 20:03] VITALS: BP 136/66; TEMP 97.9; O2SAT 96
[2023-10-11] MEDS: METHENAMINE HIPPURATE 1GM TABLET PO SCH (20:12)
[2023-10-11 21:00] VITALS: O2SAT 95
[2023-10-11] MEDS: ACETAMINOPHEN TAB 650MG DOSE (2X325MG) PO PRN (21:16)
[2023-10-12 05:54] VITALS: BP 140/66; TEMP 97.5; O2SAT 96
[2023-10-12 06:14] LABS: BASO # 0.1 10^3/uL (0.0-0.2); BASO % 0.8 % (0.0-1.0); EOS # 0.4 10^3/uL (0.0-0.5); EOS % 5.9 % (0.0-3.0); HEMATOCRIT 34.2 % (36.0-47.0); HEMOGLOBIN 10.5 g/dl (12.0-15.5); LYMPH # 1.6 10^3/uL (1.5-5.0); LYMPH % 20.8 % (24.0-44.0); MEAN CORPUSCULAR HEMOGLOBIN 29.2 pg (27.0-33.0); MEAN CORPUSCULAR HGB CONC 30.7 g/dl (32.0-36.5); MEAN CORPUSCULAR VOLUME 95.3 fl (80.0-96.0); MONO # 0.7 10^3/uL (0.0-0.8); MONO % 9.9 % (2.0-8.0); NEUTROPHILS # 4.6 10^3/uL (1.5-8.5); NEUTROPHILS % 62.5 % (36.0-66.0); PLATELET COUNT, AUTOMATED 298 10^3/uL (150-450); RED BLOOD COUNT 3.59 10^6/uL (4.00-5.40); WHITE BLOOD COUNT 7.4 10^3/uL (4.0-10.0)
[2023-10-12 06:40] LABS: BLOOD UREA NITROGEN 12 MG/DL (9-23); CALCIUM LEVEL 8.7 MG/DL (8.3-10.6); CARBON DIOXIDE LEVEL 31 MMOL/L (20-31); CHLORIDE LEVEL 109 MMOL/L (98-107); CREATININE FOR GFR 0.92 MG/DL (0.55-1.30); GLOMERULAR FILTRATION RATE > 60.0 (>32); GLUCOSE, FASTING 91 MG/DL (74-106); SODIUM LEVEL 142 MMOL/L (136-145)
[2023-10-12] MEDS: ASCORBIC ACID 500 MG TAB PO SCH (11:49)
[2023-10-12 12:15] LABS: APPEARANCE, URINE HAZY (CLEAR); BACTERIA, URINE AUTO NEGATIVE (NEGATIVE); BILIRUBIN, URINE AUTO NEGATIVE (NEGATIVE); BLOOD, URINE BLOOD NEGATIVE (NEGATIVE); COLOR, URINE YELLOW (YELLOW); GLUCOSE, URINE (UA) AUTO NEGATIVE (NEGATIVE); KETONE, URINE AUTO NEGATIVE (NEGATIVE); LEUKOCYTE ESTERASE, URINE AUTO TRACE (NEGATIVE); MUCUS, URINE SMALL (NEGATIVE); NITRITE, URINE AUTO NEGATIVE (NEGATIVE); PROTEIN, URINE AUTO 1+ mg/dL (NEGATIVE); RBC, URINE AUTO 1 /HPF (0-3); SPECIFIC GRAVITY URINE AUTO 1.015 (1.002-1.035); SQUAMOUS EPITHELIAL CELL UR AU 3 /HPF (0-6); UROBILINOGEN, URINE AUTO 0.2 mg/dL (0.0-2.0); WBC, URINE AUTO 4 /HPF (0-3)
[2023-10-12 14:00] VITALS: BP 123/69; TEMP 97.5; O2SAT 93
[2023-10-12 20:50] VITALS: BP 144/62; TEMP 96.6; O2SAT 93
[2023-10-13 06:00] VITALS: BP 146/62; TEMP 97; O2SAT 97
[2023-10-13 06:41] LABS: BASO # 0.1 10^3/uL (0.0-0.2); BASO % 0.7 % (0.0-1.0); EOS # 0.5 10^3/uL (0.0-0.5); EOS % 6.2 % (0.0-3.0); HEMATOCRIT 34.1 % (36.0-47.0); HEMOGLOBIN 10.4 g/dl (12.0-15.5); LYMPH # 1.6 10^3/uL (1.5-5.0); LYMPH % 21.2 % (24.0-44.0); MEAN CORPUSCULAR HEMOGLOBIN 29.3 pg (27.0-33.0); MEAN CORPUSCULAR HGB CONC 30.5 g/dl (32.0-36.5); MEAN CORPUSCULAR VOLUME 96.1 fl (80.0-96.0); MONO # 0.6 10^3/uL (0.0-0.8); MONO % 8.2 % (2.0-8.0); NEUTROPHILS # 4.8 10^3/uL (1.5-8.5); NEUTROPHILS % 63.3 % (36.0-66.0); PLATELET COUNT, AUTOMATED 292 10^3/uL (150-450); RED BLOOD COUNT 3.55 10^6/uL (4.00-5.40); WHITE BLOOD COUNT 7.5 10^3/uL (4.0-10.0)
[2023-10-13 07:20] LABS: BLOOD UREA NITROGEN 13 MG/DL (9-23); CALCIUM LEVEL 8.9 MG/DL (8.3-10.6); CARBON DIOXIDE LEVEL 29 MMOL/L (20-31); CHLORIDE LEVEL 109 MMOL/L (98-107); CREATININE FOR GFR 0.86 MG/DL (0.55-1.30); GLOMERULAR FILTRATION RATE > 60.0 (>32); GLUCOSE, FASTING 86 MG/DL (74-106); POTASSIUM SERUM 4.2 MMOL/L (3.5-5.1); SODIUM LEVEL 144 MMOL/L (136-145)
[2023-10-13 08:49] VITALS: BP 152/65
[2023-10-13] MEDS ORDERED: ASCO50TA PO (10:14)
[2023-10-13] MEDS ORDERED: VANC1CAP6 PO (10:14)
[2023-10-13] MEDS ORDERED: DICY1CAP8 PO (10:14)
== END 2023-10-13 12:01 | disposition home or self-care (01) | DRG 690 ==
LOC: M MSPAV 18:54
PROVIDERS: ADMIT Internal Medicine Nephrology; ATTEND General Practice
DX: N39.0 Urinary tract infection, site not specified (principal); I13.0 Hypertensive heart and chronic kidney disease with heart failure and stage 1 through stage 4 chronic kidney disease, or unspecified chronic kidney disease; I50.32 Chronic diastolic (congestive) heart failure; G47.33 Obstructive sleep apnea (adult) (pediatric); K21.9 Gastro-esophageal reflux disease without esophagitis; N18.30 Chronic kidney disease, stage 3 unspecified; E03.9 Hypothyroidism, unspecified; E78.5 Hyperlipidemia, unspecified; I25.10 Atherosclerotic heart disease of native coronary artery without angina pectoris; G89.29 Other chronic pain; E55.9 Vitamin D deficiency, unspecified; F41.9 Anxiety disorder, unspecified; K58.0 Irritable bowel syndrome with diarrhea; M51.36 Other intervertebral disc degeneration, lumbar region; M48.061 Spinal stenosis, lumbar region without neurogenic claudication; Z90.49 Acquired absence of other specified parts of digestive tract; Z96.643 Presence of artificial hip joint, bilateral; Z86.711 Personal history of pulmonary embolism; Z86.718 Personal history of other venous thrombosis and embolism; B95.2 Enterococcus as the cause of diseases classified elsewhere; Z79.890 Hormone replacement therapy; Z79.899 Other long term (current) drug therapy; Z88.8 Allergy status to other drugs, medicaments and biological substances

== ENCOUNTER → 2023-10-29 | Outpatient (CLI) | payer MEDICARE, OTHER ==
[~2023-10-29] MED LIST changes: +C 50TAB PO; +DICY1CAP8 PO; +ESTR0.1C5 TOP; +PROB250C PO
== END ==
LOC: M SOG 08:36
PROVIDERS: ATTEND Orthopaedic Surgery
DX: Z96.643 Presence of artificial hip joint, bilateral (principal)

== ENCOUNTER → 2023-11-26 | Outpatient (CLI) | payer MEDICARE, OTHER ==
[~2023-11-26] MED LIST changes: -POTA10CA60 PO; +POTA10CA70 PO
== END ==
LOC: M WHC 13:49
PROVIDERS: ATTEND Family Medicine
DX: Z12.31 Encounter for screening mammogram for malignant neoplasm of breast (principal); R92.323 Mammographic fibroglandular density, bilateral breasts

== ENCOUNTER 2023-12-08 11:47 | Emergency (ER) | payer MEDICARE, OTHER ==
[~2023-12-08] VITALS: Ht 167.6 cm; Wt 82.3 kg
[2023-12-08 12:18] LABS: BASO % 0.5 % (0.0-1.0); EOS # 0.2 10^3/uL (0.0-0.5); EOS % 2.8 % (0.0-3.0); HEMATOCRIT 42.7 % (36.0-47.0); HEMOGLOBIN 13.1 g/dl (12.0-15.5); LYMPH # 1.1 10^3/uL (1.5-5.0); LYMPH % 14.3 % (24.0-44.0); MEAN CORPUSCULAR HEMOGLOBIN 27.2 pg (27.0-33.0); MEAN CORPUSCULAR HGB CONC 30.7 g/dl (32.0-36.5); MEAN CORPUSCULAR VOLUME 88.6 fl (80.0-96.0); MONO # 0.7 10^3/uL (0.0-0.8); MONO % 8.7 % (2.0-8.0); NEUTROPHILS # 5.7 10^3/uL (1.5-8.5); NEUTROPHILS % 73.4 % (36.0-66.0); PLATELET COUNT, AUTOMATED 303 10^3/uL (150-450); RED BLOOD COUNT 4.82 10^6/uL (4.00-5.40); WHITE BLOOD COUNT 7.8 10^3/uL (4.0-10.0)
[2023-12-08] MEDS ORDERED: GABA-282 PO ×2 (12:26)
[2023-12-08] MEDS ORDERED: ARIP1TAB6 (12:26)
[2023-12-08] MEDS ORDERED: XARE20TA PO (12:26)
[2023-12-08] MEDS ORDERED: ESTR0.1C5 VG (12:26)
[2023-12-08 12:43] LABS: LIPASE 27 U/L (12-53)
[2023-12-08 12:45] LABS: ALBUMIN 3.5 G/DL (3.2-5.2); ALKALINE PHOSPHATASE 139 U/L (46-116); ALT/SGPT 12 U/L (7.0-40); AST/SGOT 10 U/L (<34); BILIRUBIN,DIRECT 0.2 MG/DL (<0.4); BILIRUBIN,TOTAL 0.6 MG/DL (0.3-1.2); BLOOD UREA NITROGEN 12 MG/DL (9-23); CALCIUM LEVEL 9.4 MG/DL (8.3-10.6); CARBON DIOXIDE LEVEL 28 MMOL/L (20-31); CHLORIDE LEVEL 104 MMOL/L (98-107); CK-MB VALUE MASS < 1.0 NG/ML (<3.6); CREATININE FOR GFR 0.93 MG/DL (0.55-1.30); GLOMERULAR FILTRATION RATE > 60.0 (>32); GLUCOSE, FASTING 96 MG/DL (74-106); SODIUM LEVEL 140 MMOL/L (136-145); TOTAL PROTEIN 6.5 G/DL (5.7-8.2)
[2023-12-08 12:46] LABS: CPK CREATINE PHOSPHOKINASE 31 U/L (34-145); MB/CK RELATIVE INDEX 3.22 (< OR =4)
[2023-12-08] MEDS ORDERED: ISOVUE-370 76% 100ML VIAL As Ordered ONE (12:51)
[2023-12-08 13:33] VITALS: BP 205/90
[2023-12-08] MEDS: METOPROLOL TART 25 MG TABLET PO ONE (13:33)
[2023-12-08 13:43] LABS: CK-MB VALUE MASS < 1.0 NG/ML (<3.6)
[2023-12-08 13:49] LABS: CPK CREATINE PHOSPHOKINASE 27 U/L (34-145)
[2023-12-08 15:18] VITALS: O2SAT 93
[2023-12-08 15:31] VITALS: BP 161/69; O2SAT 96
[2023-12-08 16:13] VITALS: TEMP 99.5
== END 2023-12-08 16:14 | disposition home or self-care (01) ==
LOC: EDBD 11:47 → M ED 11:47
DX: I44.7 Left bundle-branch block, unspecified (principal); I12.9 Hypertensive chronic kidney disease with stage 1 through stage 4 chronic kidney disease, or unspecified chronic kidney disease; R05.9 Cough, unspecified; F41.9 Anxiety disorder, unspecified; F32.9 Major depressive disorder, single episode, unspecified; E55.9 Vitamin D deficiency, unspecified; G47.30 Sleep apnea, unspecified; M54.9 Dorsalgia, unspecified; Z86.711 Personal history of pulmonary embolism; Z79.899 Other long term (current) drug therapy; Z88.8 Allergy status to other drugs, medicaments and biological substances
CPT/HCPCS: 71045; 71275; 80048; 80076; 82550; 82553; 83690; 84484; 85025; 87486; 87581; 87633; 87798; 93005; 93041; 94760; 99285; Q9967

== ENCOUNTER → 2023-12-10 | Outpatient (CLI) | payer MEDICARE, OTHER ==
[~2023-12-10] MED LIST changes: +ARIP1TAB6; +ESTR0.1C5 VG; +GABA-282 PO
== END ==
LOC: M RAD 10:14
PROVIDERS: ATTEND Specialist
DX: N39.0 Urinary tract infection, site not specified (principal); I11.0 Hypertensive heart disease with heart failure; I50.20 Unspecified systolic (congestive) heart failure

== ENCOUNTER → 2023-12-10 | Outpatient (CLI) | payer MEDICARE, OTHER ==
[2023-12-10 11:59] LABS: ALBUMIN 3.2 G/DL (3.2-5.2); BILIRUBIN,TOTAL 0.4 MG/DL (0.3-1.2); CALCIUM LEVEL 9.1 MG/DL (8.3-10.6); CREATININE FOR GFR 1.41 MG/DL (0.55-1.30); POTASSIUM SERUM 3.9 MMOL/L (3.5-5.1); TOTAL PROTEIN 6.1 G/DL (5.7-8.2)
== END ==
LOC: M LAB 10:21
PROVIDERS: ATTEND Family Medicine
DX: I11.0 Hypertensive heart disease with heart failure (principal); I50.20 Unspecified systolic (congestive) heart failure

== ENCOUNTER → 2023-12-21 | Outpatient (REF) | payer MEDICARE, OTHER ==
[~2023-12-21] MED LIST changes: +ONDA-282 PO; -ONDA4TAB6 PO
[2023-12-21 16:42] LABS: APPEARANCE, URINE HAZY (CLEAR); BACTERIA, URINE AUTO 1+ (NEGATIVE); BILIRUBIN, URINE AUTO NEGATIVE (NEGATIVE); BLOOD, URINE BLOOD 3+ (NEGATIVE); COLOR, URINE YELLOW (YELLOW); GLUCOSE, URINE (UA) AUTO NEGATIVE (NEGATIVE); KETONE, URINE AUTO NEGATIVE (NEGATIVE); LEUKOCYTE ESTERASE, URINE AUTO TRACE (NEGATIVE); NITRITE, URINE AUTO NEGATIVE (NEGATIVE); PROTEIN, URINE AUTO NEGATIVE (NEGATIVE); RBC, URINE AUTO 100 /HPF (0-3); SPECIFIC GRAVITY URINE AUTO 1.008 (1.002-1.035); SQUAMOUS EPITHELIAL CELL UR AU 1 /HPF (0-6); UROBILINOGEN, URINE AUTO 0.2 mg/dL (0.0-2.0); WBC, URINE AUTO 12 /HPF (0-3)
== END ==
LOC: M SFHCPLAZ 15:58
PROVIDERS: ATTEND Internal Medicine Infectious Disease
DX: A49.8 Other bacterial infections of unspecified site (principal)

== ENCOUNTER → 2024-01-24 | Outpatient (REF) | payer MEDICARE, OTHER | LOC: M SFHCWAGY 17:05 | PROVIDERS: ATTEND Nurse Practitioner Family | DX: N39.0 Urinary tract infection, site not specified (principal) ==

== ENCOUNTER → 2024-03-23 | Outpatient (CLI) | payer MEDICARE, OTHER | LOC: M SOG 15:22 | PROVIDERS: ATTEND Orthopaedic Surgery | DX: M47.816 Spondylosis without myelopathy or radiculopathy, lumbar region (principal); M54.50 Low back pain, unspecified; Z96.642 Presence of left artificial hip joint ==

== ENCOUNTER → 2024-05-03 | Outpatient (REF) | payer MEDICARE, OTHER ==
[~2024-05-03] MED LIST changes: +GABA-1172 PO; -GABA-282 PO
== END ==
LOC: M SFHCWAGY 17:08
PROVIDERS: ATTEND Nurse Practitioner Family
DX: N73.9 Female pelvic inflammatory disease, unspecified (principal); R30.0 Dysuria

== ENCOUNTER 2024-08-07 18:33 | Inpatient (IN) | payer MEDICARE, OTHER ==
[~2024-08-07] VITALS: Ht 167.6 cm; Wt 80.1 kg
[~2024-08-07 18:33] MED LIST changes: -ARIP1TAB6; +ARIP1TAB6 PO
[2024-08-07 19:27] LABS: BASO % 0.6 % (0.0-1.0); EOS # 0.1 10^3/uL (0.0-0.5); EOS % 2.2 % (0.0-3.0); HEMATOCRIT 44.6 % (36.0-47.0); HEMOGLOBIN 14.3 g/dl (12.0-15.5); LYMPH # 1.1 10^3/uL (1.5-5.0); LYMPH % 16.1 % (24.0-44.0); MEAN CORPUSCULAR HEMOGLOBIN 29.7 pg (27.0-33.0); MEAN CORPUSCULAR HGB CONC 32.1 g/dl (32.0-36.5); MEAN CORPUSCULAR VOLUME 92.7 fl (80.0-96.0); MONO # 0.8 10^3/uL (0.0-0.8); MONO % 11.8 % (2.0-8.0); NEUTROPHILS # 4.5 10^3/uL (1.5-8.5); NEUTROPHILS % 69.1 % (36.0-66.0); PLATELET COUNT, AUTOMATED 187 10^3/uL (150-450); RED BLOOD COUNT 4.81 10^6/uL (4.00-5.40); WHITE BLOOD COUNT 6.5 10^3/uL (4.0-10.0)
[2024-08-07 19:51] LABS: ALBUMIN 3.2 G/DL (3.2-5.2); BILIRUBIN,DIRECT 0.2 MG/DL (<0.4); BILIRUBIN,TOTAL 0.6 MG/DL (0.3-1.2); CALCIUM LEVEL 8.9 MG/DL (8.3-10.6); CREATININE FOR GFR 1.04 MG/DL (0.55-1.30); GLOMERULAR FILTRATION RATE 53.9 (>32); TOTAL PROTEIN 6.4 G/DL (5.7-8.2)
[2024-08-07 19:53] LABS: THYROID STIMULATING HORMONE 0.166 uIU/ML (0.55-4.78); THYROXINE (T4) 12.7 UG/DL (4.5-10.9)
[2024-08-07 20:03] LABS: PROCALCITONIN 0.09 ng/ml
[2024-08-07 20:28] LABS: ABG BASE EXCESS -2.3 (-2.0-2.0); ABG HCO3 22.2 MMOL/L (22.0-26.0); ABG O2 SATURATION 97.2 % (95.0-99.0); ABG PARTIAL PRESSURE CO2 37.4 mmHg (35.0-45.0); ABG PARTIAL PRESSURE O2 99.6 mmHg (75.0-100.0); ABG STANDARD HCO3 22.6 MMOL/L. (22.0-26.0); ABG TOTAL CO2 23.3 MMOL/L (23.0-31.0); ABG pH (ARTERIAL) 7.391 UNITS (7.350-7.450)
[2024-08-07] MEDS: ALBUTEROL SULFATE 2.5MG/0.5ML INH NEB SOLN NEB ONE (22:42)
[2024-08-07] MEDS ORDERED: FURO20TA2 PO (22:58)
[2024-08-07] MEDS ORDERED: DOCU100C16 PO (22:58)
[2024-08-07] MEDS ORDERED: HOME MED LIST COMPLETE! XX SCH (23:00)
[2024-08-07] MEDS ORDERED: MAALOX 30 ML SUSP *UDC PO PRN (23:00)
[2024-08-07] MEDS ORDERED: LEVALBUTEROL 1.25MG 0.5ML CONCENTRATE NEB INH PRN (23:00)
[2024-08-07] MEDS ORDERED: ONDANSETRON 4MG ORAL DISINTEGRATING TAB PO PRN (23:00)
[2024-08-07] MEDS ORDERED: DOCUSATE SODIUM 100MG CAPSULE PO PRN (23:00)
[2024-08-07] MEDS ORDERED: MOM 30ML SUSPENSION UDC PO PRN (23:00)
[2024-08-07] MEDS: FUROSEMIDE 20MG/2ML VIAL IV ONE (23:50)
[2024-08-07] MEDS: PANTOPRAZOLE 40MG TAB (PROTONIX) PO SCH (23:51)
[2024-08-07] MEDS: GABAPENTIN 100 MG CAP PO SCH (23:51)
[2024-08-07] MEDS: METOPROLOL TART 25 MG TABLET PO SCH (23:51)
[2024-08-07] MEDS: POTASSIUM CHLORIDE 10MEQ SR TABLET PO SCH (23:51)
[2024-08-07] MEDS: METHENAMINE HIPPURATE 1GM TABLET PO SCH (23:52)
[2024-08-08 00:17] LABS: MAGNESIUM LEVEL 1.5 MG/DL (1.8-2.4)
[2024-08-08 01:07] LABS: INR 1.19; PARTIAL THROMBOPLASTIN TIME 26.9 SECONDS (24.8-34.2); PROTHROMBIN TIME 15.4 SECONDS (12.5-14.5)
[2024-08-08] MEDS: ACETAMINOPHEN 325 MG TAB PO PRN (02:41)
[2024-08-08 02:43] LABS: KETONE, URINE AUTO RFX NEGATIVE (NEGATIVE); LEUKOCYTE ESTERASE UR AUTO RFX NEGATIVE (NEGATIVE); NITRITE, URINE AUTO RFX NEGATIVE (NEGATIVE); RBC, URINE AUTO RFX 0 /HPF (0-3); SQUAM EPITHELIAL CELL UR AURFX 0 /HPF (0-6); WBC, URINE AUTO RFX 1 /HPF (0-3)
[2024-08-08] MEDS: LEVOTHYROXINE 75MCG TABLET (0.075MG) PO SCH (05:50)
[2024-08-08] MEDS ORDERED: ALBUTEROL SULFATE 2.5MG/0.5ML INH NEB SOLN NEB PRN (07:10)
[2024-08-08] MEDS: ASCORBIC ACID 500 MG TAB PO SCH (08:02)
[2024-08-08] MEDS: RIVAROXABAN 20MG TAB (XARELTO) PO SCH (08:02)
[2024-08-08] MEDS: ESCITALOPRAM OXALATE 10 MG TAB (LEXAPRO) PO SCH (08:02)
[2024-08-08] MEDS: ATORVASTATIN 20 MG TAB PO SCH (08:03)
[2024-08-08] MEDS: LACTOBACILLUS ACIDOPHILUS CAP (BACID) PO SCH (08:03)
[2024-08-08] MEDS: FUROSEMIDE 20 MG TAB PO SCH (08:04)
[2024-08-08 08:26] LABS: HEMATOCRIT 42.3 % (36.0-47.0); MEAN CORPUSCULAR HEMOGLOBIN 28.8 pg (27.0-33.0); MEAN CORPUSCULAR HGB CONC 30.7 g/dl (32.0-36.5); MEAN CORPUSCULAR VOLUME 93.6 fl (80.0-96.0); PLATELET COUNT, AUTOMATED 157 10^3/uL (150-450); RED BLOOD COUNT 4.52 10^6/uL (4.00-5.40)
[2024-08-08] MEDS: IPRATROPIUM 0.5MG/ALBUTEROL 2.5MG INH SOL UD 3ML (DUONEB) NEB SCH (08:41)
[2024-08-08 09:04] LABS: ALBUMIN 2.8 G/DL (3.2-5.2); BILIRUBIN,TOTAL 0.6 MG/DL (0.3-1.2); CALCIUM LEVEL 8.3 MG/DL (8.3-10.6); CREATININE FOR GFR 1.07 MG/DL (0.55-1.30); GLOMERULAR FILTRATION RATE 52.1 (>32); MAGNESIUM LEVEL 1.6 MG/DL (1.8-2.4); POTASSIUM SERUM 4.7 MMOL/L (3.5-5.1); TOTAL PROTEIN 5.6 G/DL (5.7-8.2)
[2024-08-08] MEDS: MAGNESIUM OXIDE 400MG TAB (MAG-OX) PO SCH (13:10)
[2024-08-08] MEDS: MAG SULF 1GM/100ML (MAG RUN) 1 GM in IV 1 EA IV SCH (13:11)
[2024-08-08] MEDS: predniSONE 20 MG TAB PO SCH (13:24)
[2024-08-08 15:27] VITALS: O2SAT 94
[2024-08-08 19:01] VITALS: BP 152/80
[2024-08-08 20:29] VITALS: BP 132/69; TEMP 98.8; O2SAT 96
[2024-08-08 23:40] VITALS: BP 110/70; TEMP 97.5; O2SAT 98
[2024-08-09] VITALS (9 sets, daily range): BP systolic 107–144; BP diastolic 51–80; TEMP 97.2–97.9; O2SAT 93–99
[2024-08-09 05:22] LABS: HEMATOCRIT 42.9 % (36.0-47.0); HEMOGLOBIN 13.7 g/dl (12.0-15.5); MEAN CORPUSCULAR HEMOGLOBIN 29.5 pg (27.0-33.0); MEAN CORPUSCULAR HGB CONC 31.9 g/dl (32.0-36.5); MEAN CORPUSCULAR VOLUME 92.3 fl (80.0-96.0); PLATELET COUNT, AUTOMATED 171 10^3/uL (150-450); RED BLOOD COUNT 4.65 10^6/uL (4.00-5.40); WHITE BLOOD COUNT 4.7 10^3/uL (4.0-10.0)
[2024-08-09 05:51] LABS: ALBUMIN 2.7 G/DL (3.2-5.2); ALKALINE PHOSPHATASE 94 U/L (35-104); ALT/SGPT 10 U/L (7.0-40); AST/SGOT 13 U/L (<34); BILIRUBIN,TOTAL 0.5 MG/DL (0.3-1.2); BLOOD UREA NITROGEN 20 MG/DL (9-23); CALCIUM LEVEL 9.1 MG/DL (8.3-10.6); CARBON DIOXIDE LEVEL 28 MMOL/L (20-31); CHLORIDE LEVEL 105 MMOL/L (98-107); GLOMERULAR FILTRATION RATE > 60.0 (>32); GLUCOSE, FASTING 143 MG/DL (74-106); MAGNESIUM LEVEL 2.2 MG/DL (1.8-2.4); POTASSIUM SERUM 4.5 MMOL/L (3.5-5.1); SODIUM LEVEL 143 MMOL/L (136-145); TOTAL PROTEIN 5.9 G/DL (5.7-8.2)
[2024-08-09] MEDS: MAGNESIUM OXIDE 400MG TAB (MAG-OX) PO SCH (09:30)
[2024-08-10 03:32] VITALS: BP 125/65; TEMP 97.9; O2SAT 94
[2024-08-10 05:09] LABS: HEMATOCRIT 39.9 % (36.0-47.0); HEMOGLOBIN 12.8 g/dl (12.0-15.5); MEAN CORPUSCULAR HEMOGLOBIN 29.2 pg (27.0-33.0); MEAN CORPUSCULAR HGB CONC 32.1 g/dl (32.0-36.5); MEAN CORPUSCULAR VOLUME 91.1 fl (80.0-96.0); PLATELET COUNT, AUTOMATED 180 10^3/uL (150-450); RED BLOOD COUNT 4.38 10^6/uL (4.00-5.40); WHITE BLOOD COUNT 10.2 10^3/uL (4.0-10.0)
[2024-08-10 05:42] LABS: ALBUMIN 2.6 G/DL (3.2-5.2); ALKALINE PHOSPHATASE 82 U/L (35-104); ALT/SGPT 10 U/L (7.0-40); AST/SGOT 13 U/L (<34); BILIRUBIN,TOTAL 0.2 MG/DL (0.3-1.2); BLOOD UREA NITROGEN 30 MG/DL (9-23); CARBON DIOXIDE LEVEL 29 MMOL/L (20-31); CHLORIDE LEVEL 106 MMOL/L (98-107); CREATININE FOR GFR 0.92 MG/DL (0.55-1.30); GLOMERULAR FILTRATION RATE > 60.0 (>32); GLUCOSE, FASTING 112 MG/DL (74-106); POTASSIUM SERUM 4.7 MMOL/L (3.5-5.1); SODIUM LEVEL 142 MMOL/L (136-145); TOTAL PROTEIN 5.5 G/DL (5.7-8.2)
[2024-08-10 07:15] VITALS: O2SAT 94
[2024-08-10 08:00] VITALS: BP 141/85; TEMP 97.5; O2SAT 97
[2024-08-10 08:52] VITALS: BP 141/85
[2024-08-10 12:00] VITALS: BP 136/68; TEMP 97.9; O2SAT 98
[2024-08-10] MEDS ORDERED: PRED20TA PO (16:04)
== END 2024-08-10 17:53 | disposition home or self-care (01) | DRG 152 ==
LOC: EDBD 18:33 → M ED 18:33 → M ED INP 22:58 → M MSPAV 08-08 16:48
PROVIDERS: ADMIT Family Medicine; ATTEND Internal Medicine
DX: J06.9 Acute upper respiratory infection, unspecified (principal); I50.43 Acute on chronic combined systolic (congestive) and diastolic (congestive) heart failure; G93.41 Metabolic encephalopathy; I13.0 Hypertensive heart and chronic kidney disease with heart failure and stage 1 through stage 4 chronic kidney disease, or unspecified chronic kidney disease; J45.901 Unspecified asthma with (acute) exacerbation; E78.5 Hyperlipidemia, unspecified; E03.9 Hypothyroidism, unspecified; N18.30 Chronic kidney disease, stage 3 unspecified; K21.9 Gastro-esophageal reflux disease without esophagitis; G47.33 Obstructive sleep apnea (adult) (pediatric); E83.42 Hypomagnesemia; I25.10 Atherosclerotic heart disease of native coronary artery without angina pectoris; Z79.01 Long term (current) use of anticoagulants; Z86.711 Personal history of pulmonary embolism; Z79.899 Other long term (current) drug therapy; Z95.2 Presence of prosthetic heart valve; F41.9 Anxiety disorder, unspecified; K57.90 Diverticulosis of intestine, part unspecified, without perforation or abscess without bleeding; M54.59 Other low back pain; Z96.641 Presence of right artificial hip joint; B97.4 Respiratory syncytial virus as the cause of diseases classified elsewhere

== ENCOUNTER → 2024-11-10 | Outpatient (CLI) | payer MEDICARE, OTHER ==
[~2024-11-10] MED LIST changes: +AMLO-751 PO; -AMLO10TA PO; +DOCU100C16 PO; +PRED20TA PO
== END ==
LOC: M SOG 07:53
PROVIDERS: ATTEND Orthopaedic Surgery
DX: Z96.643 Presence of artificial hip joint, bilateral (principal); Z47.1 Aftercare following joint replacement surgery

== ENCOUNTER → 2024-11-21 | Outpatient (REF) | payer MEDICARE, OTHER | LOC: M SFHCWAGY 17:15 | PROVIDERS: ATTEND Nurse Practitioner Family | DX: L29.2 Pruritus vulvae (principal) ==

== ENCOUNTER → 2025-01-30 | Outpatient (CLI) | payer MEDICARE, OTHER | LOC: M CARPUL 14:36 | PROVIDERS: ATTEND Internal Medicine Pulmonary Disease | DX: R06.02 Shortness of breath (principal) ==

== ENCOUNTER → 2025-02-12 | Outpatient (REF) | payer MEDICARE, OTHER ==
[~2025-02-12] MED LIST changes: +SENN-225 PO; -SENO8.6T5 PO
[2025-02-12 11:38] LABS: APPEARANCE, URINE CLOUDY (CLEAR); BACTERIA, URINE AUTO 1+ (NEGATIVE); BILIRUBIN, URINE AUTO NEGATIVE (NEGATIVE); BLOOD, URINE BLOOD 1+ (NEGATIVE); GLUCOSE, URINE (UA) AUTO NEGATIVE (NEGATIVE); KETONE, URINE AUTO NEGATIVE (NEGATIVE); LEUKOCYTE ESTERASE, URINE AUTO 3+ (NEGATIVE); MUCUS, URINE SMALL (NEGATIVE); NITRITE, URINE AUTO POSITIVE (NEGATIVE); PROTEIN, URINE AUTO 1+ mg/dL (NEGATIVE); RBC, URINE AUTO 14 /HPF (0-3); SPECIFIC GRAVITY URINE AUTO 1.015 (1.002-1.035); SQUAMOUS EPITHELIAL CELL UR AU 3 /HPF (0-6); UROBILINOGEN, URINE AUTO 0.2 mg/dL (0.0-2.0); WBC, URINE AUTO 145 /HPF (0-3)
== END ==
LOC: M SFHCPLAZ 11:24
PROVIDERS: ATTEND Internal Medicine Infectious Disease
DX: R31.9 Hematuria, unspecified (principal)

== ENCOUNTER → 2025-05-14 | Outpatient (CLI) | payer MEDICARE, OTHER ==
[~2025-05-14] MED LIST changes: +METH-1100 PO; -METH-855 PO
== END ==
LOC: M WHC 15:36
PROVIDERS: ATTEND Family Medicine
DX: Z53.9 Procedure and treatment not carried out, unspecified reason (principal)

== ENCOUNTER → 2025-05-25 | Outpatient (CLI) | payer MEDICARE, OTHER | LOC: M WHC 12:26 | PROVIDERS: ATTEND Family Medicine | DX: Z12.31 Encounter for screening mammogram for malignant neoplasm of breast (principal); R92.323 Mammographic fibroglandular density, bilateral breasts ==

== ENCOUNTER → 2025-05-29 | Outpatient (CLI) | payer MEDICARE, OTHER ==
[2025-05-29 13:45] LABS: BASO # 0.1 10^3/uL (0.0-0.2); BASO % 0.5 % (0.0-1.0); EOS # 0.3 10^3/uL (0.0-0.5); EOS % 2.3 % (0.0-3.0); LYMPH # 1.0 10^3/uL (1.5-5.0); LYMPH % 9.5 % (24.0-44.0); MONO # 0.7 10^3/uL (0.0-0.8); MONO % 6.0 % (2.0-8.0); NEUTROPHILS # 8.9 10^3/uL (1.5-8.5); NEUTROPHILS % 81.3 % (36.0-66.0); PLATELET COUNT, AUTOMATED 224 10^3/uL (150-450)
[2025-05-29 14:11] LABS: ESTIMATED AVERAGE GLUCOSE 108.0 MG/DL (60-110)
[2025-05-29 14:22] LABS: ALT/SGPT 15.0 U/L (7.0-40); AST/SGOT 15.0 U/L (<34); CALCIUM LEVEL 8.5 MG/DL (8.3-10.6); CARBON DIOXIDE LEVEL 28.0 MMOL/L (20-31); CHLORIDE LEVEL 107.0 MMOL/L (98-107); CHOLESTEROL LEVEL 118.0 MG/DL (<200); CHOLESTEROL RISK RATIO 2.7 (<5); CREATININE FOR GFR 1.25 MG/DL (0.55-1.30); FREE T4 1.25 NG/DL (0.89-1.76); GLOMERULAR FILTRATION RATE 42.5 (>32); LDL CHOLESTEROL 51.5 MG/DL (<100); MAGNESIUM LEVEL 1.5 MG/DL (1.8-2.4); NON-HDL-C 74.3 MG/DL; POTASSIUM SERUM 4.0 MMOL/L (3.5-5.1); PTH INTACT 72.8 PG/ML (18.5-88.0); SODIUM LEVEL 145.0 MMOL/L (136-145); TRIGLYCERIDES LEVEL 114.0 MG/DL (<150)
[2025-05-29 14:24] LABS: TOTAL 25(OH) VITAMIN D 137.3 NG/ML (20.0-100.0); VITAMIN B12 LEVEL 260.0 PG/ML (211-911)
[2025-05-30 11:57] LABS: INSULIN LEVEL 18.4 uIU/mL (<=18.4)
[2025-06-07 17:38] LABS: ALPHA 2-MACROGLOBULINS,QN 271 mg/dL (106-279); ALT (SGPT) P5P 9 U/L (6-29); APOLIPOPROTEIN A-1 152 mg/dL (101-198); FIBROSIS SCORE 0.29; FIBROSIS STAGE MINIMAL FIBROSIS (F0); GGT 10 U/L (3-65); HAPTOGLOBIN 222 mg/dL (43-212); NECROINFLAM ACT GRADE NO ACTIVITY (A0); NECROINFLAM ACT SCORE 0.02
== END ==
LOC: M PLALAB 10:18
PROVIDERS: ATTEND Family Medicine
DX: I11.0 Hypertensive heart disease with heart failure (principal); I50.32 Chronic diastolic (congestive) heart failure; E55.9 Vitamin D deficiency, unspecified; E78.2 Mixed hyperlipidemia; E03.9 Hypothyroidism, unspecified; R73.01 Impaired fasting glucose; K75.81 Nonalcoholic steatohepatitis (NASH)

== ENCOUNTER 2025-06-11 14:31 | Outpatient (CLI) | payer MEDICARE, OTHER ==
[~2025-06-11] VITALS: Ht 167.6 cm; Wt 87.2 kg
[~2025-06-11 14:31] MED LIST changes: +ALBUTEROL SULFATE 2.5 MG/0.5 ML INH CONCENTRATE NEB SOLN INH PRN; +EPINEPHrine INJ 1 MG/ML 1ML AMP IM PRN; +diphenhydrAMINE 50 MG/ML VIAL IV PRN
[2025-06-11 14:40] VITALS: BP 134/61; O2SAT 96
[2025-06-11] MEDS: FERRIC CARBOXYMALTOSE 750 MG (VIAL MATE) IN 100ML NS IV ONE (15:03)
[2025-06-11 15:30] VITALS: BP 142/68; O2SAT 97
== END 2025-06-11 15:45 | disposition home or self-care (01) ==
LOC: M INFU 14:31
PROVIDERS: ATTEND Family Medicine
DX: D50.9 Iron deficiency anemia, unspecified (principal); Z88.8 Allergy status to other drugs, medicaments and biological substances
CPT/HCPCS: 96365; J1439